=== PATIENT | male | born 1955 | race Caucasian/White ===

== ENCOUNTER 2022-11-29 08:34 | Outpatient (CLI) | payer MEDICARE, SELFPAY ==
--- NOTE | ~2022-11-29 | PE_ITS ---
EXAMINATION: PET skull to mid thigh DATE: 11/29/2022 10:53 INDICATION: Multiple nodules of lung TECHNIQUE: Blood glucose level was 107 mg/dL. 10.0 mCi of 18-fluorodeoxyglucose (18-FDG) was administ ered i.v. Low dose computed tomography (CT) images were acquired from the base of the brain to the pr oximal thighs for attenuation correction and anatomic localization. Positron emission tomography (PET ) images were acquired in the same distribution beginning 47 minutes after injection. Images includin g fused PET/CT images were reconstructed in axial, coronal, and sagittal planes. Automated exposure c ontrol technique was employed. The dose-length product was 1280.34mGy-cm. COMPARISON: None FINDINGS: Head/neck: There is symmetric increased activity in the oral cavity, laryngeal muscles, ocular muscles and rectu s capitis muscles without CT correlate, likely physiologic. No pathologically enlarged cervical lymph adenopathy or suspicious foci of increased FDG uptake in the visualized head or neck. Chest: The internal jugular central venous catheter with distal tip at the caudal superior vena cava. Left-s ided cardiac pacemaker with pair of left ventricular pacemaker leads which terminate at the apex of t he right ventricle. Respiratory motion and mild bibasilar atelectasis. 4 mm nodule in the right upper lobe with no discernible FDG activity. Calcified right lower lobe nodule and calcified right hilar l ymph nodes consistent with old granulomatous disease. No other suspicious pulmonary nodules or pleura l effusion. Cardiomegaly with atherosclerotic coronary artery calcific location and change of prior m edian sternotomy and coronary artery bypass grafting. Thoracic aorta is normal in caliber. No patholo gically enlarged or FDG avid thoracic lymphadenopathy. Surgical clips at the right axilla. Abdomen/pelvis/proximal thighs: Physiologic renal accumulation and excretion of FDG activity in the kidneys, bladder and along portio ns of ureters. Normal degree and heterogenous pattern of increased uptake throughout the liver withou t radiologic correlate or dominant FDG avid lesion. The gallbladder, pancreas and bilateral adrenal g lands are normal. Small splenic calcifications consistent with old granulomatous disease. Mild uptake scattered throughout the bowels without radiologic correlate, also likely physiologic. There are few scattered colonic diverticula without adjacent inflammatory stranding to suggest diverticulitis. Nor mal appendix. Increased fat within the bilateral inguinal canals which could be related to inguinal h ernias or body habitus. Stenting along the left external iliac and vein. No other abnormal foci of in creased FDG uptake or pathologically enlarged lymphadenopathy in the abdomen, pelvis or proximal thig hs. Musculoskeletal: Small focus of mild increased uptake associated with a recent-appearing rib fracture at the anterior right seventh rib. A few additional old healed rib fracture without FDG activity. No suspicious lytic , blastic or FDG avid bone lesions. Likely degenerative mild linear synovial uptake related to modera te osteoarthritis at the right acromioclavicular joint with associated subarticular cystic changes. S mall focus of likely extravasated activity in the left antecubital fossa. Likely physiologic activity along the musculature in the bilateral hands and forearms. IMPRESSION: 1. 4 mm right upper lobe nodule without discernible FDG uptake although sensitivity for [place] nod ules can be limited with patent. No other evident pulmonary nodules identified although no prior imag ing is provided for comparison. If the patient is low risk for lung cancer, no follow-up is needed. I f the patient is high risk (i.e., history of smoking or asbestos or significant radiation exposure), optional follow-up chest CT could be considered at 12 months.
[2022-11-29 09:33] LABS: Glucose Point of Care 107 mg/dl (65-105)
== END 2022-11-29 08:35 | disposition home or self-care (01) ==
PROVIDERS: PCP Internal Medicine; Visit Provider Internal Medicine
DX: R91.1 Solitary pulmonary nodule (principal); R93.89 Abnormal findings on diagnostic imaging of other specified body structures; E11.9 Type 2 diabetes mellitus without complications
CPT/HCPCS: 78815; A9552

== ENCOUNTER 2024-07-28 10:59 | Inpatient (IN) | payer MEDICARE, SELFPAY ==
--- NOTE | ~2024-07-28 | CT_ITS ---
EXAMINATION: CT lumbar spine wo con DATE: 07/28/2024 17:39 INDICATION: lbp x several days after heavy lifting . TECHNIQUE: Computed tomography (CT) of the lumbar spine was performed without intravenous contrast. A utomated exposure control and iterative reconstruction technique were employed. The dose-length produ ct was 1919.71 mGy-cm. COMPARISON: None. FINDINGS: 5 nonrib-bearing lumbar-type vertebral bodies. Pedicles intact. 9 mm anterolisthesis at L4- 5. Severe disc space narrowing at L4-5 with vacuum phenomenon. Mild degenerative disc changes at all remaining visualized levels. Bilateral pars defects at L4. Moderate mid and lower lumbar facet hypert rophy and sclerosis. Severe bilateral neural foraminal narrowing at L4-5. Congenitally narrow appeari ng spinal canal. Severe central canal narrowing at L2-3 secondary to degenerative disc and facet castellon ges including a likely left facet synovial cyst. Left external iliac vein stent. Atherosclerotic arterial calcifications. Pacing wires and coronary ar lu calcifications. Calcified right lower lobe granuloma. Cardiomegaly. Nonobstructing punctate righ t renal calcifications. Degenerative changes in the bilateral SI joints, pubic symphysis, and bilater al hips. IMPRESSION: No acute fracture or traumatic malalignment in the lumbar spine. Grade 1 anterolisthesis at L4-5 secondary to bilateral L4 pars defects. Severe central canal narrowing at L2-3 secondary to degenerative disc and facet changes including an anteriorly directed left facet synovial cyst. Severe degenerative disc disease at L4-5, with severe bilateral neural foraminal narrowing at this le thelma secondary to the listhesis and degenerative disc and facet change. Reviewed, dictated and finalized at location K. IMPRESSION: No acute fracture or traumatic malalignment in the lumbar spine. Grade 1 anterolisthesis at L4-5 secondary to bilateral L4 pars defects. Severe central canal narrowing at L2-3 secondary to degenerative disc and facet changes including an anteriorly directed left facet synovial cyst. Severe degenerative disc disease at L4-5, with severe bilateral neural foramina l narrowing at this level secondary to the listhesis and degenerative disc and facet change.
--- NOTE | ~2024-07-28 | XR_ITS ---
Portable chest x-ray Comparison: None Clinical History: End-stage renal disease Findings: Right-sided central venous catheter in satisfactory position. Lungs are clear, without foc al consolidation or pleural effusion. Cardiomediastinal silhouette is prominent, status post CABG wi th pacemaker device. Bones and soft tissues are unremarkable. Impression: Clear lungs. Support line, as above. Mild cardiomegaly, status post CABG with pacemaker device. Reviewed, dictated and finalized at location M. Impression: Clear lungs. Support line, as above. Mild cardiomegaly, status post CABG with pacemaker device.
[2024-07-28 11:01] VITALS: BP 146/95; PULSE 66; RESP 22; TEMP 37; O2SAT 99
[2024-07-28 16:55] VITALS: BP 148/78; PULSE 91; RESP 23; TEMP 36.8; O2SAT 99
--- NOTE | 2024-07-28 17:36 | ED.BACK ---
HPI - Back Pain/Injury General Chief Complaint: Back Pain/Injury <Alannah Klein PA-C - Last Filed: 07/29/24 03:44> Stated Complaint: back pain from pain management <Alannah Klein PA-C - Last Filed: 07/29/24 03:44> Time Seen by Provider: 07/28/24 17:01 <DENIS Velazco Last Filed: 07/29/24 03:44> Source: patient <DENIS Velazco Last Filed: 07/29/24 03:44> Mode of arrival: EMS <DENIS Velazco Last Filed: 07/29/24 03:44> Limitations: no limitations <DENIS Velazco Last Filed: 07/29/24 03:44> History of Present Illness HPI Narrative: Patient is a 68-year-old male, with PMH of chronic back pain, ESRD on HD MWF, HTN, CHF, AFIB, who presents to the ED via EMS with report of back pain. Patient reports his fell in the shower last . He attempted to help her off the ground when he felt he tweaked his back. States he began having more severe pain in his R lower back, radiating down RLE, on Saturday to the point he was unable to receive his dialysis treatment that day. He had been seen in the ED at [facility] twice over the weekend for this pain. 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 Patient does see pain management for his chronic back pain. Is prescribed [place] 10/325. Took several these this morning without improvement. Patient did ultimately receive his dialysis treatments over the weekend and yesterday. He sees Dr. Irwin with nephrology. Patient denies bowel or bladder incontinence, abdominal pain, numbness, saddle anesthesia, weakness. He does note that he has been having trouble moving/walking/managing at home with pain. <DENIS Velazco Last Filed: 07/29/24 03:44> Related Data Home Medications: Home Medications Medication Instructions Recorded Confirmed albuterol sulfate 90 mcg/actuation 2 puff inhalation Q4H PRN 07/28/24 07/28/24 aerosol inhaler shortness of breath/wheezing allopurinol 100 mg tablet 300 mg PO DAILY 07/28/24 07/28/24 apixaban 5 mg tablet (Eliquis) 5 mg PO BID 07/28/24 07/28/24 atorvastatin 40 mg tablet 40 mg PO DAILY 07/28/24 07/28/24 escitalopram oxalate 10 mg tablet 10 mg PO DAILY 07/28/24 07/28/24 hydrocodone 10 mg-acetaminophen 1 tablet PO Q6H PRN Pain 07/28/24 07/28/24 325 mg tablet insulin NPH-regular hum semi-syn 30 ml subcut BID 07/28/24 07/28/24 100 unit/mL (70-30) subcutaneous soln isosorbide mononitrate 60 mg 60 mg PO DAILY 07/28/24 07/28/24 tablet,extended release 24 hr levothyroxine 25 mcg tablet 25 mcg PO DAILY 07/28/24 07/28/24 methocarbamol 750 mg tablet 750 mg PO QID spasms 07/28/24 07/28/24 pantoprazole 40 mg tablet,delayed 40 mg PO DAILY 07/28/24 07/28/24 release sevelamer carbonate 800 mg tablet 800 mg PO TID 07/28/24 07/28/24 trazodone 50 mg tablet 50 mg PO HS 07/28/24 07/28/24 <Alannah Klein PA-C - Last Filed: 07/29/24 03:44> Allergies/Adverse Reactions: Allergies Allergy/AdvReac Type Severity Reaction Status Date / Time iohexol Allergy Unknown Verified 07/28/24 20:15 [From contrast - CT, X-RAY] <Alannah Klein PA-C - Last Filed: 07/29/24 03:44> Review of Systems Review of Systems: All systems reviewed & are unremarkable except as noted in HPI. <DENIS Velazco Last Filed: 07/29/24 03:44> All systems reviewed & are unremarkable except as noted in HPI and below <Alannah Klein PA-C - Last Filed: 07/29/24 03:44> [facility] Family History Family History: Family History (Updated 07/28/24 @ 21:07 by Colleen Allen RN) Mother Hypertension Cancer Diabetes mellitus Father Cancer Congestive heart failure Acute myocardial infarction <Alannah Klein PA-C - Last Filed: 07/29/24 03:44> Social History Social History: Social History (Reviewed 07/28/24 @
[2024-07-28] MEDS: methylPREDNISolone SOD SUCC 125 MG VIAL IV PUSH (17:45)
[2024-07-28] MEDS: methocarbamoL 500 MG TABLET 1000 MG PO (17:45)
[2024-07-28 18:06] LABS: Basophils Percent Auto 0.1 % (0.2-1.2); Eosinophils Absolute Auto 0.1 K/mm3 (0-0.3); Eosinophils Percent Auto 0.4 % (0-4.4); Hematocrit 32.4 % (42.0-52.0); Hemoglobin 10.4 g/dL (14.0-18.0); Immature Granulocyte Absolute 0.08 K/mm3 (0.00-0.031); Immature Granulocyte Percent A 0.5 % (0-0.5); Lymphocytes Absolute Auto 0.98 K/mm3 (0.9-3.2); Lymphocytes Percent Auto 6.5 % (18.3-44.2); Mean Corpuscular HGB Conc 32.1 g/dl (32-36); Mean Corpuscular Hemoglobin 34.8 pg (26-34); Mean Corpuscular Volume 108.4 fl (80-100); Mean Platelet Volume 11.9 fl (7.4-10.4); Monocytes Absolute Auto 1.2 K/mm3 (0.1-0.6); Monocytes Percent Auto 8.1 % (2.6-8.5); Neutrophils Absolute Auto 12.6 K/mm3 (1.3-6.7); Neutrophils Percent Auto 84.4 % (45.5-73.1); Platelet Count Result 181 k/mm3 (150-375); Red Blood Count 2.99 M/mm3 (4.6-6.20); Red Cell Distribution Width 15.9 % (11.5-14.5)
[2024-07-28 18:17] LABS: Alanine Aminotransferase 12 U/L (6-50); Albumin Level 3.6 g/dL (3.5-5.1); Alkaline Phosphatase 92 U/L (38-126); Anion Gap 13 mmol/L (4-12); Aspartate Amino Transferase 30 U/L (17-59); Bilirubin,Total 0.8 mg/dL (0.2-1.3); Blood Urea Nitrogen 62 mg/dL (9-20); Calcium 8.4 mg/dL (8.4-10.2); Carbon Dioxide 27 mmol/L (22-30); Chloride 93 mmol/L (98-107); Estimated CRCL calculation 10 ml/min; Estimated Glomerular Filt Rate 6; Glucose 113 mg/dL (65-110); Potassium 4.8 mmol/L (3.4-5.0); Sodium 133 mmol/L (137-145)
[2024-07-28 18:35] LABS: Anisocytosis 1+; Platelet Estimate Adequate (Adequate)
[2024-07-28 18:36] LABS: Ovalocytes 1+; Schistocytes None Seen
[2024-07-28] MEDS: HYDROmorphone HCL INJ (*CRX) 1 MG/ML SYR 0.5 MG IV PUSH (18:49)
[2024-07-28] MEDS: ACETAMINOPHEN 500 MG TABLET 1000 MG PO (19:50)
--- NOTE | 2024-07-28 19:59 | PM.IMHP ---
H&P: HPI History of Present Illness Date/Time: 07/28/24 19:59 Chief Complaint: SCIATICA Narrative: THIS IS A 68-YEAR-OLD MALE WITH PAST MEDICAL HISTORY SIGNIFICANT FOR MORBID OBESITY, END-STAGE RENAL DISEASE ON HEMODIALYSIS, GOUT, ANEMIA OF CHRONIC DISEASE, CHRONIC BACK PAIN. PATIENT PRESENTS TO THE EMERGENCY ROOM DUE TO INTRACTABLE BACK PAIN WITH RADIATION TO THE TOES THROUGH HIS HEALTH BACK OF THE THIGH AND CALF PAIN WITH AMBULATION, PAIN WITH MOVEMENT, ONLY PAIN MEDICATION AND LAYING IN BED RELIEVES THE PAIN PATIENT HAS HAD TAXING EFFORT DOING HIS ADLS DUE TO THE PAIN. EXAMINATION: CT lumbar spine wo con DATE: 07/28/2024 17:39 INDICATION: lbp x several days after heavy lifting . TECHNIQUE: Computed tomography (CT) of the lumbar spine was performed without intravenous contrast. Automated exposure control and iterative reconstruction technique were employed. The dose-length product was 1919.71 mGy-cm. COMPARISON: None. FINDINGS: 5 nonrib-bearing lumbar-type vertebral bodies. Pedicles intact. 9 mm anterolisthesis at L4-5. Severe disc space narrowing at L4-5 with vacuum phenomenon. Mild degenerative disc changes at all remaining visualized levels. Bilateral pars defects at L4. Moderate mid and lower lumbar facet hypertrophy and sclerosis. Severe bilateral neural foraminal narrowing at L4-5. Congenitally narrow appearing spinal canal. Severe central canal narrowing at L2-3 secondary to degenerative disc and facet changes including a likely left facet synovial cyst. Left external iliac vein stent. Atherosclerotic arterial calcifications. Pacing wires and coronary artery calcifications. Calcified right lower lobe granuloma. Cardiomegaly. Nonobstructing punctate right renal calcifications. Degenerative changes in the bilateral SI joints, pubic symphysis, and bilateral hips. IMPRESSION: No acute fracture or traumatic malalignment in the lumbar spine. Grade 1 anterolisthesis at L4-5 secondary to bilateral L4 pars defects. Severe central canal narrowing at L2-3 secondary to degenerative disc and facet changes including an anteriorly directed left facet synovial cyst. Severe degenerative disc disease at L4-5, with severe bilateral neural foraminal narrowing at this level secondary to the listhesis and degenerative disc and facet change. Review of Systems Review of Systems: lower back pain with radiation down the R leg, shooting down to his toes, worse with movement PMF Family History Family History (Updated 07/28/24 @ 21:07 by Colleen Allen RN) Mother Hypertension Cancer Diabetes mellitus Father Cancer Congestive heart failure Acute myocardial infarction Social History Social History Smoking packs per day: 2 Smoking cigarettes per day: 40.0 Years smoked: 40 Smoking pack-years: 80.00 Smoking status: Former smoker Alcohol intake: never Substance use: never Substance use type: does not use Do You Feel Safe in your Home?: Yes Lack of Transportation: No Lack of Food: Never True Current Housing: I Have Housing Concerned About Future Housing: No Difficulty Paying Gas/Electric Bills: No Difficulty Paying for Meds: No Currently Unemployed: No Education: High School Diploma/GED Difficulty w/ Childcare or Family Care: No Spiritual care concerns: No Meds Home Medications and Allergies Home Medications Medication Instructions Recorded Confirmed Type albuterol sulfate 90 mcg/actuation 2 puff inhalation Q4H PRN 07/28/24 07/28/24 History aerosol inhaler shortness of breath/wheezing allopurinol 100 mg tablet 300 mg PO DAILY 07/28/24 07/28/24 History apixaban 5 mg tablet (Eliquis) 5 mg PO BID 07/28/24 07/28/24 History atorvastatin 40 mg tablet 40 mg PO DAILY 07/28/24 07/28/24 History escitalopram oxalate 10 mg tablet 10 mg PO DAILY 07/28/24 07/28/24 History hydrocodone 10 mg-acetaminophen 1 tablet PO Q6H [place]
[2024-07-28] MEDS: dexAMETHasone SOD PHOS INJ 10 MG/ML 1 ML VIAL IV PUSH (20:40)
--- NOTE | 2024-07-28 20:41 | PC.NURSE ---
Pt does not want to be placed in a hospital gown at this time. Pt may want one later, but not now.
[2024-07-28 20:44] VITALS: BP 134/63; PULSE 67; RESP 16; TEMP 36.5; O2SAT 98
[2024-07-28 21:25] VITALS: BP 134/63; PULSE 67; RESP 16; TEMP 36.5; O2SAT 98
--- NOTE | 2024-07-28 21:40 | ADMGEN ---
This patient, Yobany Garner, was admitted to [facility] Surg Room 306-01. Patient/family oriented to hospital policies and general routines including ID bracelet, bed and alarms, visiting hours, pain management, procedures, bathroom and other care routines, personal items, smoking policy, room service/diet, and visiting hours. Information on how to activate the Rapid Response Team has been discussed. Patient/Family are encouraged to report perceived risks to care and to ask questions if they do not understand what they are told or what they should do.
[2024-07-28 22:00] VITALS: BP 149/51; PULSE 69; RESP 22; TEMP 36.9; O2SAT 96
[2024-07-28 22:04] VITALS: BMI 40.5
[2024-07-28 23:16] LABS: MRSA (PCR) NOT DETECTED (NOT DETECTE)
[2024-07-29] VITALS (23 sets, daily range): BP systolic 123–164; BP diastolic 44–92; PULSE 56–67; RESP 16–20; TEMP 36.5–37.1; O2SAT 94–100
[2024-07-29] MEDS: HYDROcodone/acetaminophen (*CRX) 10-325 MG TABLET 1 TAB PO (07:00)
[2024-07-29] MEDS: LEVOTHYROXINE SODIUM 25 MCG TABLET PO (07:00)
[2024-07-29 07:20] LABS: Hepatitis B Surface Antigen Negative (Negative)
[2024-07-29 07:32] LABS: Basophils Percent Auto 0.1 % (0.2-1.2); Hematocrit 36.3 % (42.0-52.0); Hemoglobin 11.4 g/dL (14.0-18.0); Immature Granulocyte Absolute 0.07 K/mm3 (0.00-0.031); Immature Granulocyte Percent A 0.6 % (0-0.5); Lymphocytes Absolute Auto 0.42 K/mm3 (0.9-3.2); Lymphocytes Percent Auto 3.4 % (18.3-44.2); Mean Corpuscular HGB Conc 31.4 g/dl (32-36); Mean Corpuscular Hemoglobin 33.8 pg (26-34); Mean Corpuscular Volume 107.7 fl (80-100); Mean Platelet Volume 11.5 fl (7.4-10.4); Monocytes Absolute Auto 0.1 K/mm3 (0.1-0.6); Monocytes Percent Auto 1.1 % (2.6-8.5); Neutrophils Absolute Auto 11.9 K/mm3 (1.3-6.7); Neutrophils Percent Auto 94.8 % (45.5-73.1); Platelet Count Result 188 k/mm3 (150-375); Red Blood Count 3.37 M/mm3 (4.6-6.20); Red Cell Distribution Width 15.4 % (11.5-14.5); White Blood Count 12.5 K/mm3 (4.5-10.0)
[2024-07-29 07:38] LABS: Hepatitis B Surface Anti Res Negative
[2024-07-29 07:50] LABS: Macrocytosis 1+ (NORMAL); Platelet Estimate Adequate (Adequate); Schistocytes None Seen
[2024-07-29 07:51] LABS: Anisocytosis 1+
[2024-07-29 07:53] LABS: Alanine Aminotransferase 14 U/L (6-50); Albumin Level 3.9 g/dL (3.5-5.1); Alkaline Phosphatase 95 U/L (38-126); Anion Gap 16 mmol/L (4-12); Aspartate Amino Transferase 30 U/L (17-59); Bilirubin,Total 0.8 mg/dL (0.2-1.3); Blood Urea Nitrogen 83 mg/dL (9-20); Carbon Dioxide 27 mmol/L (22-30); Chloride 89 mmol/L (98-107); Estimated CRCL calculation 9 ml/min; Estimated Glomerular Filt Rate 5; Glucose 176 mg/dL (65-110); Magnesium 2.2 mg/dL (1.6-2.3); Phosphorus 7.8 mg/dL (2.5-4.5); Potassium 5.9 mmol/L (3.4-5.0); Sodium 132 mmol/L (137-145)
[2024-07-29] MEDS: dexAMETHasone SOD PHOS INJ 10 MG/ML 1 ML VIAL IV PUSH ×3 (08:41→19:22)
[2024-07-29] MEDS: INSULIN HUMAN ISOPHAN/REGULAR 70/30 (*BKC) 100 UNITS/ML 30 UNITS SUB-Q ×2 (08:45→17:15)
[2024-07-29] MEDS: HEPARIN SODIUM 1,000 UNITS/ML VIAL 5000 UNITS IV PUSH (09:20)
[2024-07-29] MEDS: HEPARIN SODIUM 1,000 UNITS/ML VIAL 500 UNITS IV PUSH ×4 (09:24→12:24)
--- NOTE | 2024-07-29 10:00 | PM.IMHP ---
H&P: HPI History of Present Illness Date/Time: 07/29/24 10:00 [facility] Family History Family History (Updated 07/28/24 @ 21:07 by Colleen Allen RN) Mother Hypertension Cancer Diabetes mellitus Father Cancer Congestive heart failure Acute myocardial infarction Social History Social History Smoking packs per day: 2 Smoking cigarettes per day: 40.0 Years smoked: 40 Smoking pack-years: 80.00 Smoking status: Former smoker Alcohol intake: never Substance use: never Substance use type: does not use Do You Feel Safe in your Home?: Yes Lack of Transportation: No Lack of Food: Never True Current Housing: I Have Housing Concerned About Future Housing: No Difficulty Paying Gas/Electric Bills: No Difficulty Paying for Meds: No Currently Unemployed: No Education: High School Diploma/GED Difficulty w/ Childcare or Family Care: No Spiritual care concerns: No Meds Home Medications and Allergies Home Medications Medication Instructions Recorded Confirmed Type albuterol sulfate 90 mcg/actuation 2 puff inhalation Q4H PRN 07/28/24 07/28/24 History aerosol inhaler shortness of breath/wheezing allopurinol 100 mg tablet 300 mg PO DAILY 07/28/24 07/28/24 History apixaban 5 mg tablet (Eliquis) 5 mg PO BID 07/28/24 07/28/24 History atorvastatin 40 mg tablet 40 mg PO DAILY 07/28/24 07/28/24 History escitalopram oxalate 10 mg tablet 10 mg PO DAILY 07/28/24 07/28/24 History hydrocodone 10 mg-acetaminophen 1 tablet PO Q6H PRN Pain 07/28/24 07/28/24 History 325 mg tablet insulin NPH-regular hum semi-syn 30 ml subcut BID 07/28/24 07/28/24 History 100 unit/mL (70-30) subcutaneous soln isosorbide mononitrate 60 mg 60 mg PO DAILY 07/28/24 07/28/24 History tablet,extended release 24 hr levothyroxine 25 mcg tablet 25 mcg PO DAILY 07/28/24 07/28/24 History methocarbamol 750 mg tablet 750 mg PO QID spasms 07/28/24 07/28/24 History pantoprazole 40 mg tablet,delayed 40 mg PO DAILY 07/28/24 07/28/24 History release sevelamer carbonate 800 mg tablet 800 mg PO TID 07/28/24 07/28/24 History trazodone 50 mg tablet 50 mg PO HS 07/28/24 07/28/24 History Allergies Allergy/AdvReac Type Severity Reaction Status Date / Time iohexol Allergy Unknown Verified 07/28/24 20:15 [From contrast - CT, X-RAY] Vital Signs Vital Signs - 24 hr 07/28/24 11:01 07/28/24 16:55 07/28/24 20:44 Temperature 98.6 F 98.3 F 97.7 F Pulse Rate 66 91 67 Respiratory Rate 22 H 23 H 16 Blood Pressure 146/95 H 148/78 H 134/63 Pulse Oximetry 99 99 98 Oxygen Delivery Room Air 07/28/24 21:25 07/28/24 22:00 07/28/24 22:45 Temperature 97.7 F 98.5 F Pulse Rate 67 69 Respiratory Rate 16 22 H Blood Pressure 134/63 149/51 H Pulse Oximetry 98 96 Oxygen Delivery Room Air 07/29/24 06:00 Temperature 97.7 F Pulse Rate 64 Respiratory Rate 18 Blood Pressure 123/69 Pulse Oximetry 100 Oxygen Delivery Exam Narrative: H&P: Results Labs Labs: Short CBC 07/28/24 07/29/24 Range/Units 18:01 07:26 WBC 15.0 H 12.5 H (4.5-10.0) K/mm3 Hgb 10.4 L 11.4 L (14.0-18.0) g/dL Hct 32.4 L 36.3 L (42.0-52.0) % Plt Count 181 188 (150-375) k/mm3 [facility] 07/28/24 07/29/24 18:01 07:26 Sodium 133 L 132 L Potassium 4.8 5.9 H Chloride 93 L 89 L Carbon Dioxide 27 27 BUN 62 H 83 H D Creatinine 8.80 H 10.00 H Glucose 113 H 176 H Calcium 8.4 9.0 Liver Function 07/28/24 07/29/24 Range/Units 18:01 07:26 Total Bilirubin 0.8 0.8 (0.2-1.3) mg/dL AST 30 30 (17-59) U/L ALT 12 14 (6-50) U/L Alkaline Phosphatase 92 95 (38-126) U/L Albumin 3.6 3.9 (3.5-5.1) g/dL
[2024-07-29 10:50] LABS: Folic Acid 2.5 ng/mL (2.76->20)
--- NOTE | 2024-07-29 12:11 | PM.CNNEP ---
Assessment and Plan Assessment and plan (1) End stage renal disease: Code(s): N18.6 - End stage renal disease Status: Chronic Assessment and Plan: HD today continue outpatient schedule of Sat/Sat/Fridays follow electrolytes, volume status, and clearance known to require 4.5 hour treatments to achieve adequate Kt/V and clearance (2) Hyperkalemia: Code(s): E87.5 - Hyperkalemia Status: Acute Assessment and Plan: as noted by AM labs adjust dialysis bath to compensate lokelma PRN follow K+ levels (3) Low back pain: Code(s): M54.50 - Low back pain, unspecified Status: Acute Assessment and Plan: acute on chronic issues CT of lumbar spine findings noted -- no acute findings continue pain control PT/OT as tolerated Neurosurgery consulted for further recommendations possible benefit from acute rehab on discharge(?) (4) Hypertension: Code(s): I10 - Essential (primary) hypertension Status: Chronic Assessment and Plan: despite history, reasonable control with minimal medications suspect pain medication indirectly helping as well follow trend of hemodynamics (5) Anemia: Code(s): D64.9 - Anemia, unspecified Status: Chronic Assessment and Plan: due to ESRD H/H at goal AYALA with HD as needed follow H/H (6) Diabetes: Code(s): E11.9 - Type 2 diabetes mellitus without complications Status: Chronic Assessment and Plan: follow accu-cheks glycemic control per hospitalists I will continue to follow the patient with you while he remains hospitalized and make further recommendations as deemed necessary. Thank you for allowing me to participate in the care of this patient. History of Present Illness Reason for Consult Consult date: 07/29/24 Reason for consult: end stage renal disease Chief Complaint Chief complaint: Acute on Chronic Low Back Pain/DDD/ESRD on HD History of Present Illness Narrative: The patient is a 68-year-old male with a past medical history as outlined below who presented to [facility] Emergency room via EMS for severe back pain. The patient states that his fell in the shower several days ago. He attempted to help her off the ground when he felt like he weak his back. Ever since then, he has been having more severe back pain more so on the right side with radiation down to his right lower extremity. The pain was apparently so severe that he was unable to get his scheduled dialysis treatment last Saturday. Due the severity of his back pain, he has apparently been seen at [facility] Emergency room at least twice over the weekend for this pain. I am not clear was entirely done on those ER visits but he was subsequently discharged and instructed to follow up with his pain management doctor. He did go see his pain management doctor just recently but was in such severe pain he was instructed to go to the ER for further assessment. In the interim, he had been taking [place] 10/325 mg tablets but this did not seem to really improve his pain whatsoever. Given the severity of his pain, he has had difficulty ambulating in general as well. Given these multitude of issues and problems, he was brought to the emergency room for further assessment. Workup and evaluation in the emergency room demonstrated the patient to be in mild distress secondary to his pain and had difficulty achieving any type of comfort while being in the stretcher. Even sitting upright in the stretcher did not seem to really help his pain whatsoever. Routine blood test demonstrated labs consistent with his known history of end-stage renal disease with no other significant abnormalities. In attempt to try and curves itis pain he was given a combination of Tylenol, muscle relaxers, Dilaudid, and steroids which did improve his pain to some degree but he was still quite uncomfortable. C
--- NOTE | 2024-07-29 12:42 | P.PNIM_ITS ---
Progress Note: A&P Assessment and Plan (1) Strain of lumbar region: Qualifiers: Encounter type: initial encounter Qualified Code(s): S39.012A - Strain of muscle, fascia and tendon of lower back, initial encounter Code(s): S39.012A - Strain of muscle, fascia and tendon of lower back, initial encounter Status: Acute Assessment and Plan: * Ct Lumbar with severe DDD * Pain control * PT/OT * Steroids * Will be following up with pain management clinic for his chronic adrienne pain * Lidocaine patch (2) Acute exacerbation of chronic low back pain: Code(s): M54.50 - Low back pain, unspecified; G89.29 - Other chronic pain Status: Acute Assessment and Plan: * SEE ABOVE (3) ESRD on hemodialysis: Code(s): N18.6 - End stage renal disease; Z99.2 - Dependence on renal dialysis Status: Acute Assessment and Plan: * Nephrology consulted * Dialysis MW * monitor electrolytes replenish as needed (4) Anemia of chronic disease: Code(s): D63.8 - Anemia in other chronic diseases classified elsewhere Status: Acute Assessment and Plan: * Secondary to ESRD * Hgb stable * CBC daily (5) Morbid obesity with BMI of 40.0-44.9, adult: Code(s): E66.01 - Morbid (severe) obesity due to excess calories; Z68.41 - Body mass index [BMI] 40.0-44.9, adult Status: Acute Assessment and Plan: Obesity * encourage increased on physical activity and lifestyle modifications * BMI 40.5. * Diet exercise counseling done. * consult to dietitian Plan Code status: Full code per patient DVT prophylaxis: Heparin Stress ulcer prophylaxis: Protonix 40 daily PT/OT notes: PT/OT pending Disposition: Patient continues admission on the medical unit for further pain control due to acute on chronic back pain PT OT pending patient to follow-up with pain specialist following discharge. Time Spent With Patient Time with patient: 15 - 25 minutes Subjective Date/time seen: 07/29/24 12:42 Interval history: Admission: Medical Chart THIS IS A 68-YEAR-OLD MALE WITH PAST MEDICAL HISTORY SIGNIFICANT FOR MORBID OBESITY, END-STAGE RENAL DISEASE ON HEMODIALYSIS, GOUT, ANEMIA OF CHRONIC DISEASE, CHRONIC BACK PAIN. PATIENT PRESENTS TO THE EMERGENCY ROOM DUE TO INTRACTABLE BACK PAIN WITH RADIATION TO THE TOES THROUGH HIS HEALTH BACK OF THE THIGH AND CALF PAIN WITH AMBULATION, PAIN WITH MOVEMENT, ONLY PAIN MEDICATION A ND LAYING IN BED RELIEVES THE PAIN PATIENT HAS HAD TAXING EFFORT DOING HIS ADLS DUE TO THE PAIN. 07/29/2024: Assumed Care Patient seen in dialysis do mildly better but has severe pain with any movement. Patient stated the pain started after he helped his out the bath tub. Patient with chronic back pain was seen at the pain specialist who sent him to the ER for immediate pain control stated he was unable to ambulate in their office but can follow-up after discharge. PT/OT pending. Review of Systems Review of Systems: All systems reviewed & ar
--- NOTE | 2024-07-29 12:42 | PM.IMPN ---
Progress Note: A&P Assessment and Plan (1) Strain of lumbar region: Qualifiers: Encounter type: initial encounter Qualified Code(s): S39.012A - Strain of muscle, fascia and tendon of lower back, initial encounter Code(s): S39.012A - Strain of muscle, fascia and tendon of lower back, initial encounter Status: Acute Assessment and Plan: Ct Lumbar with severe DDD Pain control PT/OT Steroids Will be following up with pain management clinic for his chronic adrienne pain Lidocaine patch (2) Acute exacerbation of chronic low back pain: Code(s): M54.50 - Low back pain, unspecified; G89.29 - Other chronic pain Status: Acute Assessment and Plan: SEE ABOVE (3) ESRD on hemodialysis: Code(s): N18.6 - End stage renal disease; Z99.2 - Dependence on renal dialysis Status: Acute Assessment and Plan: Nephrology consulted Dialysis MWF monitor electrolytes replenish as needed (4) Anemia of chronic disease: Code(s): D63.8 - Anemia in other chronic diseases classified elsewhere Status: Acute Assessment and Plan: Secondary to ESRD Hgb stable CBC daily (5) Morbid obesity with BMI of 40.0-44.9, adult: Code(s): E66.01 - Morbid (severe) obesity due to excess calories; Z68.41 - Body mass index [BMI] 40.0-44.9, adult Status: Acute Assessment and Plan: Obesity encourage increased on physical activity and lifestyle modifications BMI 40.5. Diet exercise counseling done. consult to dietitian Plan Code status: Full code per patient DVT prophylaxis: Heparin Stress ulcer prophylaxis: Protonix 40 daily PT/OT notes: PT/OT pending Disposition: Patient continues admission on the medical unit for further pain control due to acute on chronic back pain PT OT pending patient to follow-up with pain specialist following discharge. Time Spent With Patient Time with patient: 15 - 25 minutes Subjective Date/time seen: 07/29/24 12:42 Interval history: Admission: Medical Chart THIS IS A 68-YEAR-OLD MALE WITH PAST MEDICAL HISTORY SIGNIFICANT FOR MORBID OBESITY, END-STAGE RENAL DISEASE ON HEMODIALYSIS, GOUT, ANEMIA OF CHRONIC DISEASE, CHRONIC BACK PAIN. PATIENT PRESENTS TO THE EMERGENCY ROOM DUE TO INTRACTABLE BACK PAIN WITH RADIATION TO THE TOES THROUGH HIS HEALTH BACK OF THE THIGH AND CALF PAIN WITH AMBULATION, PAIN WITH MOVEMENT, ONLY PAIN MEDICATION AND LAYING IN BED RELIEVES THE PAIN PATIENT HAS HAD TAXING EFFORT DOING HIS ADLS DUE TO THE PAIN. 07/29/2024: Assumed Care Patient seen in dialysis do mildly better but has severe pain with any movement. Patient stated the pain started after he helped his out the bath tub. Patient with chronic back pain was seen at the pain specialist who sent him to the ER for immediate pain control stated he was unable to ambulate in their office but can follow-up after discharge. PT/OT pending. Review of Systems Review of Systems: All systems reviewed & are unremarkable except as noted in HPI and below Exam Narrative: Physical Exam: GENERAL: Alert and oriented x 3. No acute distress. EYES: EOMI. No scleral icterus. PERRLA. nystagmus HEENT: Moist mucous membranes. LUNGS: Clear to auscultation bilaterally. No accessory muscle use. CARDIOVASCULAR: Regular rate and rhythm. No murmur. No JVD. S1-S2 ABDOMEN: Soft, non tenderness and non-distended. No palpable masses. EXTREMITIES: No edema. Pain with movement BLE SKIN: No rashes or lesions. Skin warm, dry. NEUROLOGIC: No focal neurological deficits. CN II-XII grossly intact PSYCHIATRIC: Appropriate mood and affect. Good judgement and insight. No visual or auditory hallucinations. No suicidal or homicidal ideation. Objective Data Vital Signs Vital Signs: Vital Signs - 24 hr 07/28/24 16:55 07/28/24 20:44 07/28/24 21:25 Temperature 98.3 F 97.7 F 97.7 F Pulse Rate
[2024-07-29] MEDS: EPOETIN ALFA-EPBX 4,000 UNITS/ML VIAL 4000 UNITS IV PUSH (13:02)
[2024-07-29] MEDS: HEPARIN SODIUM 1,000 UNITS/ML VIAL 6000 UNITS IV PUSH (13:48)
[2024-07-29] MEDS: allopurinoL 300 MG TABLET PO (14:11)
[2024-07-29] MEDS: methocarbamoL 750 MG TABLET PO ×3 (14:12→20:26)
[2024-07-29] MEDS: ESCITALOPRAM OXALATE 10 MG TABLET PO (14:12)
[2024-07-29] MEDS: APIXABAN 5 MG TABLET PO ×2 (14:12→20:26)
[2024-07-29] MEDS: PANTOPRAZOLE 40 MG TABLET PO (14:12)
[2024-07-29] MEDS: ATORVASTATIN 40 MG TABLET PO (14:12)
[2024-07-29] MEDS: SEVELAMER CARBONATE 800 MG TABLET PO ×2 (14:12→16:32)
[2024-07-29] MEDS: ISOSORBIDE MONONITRATE 60 MG TAB.ER.24H PO (14:12)
[2024-07-29] MEDS: HYDROmorphone HCL INJ (*CRX) 1 MG/ML SYR IV PUSH ×2 (14:16→19:26)
[2024-07-29 17:03] LABS: Glucose Point of Care 233 mg/dl (65-105)
--- NOTE | 2024-07-29 19:33 | WPDNEUROSGPN ---
Progress Note: A&P Assessment and Plan (1) Chronic back pain: Code(s): M54.9 - Dorsalgia, unspecified; G89.29 - Other chronic pain Status: Acute Plan Received call regarding Mr. Garner with acute on chronic back pain. I reviewed his CT lumbar spine which indicates multilevel degenerative spondylosis. He is not a surgical candidate at this time. Would recommend weight loss, physical therapy, pain management evaluation. He needs an MRI lumbar spine without contrast for further workup of his lumbar spine pathology. Subjective Date/time seen: 07/29/24 19:33 Objective Data Vital Signs Vital Signs: Vital Signs - 24 hr 07/28/24 20:44 07/28/24 21:25 07/28/24 22:00 Temperature 36.5 C 36.5 C 36.9 C Pulse Rate 67 67 69 Respiratory Rate 16 16 22 H Blood Pressure 134/63 134/63 149/51 H Pulse Oximetry 98 98 96 Oxygen Delivery 07/28/24 22:45 07/29/24 06:00 07/29/24 09:05 Temperature 36.5 C 36.6 C Pulse Rate 64 56 L Respiratory Rate 18 16 Blood Pressure 123/69 151/61 H Pulse Oximetry 100 Oxygen Delivery Room Air 07/29/24 09:24 07/29/24 11:00 07/29/24 11:30 Temperature Pulse Rate 60 60 66 Respiratory Rate Blood Pressure 164/63 H 139/60 150/60 H Pulse Oximetry Oxygen Delivery 07/29/24 09:30 07/29/24 09:45 07/29/24 10:00 Temperature Pulse Rate 58 L 56 L 60 Respiratory Rate Blood Pressure 143/60 H 148/65 H 130/59 L Pulse Oximetry Oxygen Delivery 07/29/24 10:15 07/29/24 10:30 07/29/24 10:45 Temperature Pulse Rate 60 63 61 Respiratory Rate Blood Pressure 142/62 H 133/64 126/60 Pulse Oximetry Oxygen Delivery 07/29/24 11:15 07/29/24 08:41 07/29/24 11:45 Temperature Pulse Rate 60 61 Respiratory Rate Blood Pressure 144/64 H 144/67 H Pulse Oximetry Oxygen Delivery Room Air 07/29/24 12:00 07/29/24 12:15 07/29/24 12:30 Temperature Pulse Rate 67 60 61 Respiratory Rate Blood Pressure 151/75 H 149/68 H 143/69 H Pulse Oximetry Oxygen Delivery 07/29/24 12:45 07/29/24 13:15 07/29/24 13:32 Temperature Pulse Rate 63 62 66 Respiratory Rate Blood Pressure 135/92 H 144/66 H 157/66 H Pulse Oximetry Oxygen Delivery 07/29/24 13:38 07/29/24 13:00 07/29/24 14:41 Temperature 36.5 C Pulse Rate 63 63 Respiratory Rate 16 Blood Pressure 146/67 H 132/64 Pulse Oximetry Oxygen Delivery Room Air 07/29/24 14:00 07/29/24 15:22 Temperature 37.1 C Pulse Rate 65 Respiratory Rate 16 Blood Pressure 123/44 L Pulse Oximetry 95 Oxygen Delivery Room Air Intake/Output Intake/Output: Intake & Output 07/26/24 07/27/24 07/28/24 07/29/24 23:59 23:59 23:59 23:59 Intake Total 1440 Output Total 2000 Balance -560 Meds/Results Medications: Active Medications Generic Name Dose Route Start Last Admin Trade Name Freq PRN Reason Stop Dose Admin Acetaminophen 1,000 mg 07/28/24 20:01 Acetaminophen 500 Mg Tablet PO Q6H PRN Mild Pain (1-3) or Fever Hydrocodone Bitart/Acetaminophen 1 tab 07/29/24 05:27 07/29/24 07:00 Hydrocodone/Acetaminophen (*Crx) 10-325 Mg Tablet PO 1 tab Q6H PRN Administration Pain Rated 4-6 Albuterol 2 puff 07/29/24 05:27 Albuterol Sulfate (*Sp) Aerosol 1 Puff INHALATION Q4HRT PRN shortness of breath/wheezing Allopurinol 300 mg 07/29/24 09:00 07/29/24 14:11 Allopurinol 300 Mg Tablet PO 300 mg DAILY KYAW Administration Apixaban 5 mg 07/29/24 09:00 07/29/24 14:12 Apixaban 5 Mg Tablet PO 5 mg Q12HR KYAW Administration Atorvastatin Calcium 40 mg 07/29/24 09:00 07/29/24 14:12 Atorvastatin 40 Mg Tablet PO 40 mg DAILY KYAW Administration Dexamethasone Sodium Phosphate 10 mg 07/29/24 06:51 07/29/24 19:22 Dexamethasone Sod Phos Inj 10 Mg/Ml 1 Ml Vial IV PUSH 10 mg Q6HR KYAW Administration Dextrose 12.5 gm 07/28/24 20:01 Dextrose 50% 25 Gm/50 Ml Syringe IV PUSH
[2024-07-29] MEDS: traZODone HCL 50 MG TABLET PO (20:26)
[2024-07-30] MEDS: HYDROcodone/acetaminophen (*CRX) 10-325 MG TABLET 1 TAB PO (02:25)
[2024-07-30] MEDS: dexAMETHasone SOD PHOS INJ 10 MG/ML 1 ML VIAL IV PUSH ×4 (02:26→17:07)
[2024-07-30] MEDS: HYDROmorphone HCL INJ (*CRX) 1 MG/ML SYR IV PUSH (05:54)
[2024-07-30] MEDS: LEVOTHYROXINE SODIUM 25 MCG TABLET PO (05:55)
[2024-07-30 05:57] VITALS: BP 130/65; PULSE 61; RESP 16; TEMP 36.5; O2SAT 99
[2024-07-30 06:34] LABS: Hematocrit 34.1 % (42.0-52.0); Hemoglobin 10.8 g/dL (14.0-18.0); Mean Corpuscular HGB Conc 31.7 g/dl (32-36); Mean Corpuscular Hemoglobin 34.4 pg (26-34); Mean Corpuscular Volume 108.6 fl (80-100); Mean Platelet Volume 12.3 fl (7.4-10.4); Platelet Count Result 201 k/mm3 (150-375); Red Blood Count 3.14 M/mm3 (4.6-6.20); Red Cell Distribution Width 15.4 % (11.5-14.5); White Blood Count 12.2 K/mm3 (4.5-10.0)
[2024-07-30 06:44] LABS: Alanine Aminotransferase 13 U/L (6-50); Albumin Level 3.6 g/dL (3.5-5.1); Alkaline Phosphatase 85 U/L (38-126); Anion Gap 14 mmol/L (4-12); Aspartate Amino Transferase 21 U/L (17-59); Bilirubin,Total 0.7 mg/dL (0.2-1.3); Blood Urea Nitrogen 69 mg/dL (9-20); Calcium 8.6 mg/dL (8.4-10.2); Carbon Dioxide 27 mmol/L (22-30); Chloride 92 mmol/L (98-107); Estimated CRCL calculation 12 ml/min; Estimated Glomerular Filt Rate 7; Glucose 188 mg/dL (65-110); Magnesium 2.2 mg/dL (1.6-2.3); Potassium 5.1 mmol/L (3.4-5.0); Sodium 133 mmol/L (137-145)
[2024-07-30 07:20] LABS: Glucose Point of Care 179 mg/dl (65-105)
[2024-07-30] MEDS: SEVELAMER CARBONATE 800 MG TABLET PO ×3 (09:20→17:07)
[2024-07-30] MEDS: methocarbamoL 750 MG TABLET PO ×4 (09:20→22:00)
[2024-07-30] MEDS: ESCITALOPRAM OXALATE 10 MG TABLET PO (09:20)
[2024-07-30] MEDS: allopurinoL 300 MG TABLET PO (09:20)
[2024-07-30] MEDS: PANTOPRAZOLE 40 MG TABLET PO (09:20)
[2024-07-30] MEDS: ISOSORBIDE MONONITRATE 60 MG TAB.ER.24H PO (09:20)
[2024-07-30] MEDS: APIXABAN 5 MG TABLET PO ×2 (09:21→22:00)
[2024-07-30] MEDS: LIDOCAINE 5% PATCH 1 PATCH TRANSDERM (09:21)
[2024-07-30] MEDS: ATORVASTATIN 40 MG TABLET PO (09:21)
[2024-07-30] MEDS: INSULIN HUMAN ISOPHAN/REGULAR 70/30 (*BKC) 100 UNITS/ML 30 UNITS SUB-Q ×2 (09:22→17:08)
--- NOTE | 2024-07-30 09:46 | P.PNIM_ITS ---
Progress Note: A&P Assessment and Plan (1) Strain of lumbar region: Qualifiers: Encounter type: initial encounter Qualified Code(s): S39.012A - Strain of muscle, fascia and tendon of lower back, initial encounter Code(s): S39.012A - Strain of muscle, fascia and tendon of lower back, initial encounter Status: Acute Assessment and Plan: * Ct Lumbar with severe DDD * Pain control * PT/OT * Steroids * Will be following up with pain management clinic for his chronic adrienne pain * Lidocaine patch * Neurosurgery rec conservative therapy not a candidate for surgery at this time (2) Acute exacerbation of chronic low back pain: Code(s): M54.50 - Low back pain, unspecified; G89.29 - Other chronic pain Status: Acute Assessment and Plan: * SEE ABOVE (3) ESRD on hemodialysis: Code(s): N18.6 - End stage renal disease; Z99.2 - Dependence on renal dialysis Status: Acute Assessment and Plan: * Nephrology consulted * Dialysis MWF * monitor electrolytes replenish as needed (4) Anemia of chronic disease: Code(s): D63.8 - Anemia in other chronic diseases classified elsewhere Status: Acute Assessment and Plan: * Secondary to ESRD * Hgb stable * CBC daily (5) Morbid obesity with BMI of 40.0-44.9, adult: Code(s): E66.01 - Morbid (severe) obesity due to excess calories; Z68.41 - Body mass index [BMI] 40.0-44.9, adult Status: Acute Assessment and Plan: Obesity * encourage increased on physical activity and lifestyle modifications * BMI 40.5. * Diet exercise counseling done. * consult to dietitian Plan Code status: Full code per patient DVT prophylaxis: Heparin Stress ulcer prophylaxis: Protonix 40 daily PT/OT notes: PT/OT pending Disposition: Patient continues admission on the medical unit for further pain control due to acute on chronic back pain PT OT pending patient to follow-up with pain specialist following discharge, currently waiting on SNF for discharge for continued rehab. Time Spent With Patient Time with patient: 15 - 25 minutes Subjective Date/time seen: 07/30/24 09:46 Interval history: Admission: Medical Chart THIS IS A 68-YEAR-OLD MALE WITH PAST MEDICAL HISTORY SIGNIFICANT FOR MORBID OBESITY, END-STAGE RENAL DISEASE ON HEMODIALYSIS, GOUT, ANEMIA OF CHRONIC DISEASE, CHRONIC BACK PAIN. PATIENT PRESENTS TO THE EMERGENCY ROOM DUE TO INTRACTABLE BACK PAIN WITH RADIATION TO THE TOES THROUGH HIS HEALTH BACK OF THE THIGH AND CALF PAIN WITH AMBULATION, PAIN WITH MOVEMENT, ONLY PAIN MEDICATION AND LAYING IN BED RELIEVES THE PAIN PATIENT HAS HAD TAXING EFFORT DOING HIS ADLS DUE TO THE PAIN. 07/29/2024: Assumed Care Patient seen in dialysis do mildly better but has severe pain with any movement. Patient stated the pain started after he helped his out the bath tub. Patient with chronic back pain was seen at the pain specialist who sent him to the ER for immediate pain control stated he was unable to ambulate in their office but
--- NOTE | 2024-07-30 09:46 | PM.IMPN ---
Progress Note: A&P Assessment and Plan (1) Strain of lumbar region: Qualifiers: Encounter type: initial encounter Qualified Code(s): S39.012A - Strain of muscle, fascia and tendon of lower back, initial encounter Code(s): S39.012A - Strain of muscle, fascia and tendon of lower back, initial encounter Status: Acute Assessment and Plan: Ct Lumbar with severe DDD Pain control PT/OT Steroids Will be following up with pain management clinic for his chronic adrienne pain Lidocaine patch Neurosurgery rec conservative therapy not a candidate for surgery at this time (2) Acute exacerbation of chronic low back pain: Code(s): M54.50 - Low back pain, unspecified; G89.29 - Other chronic pain Status: Acute Assessment and Plan: SEE ABOVE (3) ESRD on hemodialysis: Code(s): N18.6 - End stage renal disease; Z99.2 - Dependence on renal dialysis Status: Acute Assessment and Plan: Nephrology consulted Dialysis MWF monitor electrolytes replenish as needed (4) Anemia of chronic disease: Code(s): D63.8 - Anemia in other chronic diseases classified elsewhere Status: Acute Assessment and Plan: Secondary to ESRD Hgb stable CBC daily (5) Morbid obesity with BMI of 40.0-44.9, adult: Code(s): E66.01 - Morbid (severe) obesity due to excess calories; Z68.41 - Body mass index [BMI] 40.0-44.9, adult Status: Acute Assessment and Plan: Obesity encourage increased on physical activity and lifestyle modifications BMI 40.5. Diet exercise counseling done. consult to dietitian Plan Code status: Full code per patient DVT prophylaxis: Heparin Stress ulcer prophylaxis: Protonix 40 daily PT/OT notes: PT/OT pending Disposition: Patient continues admission on the medical unit for further pain control due to acute on chronic back pain PT OT pending patient to follow-up with pain specialist following discharge, currently waiting on SNF for discharge for continued rehab. Time Spent With Patient Time with patient: 15 - 25 minutes Subjective Date/time seen: 07/30/24 09:46 Interval history: Admission: Medical Chart THIS IS A 68-YEAR-OLD MALE WITH PAST MEDICAL HISTORY SIGNIFICANT FOR MORBID OBESITY, END-STAGE RENAL DISEASE ON HEMODIALYSIS, GOUT, ANEMIA OF CHRONIC DISEASE, CHRONIC BACK PAIN. PATIENT PRESENTS TO THE EMERGENCY ROOM DUE TO INTRACTABLE BACK PAIN WITH RADIATION TO THE TOES THROUGH HIS HEALTH BACK OF THE THIGH AND CALF PAIN WITH AMBULATION, PAIN WITH MOVEMENT, ONLY PAIN MEDICATION AND LAYING IN BED RELIEVES THE PAIN PATIENT HAS HAD TAXING EFFORT DOING HIS ADLS DUE TO THE PAIN. 07/29/2024: Assumed Care Patient seen in dialysis do mildly better but has severe pain with any movement. Patient stated the pain started after he helped his out the bath tub. Patient with chronic back pain was seen at the pain specialist who sent him to the ER for immediate pain control stated he was unable to ambulate in their office but can follow-up after discharge. PT/OT pending. 07/30/24: Patient reports overall improvement to back pain, currently waiting on SNF for rehab he will also follow with Neurosurgery and Pain Management [facility]. Review of Systems Review of Systems: All systems reviewed & are unremarkable except as noted in HPI and below Exam Narrative: Physical Exam: GENERAL: Alert and oriented x 3. No acute distress. EYES: EOMI. No scleral icterus. PERRLA. nystagmus HEENT: Moist mucous membranes. LUNGS: Clear to auscultation bilaterally. No accessory muscle use. CARDIOVASCULAR: Regular rate and rhythm. No murmur. No JVD. S1-S2 ABDOMEN: Soft, non tenderness and non-distended. No palpable masses. EXTREMITIES: No edema. Pain with movement BLE but improving SKIN: No rashes or lesions. Skin warm, dry. NEUROLOGIC: No focal neurological deficits. CN II-XII g
[2024-07-30 11:19] LABS: Glucose Point of Care 174 mg/dl (65-105)
--- NOTE | 2024-07-30 13:47 | PM.PNNEP ---
Progress Note: A&P Assessment and Plan (1) End stage renal disease: Code(s): N18.6 - End stage renal disease Status: Chronic Assessment and Plan: HD today continue outpatient schedule of Sat/Sat/Fridays follow electrolytes, volume status, and clearance known to require 4.5 hour treatments to achieve adequate Kt/V and clearance (2) Hyperkalemia: Code(s): E87.5 - Hyperkalemia Status: Acute Assessment and Plan: due to ESRD adjust dialysis bath to compensate lokelma PRN follow K+ levels (3) Bacteremia: Code(s): R78.81 - Bacteremia Status: Acute Assessment and Plan: as noted by blood cultures contamination? no systemic signs of infection HOWEVER, he is a high risk since he does have a HD catheter follow repeat blood cultures (4) Low back pain: Code(s): M54.50 - Low back pain, unspecified Status: Acute Assessment and Plan: acute on chronic issues CT of lumbar spine findings noted -- no acute findings continue pain control PT/OT as tolerated Neurosurgery consulted for further recommendations possible benefit from acute rehab on discharge(?) (5) Hypertension: Code(s): I10 - Essential (primary) hypertension Status: Chronic Assessment and Plan: despite history, reasonable control with minimal medications suspect pain medication indirectly helping as well follow trend of hemodynamics (6) Anemia: Code(s): D64.9 - Anemia, unspecified Status: Chronic Assessment and Plan: due to ESRD H/H at goal AYALA with HD as needed follow H/H (7) Diabetes: Code(s): E11.9 - Type 2 diabetes mellitus without complications Status: Chronic Assessment and Plan: follow accu-cheks glycemic control per hospitalists Will continue to follow. Subjective Date/time seen: 07/30/24 13:47 Interval history: Follow-up for end stage renal disease on hemodialysis. Tolerated dialysis treatment yesterday without any issues or problems; reports significant improvement in back pain in comparison to admission; Neurosurgery recommendations noted; no apparent distress noted at the time of my visit; no events overnight or earlier this AM. Exam Narrative: General: elderly but WD/WN Caucsian male in NAD Heart: normal S1 and S2; no rub Lungs: clear to auscultation Abdomen: soft, nontender, nondistended, positive bowel sounds Extremities: no cyanosis or clubbing; no edema Skin: warm and dry Objective Data Vital Signs Vital Signs: Vital Signs Temp Pulse Resp BP Pulse Ox O2 Del Method 07/30/24 10:20 97.0 F L 64 16 135/47 L 97 Room Air 07/30/24 05:57 97.7 F 61 16 130/65 99 07/29/24 21:16 98.2 F 64 20 137/58 L 94 Intake/Output Intake/Output: Intake & Output 07/27/24 07/28/24 07/29/24 07/30/24 23:59 23:59 23:59 23:59 Intake Total 1440 540 Output Total 1999 Balance -560 540 Meds/Results Medications: Active Medications Generic Name Dose Route Start Last Admin Trade Name Freq PRN Reason Stop Dose Admin Acetaminophen 1,000 mg 07/28/24 20:01 Acetaminophen 500 Mg Tablet PO Q6H PRN Mild Pain (1-3) or Fever Hydrocodone Bitart/Acetaminophen 1 tab 07/29/24 05:27 07/30/24 02:25 Hydrocodone/Acetaminophen (*Crx) 10-325 Mg Tablet PO 1 tab Q6H PRN Administration Pain Rated 4-6 Albuterol 2 puff 07/29/24 05:27 Albuterol Sulfate (*Sp) Aerosol 1 Puff INHALATION Q4HRT PRN shortness of breath/wheezing Allopurinol 300 mg 07/29/24 09:00 07/30/24 09:20 Allopurinol 300 Mg Tablet PO 300 mg DAILY KYAW Administration Apixaban 5 mg 07/29/24 09:00 07/30/24 09:21 Apixaban 5 Mg Tablet PO 5 mg Q12HR KYAW Administration Atorvastatin Calcium 40 mg 07/29/24 09:00 07/30/24 09:21 Atorvastatin 40 Mg Tablet PO 40 mg DAILY KYAW Administration Dexamethasone Sodium Phosphate
--- NOTE | 2024-07-30 13:47 | P.PNNP_ITS ---
Progress Note: A&P Assessment and Plan (1) End stage renal disease: Code(s): N18.6 - End stage renal disease Status: Chronic Assessment and Plan: * HD today * continue outpatient schedule of Sat/Sat/Fridays * follow electrolytes, volume status, and clearance * known to require 4.5 hour treatments to achieve adequate Kt/V and clearance (2) Hyperkalemia: Code(s): E87.5 - Hyperkalemia Status: Acute Assessment and Plan: * due to ESRD * adjust dialysis bath to compensate * lokelma PRN * follow K+ levels (3) Bacteremia: Code(s): R78.81 - Bacteremia Status: Acute Assessment and Plan: * as noted by blood cultures * contamination? * no systemic signs of infection * HOWEVER, he is a high risk since he does have a HD catheter * follow repeat blood cultures (4) Low back pain: Code(s): M54.50 - Low back pain, unspecified Status: Acute Assessment and Plan: * acute on chronic issues * CT of lumbar spine findings noted -- no acute findings * continue pain control * PT/OT as tolerated * Neurosurgery consulted for further recommendations * possible benefit from acute rehab on discharge(?) (5) Hypertension: Code(s): I10 - Essential (primary) hypertension Status: Chronic Assessment and Plan: * despite history, reasonable control with minimal medications * suspect pain medication indirectly helping as well * follow trend of hemodynamics (6) Anemia: Code(s): D64.9 - Anemia, unspecified Status: Chronic Assessment and Plan: * due to ESRD * H/H at goal * AYALA with HD as needed * follow H/H (7) Diabetes: Code(s): E11.9 - Type 2 diabetes mellitus without complications Status: Chronic Assessment and Plan: * follow accu-cheks * glycemic control per hospitalists Will continue to follow. Subjective Date/time seen: 07/30/24 13:47 Interval history: Follow-up for end stage renal disease on hemodialysis. Tolerated dialysis treatment yesterday without any issues or problems; reports significant improvement in back pain in comparison to admission; Neurosurgery recommendations noted; no apparent distress noted at the time of my visit; no events overnight or earlier this AM. Exam Narrative: General: elderly but WD/WN Caucsian male in NAD Heart: normal S1 and S2; no rub Lungs: clear to auscultation Abdomen: soft, nontender, nondistended, positive bowel sounds Extremities: no cyanosis or clubbing; no edema Skin: warm and dry Objective Data Vital Signs Vital Signs: Vital Signs Temp Pulse Resp BP Pulse Ox O2 Del Method 07/30/24 10:20 97.0 F L 64 16 135/47 L 97 Room Air 07/30/24 05:57 97.7 F 61 16 130/65 99 07/29/24 21:16 98.2 F 64 20 137/58 L 94 Intake/Output Intake/Output: Intake & Output 07/27/24 07/28/24 07/29/24 07/30/24 23:59 23:59 23:59 23:59 Intake Total 1440 540 Output Total 2000 Balance -560 540 Meds/Results Medications: Active Medications Generic Name Dose Route Start Last Admin Trade Name Freq PRN Reason Stop Dose Admin Acetaminophen 1,000 mg 07/28/24 20:01
[2024-07-30 14:00] VITALS: BP 135/47; PULSE 64; RESP 16; TEMP 36.1; O2SAT 97
[2024-07-30 16:23] LABS: Glucose Point of Care 251 mg/dl (65-105)
[2024-07-30 20:09] LABS: Glucose Point of Care 201 mg/dl (65-105)
[2024-07-30 20:17] VITALS: BP 155/72; PULSE 61; RESP 18; TEMP 36.6; O2SAT 98
[2024-07-30] MEDS: traZODone HCL 50 MG TABLET PO (22:00)
[2024-07-31] VITALS (24 sets, daily range): BP systolic 112–190; BP diastolic 39–70; PULSE 42–65; RESP 16–18; TEMP 36.3–37; O2SAT 94–100
[2024-07-31] MEDS: dexAMETHasone SOD PHOS INJ 10 MG/ML 1 ML VIAL IV PUSH ×3 (00:51→13:29)
[2024-07-31] MEDS: LEVOTHYROXINE SODIUM 25 MCG TABLET PO (06:25)
[2024-07-31] MEDS: HYDROcodone/acetaminophen (*CRX) 10-325 MG TABLET 1 TAB PO (06:26)
[2024-07-31 07:25] LABS: Hematocrit 35.6 % (42.0-52.0); Hemoglobin 11.3 g/dL (14.0-18.0); Mean Corpuscular HGB Conc 31.7 g/dl (32-36); Mean Corpuscular Hemoglobin 34.1 pg (26-34); Mean Corpuscular Volume 107.6 fl (80-100); Mean Platelet Volume 12.4 fl (7.4-10.4); Platelet Count Result 194 k/mm3 (150-375); Red Blood Count 3.31 M/mm3 (4.6-6.20); Red Cell Distribution Width 14.9 % (11.5-14.5); White Blood Count 11.3 K/mm3 (4.5-10.0)
[2024-07-31 07:56] LABS: Glucose Point of Care 174 mg/dl (65-105)
--- NOTE | 2024-07-31 08:23 | PCPTNOTE ---
The patient treatment was not able to be completed due to patient out of room for dialysis. Will plan to continue treatment per plan of care.
--- NOTE | 2024-07-31 08:35 | PCOTNOTE ---
Patient out of the room at this time. Patient is in dialysis.
[2024-07-31 08:38] LABS: Alanine Aminotransferase 12 U/L (6-50); Albumin Level 3.5 g/dL (3.5-5.1); Alkaline Phosphatase 84 U/L (38-126); Anion Gap 19 mmol/L (4-12); Aspartate Amino Transferase 16 U/L (17-59); Bilirubin,Total 1.2 mg/dL (0.2-1.3); Blood Urea Nitrogen 115 mg/dL (9-20); Calcium 8.4 mg/dL (8.4-10.2); Carbon Dioxide 24 mmol/L (22-30); Chloride 88 mmol/L (98-107); Estimated CRCL calculation 9 ml/min; Estimated Glomerular Filt Rate 5; Glucose 184 mg/dL (65-110); Magnesium 2.1 mg/dL (1.6-2.3); Potassium 6.1 mmol/L (3.4-5.0); Sodium 131 mmol/L (137-145)
--- NOTE | 2024-07-31 11:05 | P.PNNP_ITS ---
Progress Note: A&P Assessment and Plan (1) End stage renal disease: Code(s): N18.6 - End stage renal disease Status: Chronic Assessment and Plan: * HD today * continue outpatient schedule of Sat/Sat/Fridays * follow electrolytes, volume status, and clearance * known to require 4.5 hour treatments to achieve adequate Kt/V and clearance (2) Hyperkalemia: Code(s): E87.5 - Hyperkalemia Status: Acute Assessment and Plan: * due to ESRD * adjust dialysis bath to compensate * lokelma PRN * follow K+ levels (3) Bacteremia: Code(s): R78.81 - Bacteremia Status: Acute Assessment and Plan: * as noted by blood cultures - Staph epidermis * contamination? * no systemic signs of infection * HOWEVER, he is a high risk since he does have a HD catheter * repeat blood cultures so far negative to date (4) Low back pain: Code(s): M54.50 - Low back pain, unspecified Status: Acute Assessment and Plan: * acute on chronic issues * CT of lumbar spine findings noted -- no acute findings * continue pain control * PT/OT as tolerated * Neurosurgery consulted for further recommendations * possible benefit from acute rehab on discharge(?) (5) Hypertension: Code(s): I10 - Essential (primary) hypertension Status: Chronic Assessment and Plan: * despite history, reasonable control with minimal medications * suspect pain medication indirectly helping as well * follow trend of hemodynamics (6) Anemia: Code(s): D64.9 - Anemia, unspecified Status: Chronic Assessment and Plan: * due to ESRD * H/H at goal * AYALA with HD as needed * follow H/H (7) Diabetes: Code(s): E11.9 - Type 2 diabetes mellitus without complications Status: Chronic Assessment and Plan: * follow accu-cheks * glycemic control per hospitalists Will continue to follow. Subjective Date/time seen: 07/31/24 11:05 Interval history: Follow-up for end stage renal disease on hemodialysis. Tolerating dialysis treatment at the time of my visit (seen on HD at 10:55AM); no apparent distress noted; pain control seem adequate at this time and working with PT/OT as tolerated; no issues/events overnight or earlier this morning. Exam Narrative: General: elderly but WD/WN Caucsian male in NAD Heart: normal S1 and S2; no rub Lungs: clear to auscultation Abdomen: soft, nontender, nondistended, positive bowel sounds Extremities: no cyanosis or clubbing; no edema Skin: warm and intact Objective Data Vital Signs Vital Signs: Vital Signs Temp Pulse Resp BP Pulse Ox O2 Del Method 07/31/24 10:45 55 L 130/66 07/31/24 10:15 65 122/58 L 07/31/24 10:00 57 L 150/64 H 07/31/24 10:30 55 L 137/59 L 07/31/24 09:45 60 152/65 H 07/31/24 09:15 56 L 120/63 07/31/24 08:45 56 L 140/62 07/31/24 08:30 57 L 147/65 H 07/31/24 09:30 57 L 116/39 L 07/31/24 09:00 57 L 134/39 L 07/31/24 08:19 55 L 139/49 L 07/31/24 08:05 97.7 F 58 L 18 127/41 L 94 07/31/24 05:59 97.8 F 65 16 129/60 98 07/30/24 20:17 98 F 61 18 155/72 H 98 Intake/Output Intake/Output:
--- NOTE | 2024-07-31 11:05 | PM.PNNEP ---
Progress Note: A&P Assessment and Plan (1) End stage renal disease: Code(s): N18.6 - End stage renal disease Status: Chronic Assessment and Plan: HD today continue outpatient schedule of Sat/Sat/Fridays follow electrolytes, volume status, and clearance known to require 4.5 hour treatments to achieve adequate Kt/V and clearance (2) Hyperkalemia: Code(s): E87.5 - Hyperkalemia Status: Acute Assessment and Plan: due to ESRD adjust dialysis bath to compensate lokelma PRN follow K+ levels (3) Bacteremia: Code(s): R78.81 - Bacteremia Status: Acute Assessment and Plan: as noted by blood cultures - Staph epidermis contamination? no systemic signs of infection HOWEVER, he is a high risk since he does have a HD catheter repeat blood cultures so far negative to date (4) Low back pain: Code(s): M54.50 - Low back pain, unspecified Status: Acute Assessment and Plan: acute on chronic issues CT of lumbar spine findings noted -- no acute findings continue pain control PT/OT as tolerated Neurosurgery consulted for further recommendations possible benefit from acute rehab on discharge(?) (5) Hypertension: Code(s): I10 - Essential (primary) hypertension Status: Chronic Assessment and Plan: despite history, reasonable control with minimal medications suspect pain medication indirectly helping as well follow trend of hemodynamics (6) Anemia: Code(s): D64.9 - Anemia, unspecified Status: Chronic Assessment and Plan: due to ESRD H/H at goal AYALA with HD as needed follow H/H (7) Diabetes: Code(s): E11.9 - Type 2 diabetes mellitus without complications Status: Chronic Assessment and Plan: follow accu-cheks glycemic control per hospitalists Will continue to follow. Subjective Date/time seen: 07/31/24 11:05 Interval history: Follow-up for end stage renal disease on hemodialysis. Tolerating dialysis treatment at the time of my visit (seen on HD at 10:55AM); no apparent distress noted; pain control seem adequate at this time and working with PT/OT as tolerated; no issues/events overnight or earlier this morning. Exam Narrative: General: elderly but WD/WN Caucsian male in NAD Heart: normal S1 and S2; no rub Lungs: clear to auscultation Abdomen: soft, nontender, nondistended, positive bowel sounds Extremities: no cyanosis or clubbing; no edema Skin: warm and intact Objective Data Vital Signs Vital Signs: Vital Signs Temp Pulse Resp BP Pulse Ox O2 Del Method 07/31/24 10:45 55 L 130/66 07/31/24 10:15 65 122/58 L 07/31/24 10:00 57 L 150/64 H 07/31/24 10:30 55 L 137/59 L 07/31/24 09:45 60 152/65 H 07/31/24 09:15 56 L 120/63 07/31/24 08:45 56 L 140/62 07/31/24 08:30 57 L 147/65 H 07/31/24 09:30 57 L 116/39 L 07/31/24 09:00 57 L 134/39 L 07/31/24 08:19 55 L 139/49 L 07/31/24 08:05 97.7 F 58 L 18 127/41 L 94 07/31/24 05:59 97.8 F 65 16 129/60 98 07/30/24 20:17 98 F 61 18 155/72 H 98 Intake/Output Intake/Output: Intake & Output 07/28/24 07/29/24 07/30/24 07/31/24 23:59 23:59 23:59 23:59 Intake Total 1440 1284 1284 Output Total 1999 3016 Balance -560 1284 -1732 Meds/Results Medications: Medications: Active Medications Generic Name Dose Route Start Last Admin Trade Name Freq PRN Reason Stop Dose Admin Acetaminophen 1,000 mg 07/28/24 20:01 Acetaminophen 500 Mg Tablet PO Q6H PRN Mild Pain (1-3) or Fever Hydrocodone Bitart/Acetaminophen 1 tab 07/29/24 05:27 07/31/24 06:26 Hydrocodone/Acetaminophen (*Crx) 10-325 Mg Tablet PO Q6H PRN Pain Rated 4-6 1 tab Albuterol 2 puff 07/29/24 05:27 Albuterol Sulfate (*Sp) Aerosol 1 Puff INHALATION Q4HRT PRN shortness of breath/wheezing Allopurinol
[2024-07-31 11:22] LABS: Glucose Point of Care 147 mg/dl (65-105)
--- NOTE | 2024-07-31 11:28 | PM.IMPN ---
Progress Note: A&P Assessment and Plan (1) Strain of lumbar region: Qualifiers: Encounter type: initial encounter Qualified Code(s): S39.012A - Strain of muscle, fascia and tendon of lower back, initial encounter Code(s): S39.012A - Strain of muscle, fascia and tendon of lower back, initial encounter Status: Acute Assessment and Plan: Ct Lumbar with severe DDD Pain control PT/OT Steroids Will be following up with pain management clinic for his chronic adrienne pain Lidocaine patch Neurosurgery rec conservative therapy not a candidate for surgery at this time (2) Acute exacerbation of chronic low back pain: Code(s): M54.50 - Low back pain, unspecified; G89.29 - Other chronic pain Status: Acute Assessment and Plan: SEE ABOVE (3) ESRD on hemodialysis: Code(s): N18.6 - End stage renal disease; Z99.2 - Dependence on renal dialysis Status: Acute Assessment and Plan: Nephrology consulted Dialysis MWF monitor electrolytes replenish as needed (4) Anemia of chronic disease: Code(s): D63.8 - Anemia in other chronic diseases classified elsewhere Status: Acute Assessment and Plan: Secondary to ESRD Hgb stable CBC daily (5) Morbid obesity with BMI of 40.0-44.9, adult: Code(s): E66.01 - Morbid (severe) obesity due to excess calories; Z68.41 - Body mass index [BMI] 40.0-44.9, adult Status: Acute Assessment and Plan: Obesity encourage increased on physical activity and lifestyle modifications BMI 40.5. Diet exercise counseling done. consult to dietitian Plan Code status: Full code per patient DVT prophylaxis: Heparin Stress ulcer prophylaxis: Protonix 40 daily PT/OT notes: PT/OT pending Disposition: Patient continues admission on the medical unit for further pain control due to acute on chronic back pain PT OT pending patient to follow-up with pain specialist following discharge, currently waiting on SNF for discharge for continued rehab. Time Spent With Patient Time with patient: 15 - 25 minutes Subjective Date/time seen: 07/31/24 11:28 Interval history: Admission: Medical Chart THIS IS A 68-YEAR-OLD MALE WITH PAST MEDICAL HISTORY SIGNIFICANT FOR MORBID OBESITY, END-STAGE RENAL DISEASE ON HEMODIALYSIS, GOUT, ANEMIA OF CHRONIC DISEASE, CHRONIC BACK PAIN. PATIENT PRESENTS TO THE EMERGENCY ROOM DUE TO INTRACTABLE BACK PAIN WITH RADIATION TO THE TOES THROUGH HIS HEALTH BACK OF THE THIGH AND CALF PAIN WITH AMBULATION, PAIN WITH MOVEMENT, ONLY PAIN MEDICATION AND LAYING IN BED RELIEVES THE PAIN PATIENT HAS HAD TAXING EFFORT DOING HIS ADLS DUE TO THE PAIN. 07/29/2024: Assumed Care Patient seen in dialysis do mildly better but has severe pain with any movement. Patient stated the pain started after he helped his out the bath tub. Patient with chronic back pain was seen at the pain specialist who sent him to the ER for immediate pain control stated he was unable to ambulate in their office but can follow-up after discharge. PT/OT pending. 07/30/24: Patient reports overall improvement to back pain, currently waiting on SNF for rehab he will also follow with Neurosurgery [facility]. 07/31/24: Patient seen in dialysis back pain improving, K+ 6.1 but should correct with dialysis. Currently just waiting on insurance auth for SNF/Rehab Review of Systems Review of Systems: lower back pain with radiation down the R leg, shooting down to his toes, worse with movement All systems reviewed & are unremarkable except as noted in HPI and below Exam Narrative: Physical Exam: GENERAL: Alert and oriented x 3. No acute distress. EYES: EOMI. No scleral icterus. PERRLA. nystagmus HEENT: Moist mucous membranes. LUNGS: Clear to auscultation bilaterally. No accessory muscle use. CARDIOVASCULAR: Regular rate and rhythm. N
[2024-07-31] MEDS: EPOETIN ALFA-EPBX 4,000 UNITS/ML VIAL 4000 UNITS IV PUSH (12:32)
[2024-07-31] MEDS: HEPARIN SODIUM 1,000 UNITS/ML VIAL 10000 UNITS (12:32)
[2024-07-31] MEDS: HEPARIN SODIUM 1,000 UNITS/ML VIAL 3000 UNITS (12:34)
[2024-07-31] MEDS: SEVELAMER CARBONATE 800 MG TABLET PO (13:29)
[2024-07-31] MEDS: methocarbamoL 750 MG TABLET PO (13:30)
--- NOTE | 2024-07-31 14:56 | P.DS_ITS ---
DS: Admitting Diagnosis Discharge Date 07/31/2024 Admitting Diagnosis Low back strain/ESRD DS: Discharge Diagnosis Discharge Diagnosis (1) Strain of lumbar region: Qualifiers: Encounter type: initial encounter Qualified Code(s): S39.012A - Strain of muscle, fascia and tendon of lower back, initial encounter Code(s): S39.012A - Strain of muscle, fascia and tendon of lower back, initial encounter Status: Acute Assessment and Plan: * Ct Lumbar with severe DDD * Pain control * PT/OT * Steroids * Will be following up with pain management clinic for his chronic adrienne pain * Lidocaine patch * Neurosurgery rec conservative therapy not a candidate for surgery at this time (2) Acute exacerbation of chronic low back pain: Code(s): M54.50 - Low back pain, unspecified; G89.29 - Other chronic pain Status: Acute Assessment and Plan: * SEE ABOVE (3) ESRD on hemodialysis: Code(s): N18.6 - End stage renal disease; Z99.2 - Dependence on renal dialysis Status: Acute Assessment and Plan: * Nephrology consulted * Dialysis [facility] * monitor electrolytes replenish as needed (4) Anemia of chronic disease: Code(s): D63.8 - Anemia in other chronic diseases classified elsewhere Status: Acute Assessment and Plan: * Secondary to ESRD * Hgb stable * CBC daily (5) Morbid obesity with BMI of 40.0-44.9, adult: Code(s): E66.01 - Morbid (severe) obesity due to excess calories; Z68.41 - Body mass index [BMI] 40.0-44.9, adult Status: Acute Assessment and Plan: Obesity * encourage increased on physical activity and lifestyle modifications * BMI 40.5. * Diet exercise counseling done. * consult to dietitian Plan Disposition: Patient discharged to home with outpatient physical therapy will follow-up with pain management clinic and neurosurgery. DS: Summary Hospital Course Reason for hospitalization: Lower back strain Hospital Course: Admission: Medical Chart THIS IS A 68-YEAR-OLD MALE WITH PAST MEDICAL HISTORY SIGNIFICANT FOR MORBID OBESITY, END-STAGE RENAL DISEASE ON HEMODIALYSIS, GOUT, ANEMIA OF CHRONIC DISEASE, CHRONIC BACK PAIN. PATIENT PRESENTS TO THE EMERGENCY ROOM DUE TO INTRACTABLE BACK PAIN WITH RADIATION TO THE TOES THROUGH HIS HEALTH BACK OF THE THIGH AND CALF PAIN WITH AMBULATION, PAIN WITH MOVEMENT, ONLY PAIN MEDICATION AND LAYING IN BED RELIEVES THE PAIN PATIENT HAS HAD TAXING EFFORT DOING HIS ADLS DUE TO THE PAIN. 07/29/2024: Assumed Care Patient seen in dialysis do mildly better but has severe pain with any movement. Patient stated the pain started after he helped his out the bath tub. Patient with chronic back pain was seen at the pain specialist who sent him to the ER for immediate pain control stated he was unable to ambulate in their office but can follow-up after discharge. PT/OT pending. 07/30/24: Patient reports overall improvement to back pain, currently waiting on SNF for rehab he will also follow wi
--- NOTE | 2024-07-31 14:56 | PM.DS ---
DS: Admitting Diagnosis Discharge Date 07/31/2024 Admitting Diagnosis Low back strain/ESRD DS: Discharge Diagnosis Discharge Diagnosis (1) Strain of lumbar region: Qualifiers: Encounter type: initial encounter Qualified Code(s): S39.012A - Strain of muscle, fascia and tendon of lower back, initial encounter Code(s): S39.012A - Strain of muscle, fascia and tendon of lower back, initial encounter Status: Acute Assessment and Plan: Ct Lumbar with severe DDD Pain control PT/OT Steroids Will be following up with pain management clinic for his chronic adrienne pain Lidocaine patch Neurosurgery rec conservative therapy not a candidate for surgery at this time (2) Acute exacerbation of chronic low back pain: Code(s): M54.50 - Low back pain, unspecified; G89.29 - Other chronic pain Status: Acute Assessment and Plan: SEE ABOVE (3) ESRD on hemodialysis: Code(s): N18.6 - End stage renal disease; Z99.2 - Dependence on renal dialysis Status: Acute Assessment and Plan: Nephrology consulted Dialysis MWF monitor electrolytes replenish as needed (4) Anemia of chronic disease: Code(s): D63.8 - Anemia in other chronic diseases classified elsewhere Status: Acute Assessment and Plan: Secondary to ESRD Hgb stable CBC daily (5) Morbid obesity with BMI of 40.0-44.9, adult: Code(s): E66.01 - Morbid (severe) obesity due to excess calories; Z68.41 - Body mass index [BMI] 40.0-44.9, adult Status: Acute Assessment and Plan: Obesity encourage increased on physical activity and lifestyle modifications BMI 40.5. Diet exercise counseling done. consult to dietitian Plan Disposition: Patient discharged to home with outpatient physical therapy will follow-up with pain management clinic and neurosurgery. DS: Summary Hospital Course Reason for hospitalization: Lower back strain Hospital Course: Admission: Medical Chart THIS IS A 68-YEAR-OLD MALE WITH PAST MEDICAL HISTORY SIGNIFICANT FOR MORBID OBESITY, END-STAGE RENAL DISEASE ON HEMODIALYSIS, GOUT, ANEMIA OF CHRONIC DISEASE, CHRONIC BACK PAIN. PATIENT PRESENTS TO THE EMERGENCY ROOM DUE TO INTRACTABLE BACK PAIN WITH RADIATION TO THE TOES THROUGH HIS HEALTH BACK OF THE THIGH AND CALF PAIN WITH AMBULATION, PAIN WITH MOVEMENT, ONLY PAIN MEDICATION AND LAYING IN BED RELIEVES THE PAIN PATIENT HAS HAD TAXING EFFORT DOING HIS ADLS DUE TO THE PAIN. 07/29/2024: Assumed Care Patient seen in dialysis do mildly better but has severe pain with any movement. Patient stated the pain started after he helped his out the bath tub. Patient with chronic back pain was seen at the pain specialist who sent him to the ER for immediate pain control stated he was unable to ambulate in their office but can follow-up after discharge. PT/OT pending. 07/30/24: Patient reports overall improvement to back pain, currently waiting on SNF for rehab he will also follow with [facility]surgery [facility]. 07/31/24: Patient seen in dialysis back pain improving, K+ 6.1 but should correct with dialysis. Currently just waiting on insurance auth for SNF/Rehab DISCHARGED Patient was denied inpatient rehab do to overall improvement with pain and mobility he agreed he would rather do outpatient physical therapy and be discharged to home. He was provided an order for PT as well as one for follow-up BMP to be drawn at next dialysis appointment to re-check K+. Patient in no acute distress prior to discharge and felt overall close to his baseline. Status at Discharge Functional status at discharge: independent ambulation Overall status at discharge: patient is progressing back to baseline Time Spent with Patient Time attestation: Total time spent providing and/or coordinating discharge services: Time spent: Greater than 30 minutes Exam Narrati
--- NOTE | 2024-07-31 15:58 | PC.NURSE ---
blood culture results called to provider. continue with discharge.
== END 2024-07-31 16:05 | disposition home or self-care (01) | DRG 562 ==
LOC: ANHED 20:12 → ANH3MEDSUR 20:47
PROVIDERS: Internal Medicine; Internal Medicine Nephrology; Admitting Provider Internal Medicine; Emergency Provider Physician Assistant; PCP Internal Medicine; Visit Provider Nurse Practitioner Family
DX: S39.012A Strain of muscle, fascia and tendon of lower back, initial encounter (principal); N18.6 End stage renal disease; I13.2 Hypertensive heart and chronic kidney disease with heart failure and with stage 5 chronic kidney disease, or end stage renal disease; I48.20 Chronic atrial fibrillation, unspecified; Z68.41 Body mass index [BMI] 40.0-44.9, adult; R78.81 Bacteremia; I50.9 Heart failure, unspecified; D63.8 Anemia in other chronic diseases classified elsewhere; E87.5 Hyperkalemia; E66.01 Morbid (severe) obesity due to excess calories; G89.29 Other chronic pain; Z99.2 Dependence on renal dialysis; Z79.01 Long term (current) use of anticoagulants; Z87.891 Personal history of nicotine dependence; Z95.1 Presence of aortocoronary bypass graft
CPT/HCPCS: 36415; 71045; 72131; 80053; 82607; 82746; 82948; 83735; 84100; 85025; 85027; 86706; 87040; 87077; 87181; 87340; 87641; 96374; 96375; 96376; 97110; 97116; 97161; 97165; 97530; 97535; 99285; A9270; G0257; G0378; J1100; J1170; J1644; J1815; J2919; J7030; Q5105

== ENCOUNTER 2024-08-01 09:19 | Inpatient (IN) | payer MEDICARE, SELFPAY ==
[2024-08-01] VITALS (13 sets, daily range): BP systolic 90–142; BP diastolic 51–77; PULSE 49–65; RESP 12–24; TEMP 35.7–37.2; O2SAT 93–99; BMI 41.3
--- NOTE | 2024-08-01 | ECHO_ITS ---
Patient Info Name: Yobany Garner Age: 68 years : 1955 Gender: Male Ht: 71 in Wt: 290 lbs BSA: 2.62 m2 HR: 66 bpm Heart Rhythm: Sinus Rhythm Technical Quality: Poor Exam Date: 08/01/2024 1:54 PM Exam Location: Echo Lab Patient Status: Outpatient Admit Date: 08/01/2024 Staff Ordering Physician: Katie Landaverde APRN Bulb Inspector: Sincere Vargas RDCS Attending Provider: Katie Landaverde APRN Referring Physician: Akhil BOWMAN; Exam Type: CA echo dop color flow w con Study Info Indications - r/o endocarditis/bacteremia Complete two-dimensional, color flow and Doppler transthoracic echocardiogram is performed with contrast to opacify the left ventricle and to improve the deliniation of the left ventricle endocardial borders. Reason for Poor Study: poor echocardiographic windows Summary 1. Very technically difficult study with limited views. 2. Left ventricular chamber dimension is mildly enlarged. 3. Left ventricular systolic function is normal, estimated at 55-60%. 4. Left atrial chamber dimension is mildly enlarged. 5. Study was done to evaluate for endocarditis / bacteremia. Cannot rule out endocarditis based on this study. Consider CONCEPCIÓN if clinically indicated. Left Ventricle Left ventricular chamber dimension is mildly enlarged. Left ventricular systolic function is normal, estimated at 55-60%. Right Ventricle Linear artifact in right ventricle suggestive of catheter(s), pacemaker lead(s), or ICD lead(s). Right ventricular chamber dimension is not well visualized. Left Atria Left atrial chamber dimension is mildly enlarged. Right Atria Linear artifact in the right atrium suggestive of catheter(s), pacemaker lead(s), or ICD lead(s). Right atrial chamber dimension is not well visualized. Atrial Septum Intact interatrial septum visualized by color flow imaging. Aortic Valve The aortic valve is not well visualized. There is no aortic valve regurgitation. Pulmonic Valve The pulmonic valve is not well visualized. Mitral Valve There is trace mitral valve regurgitation. Tricuspid Valve There is trace tricuspid valve regurgitation. Pericardium/Pleural There is no pericardial effusion. Inferior Vena Cava Inferior vena cava is not well visualized. Aorta The aortic root size at the sinus of Valsalva is normal. Left Ventricular Outflow Tract Name Value Normal LVOT 2D LVOT Diameter 2.27 cm LVOT Doppler LVOT Peak Gradient 4 mmHg LVOT Mean Gradient 2 mmHg LVOT VTI 22.20 cm LVOT VTI/AV VTI Ratio 0.60 LVOT Stroke Volume 89.87 ml LVOT CO 4.89 l/min LVOT CI 1.87 L/min/m2 Pulmonic Valve Name Value Normal PV Doppler PV Peak Gradient 3 mmHg Mitral Valve
--- NOTE | ~2024-08-01 | CT_ITS ---
EXAMINATION: CT brain wo con DATE: 08/01/2024 09:48 INDICATION: Head injury TECHNIQUE: Computed tomography (CT) of the head was performed without intravenous contrast. Sagittal and coronal reconstructions were performed. The mA was adjusted according to patient size. Iterative reconstruction technique was employed. The dose-length product was 605.33 mGy-cm. COMPARISON: None FINDINGS: Small subcutaneous contusion along the lateral rim of the right orbit. No fractures. No acute intracr anial hemorrhage, acute infarction or abnormal extra axial fluid collection. Small region of encephal omalacia at the posterior left frontal lobe consistent with chronic infarct. Additional small old lac unar infarct at the left lentiform nucleus. There is mild scattered white matter hypoattenuation cons istent with chronic small vessel ischemic disease. Symmetric prominence of the sulci consistent with mild age-appropriate diffuse cerebral volume loss. Ventricles are normal and symmetric. No mass/mass effect. Changes of bilateral intraocular lens replacement. Paranasal sinuses are clear. Small right m astoid effusion. Intracranial calcified cerebral atherosclerosis is noted. IMPRESSION: 1. No fracture or acute intracranial process. 2. Small old infarcts in the left frontal lobe and left lentiform nucleus. Reviewed, dictated and finalized at location A.
--- NOTE | ~2024-08-01 | XR_ITS ---
EXAM: XR hip LT 2V w AP pelvis DATE: 08/03/2024 22:02 HISTORY: left hip pain after fall . COMPARISON: None available. FINDINGS: Lower lumbar degenerative disc disease. Mild bilateral hip osteoarthritis. Scattered pelvi c enthesopathy. Degenerative change of the pubic symphysis. Vascular stent over the left pelvis. Scat tered vascular calcifications. No fracture or dislocation. IMPRESSION: No acute osseous finding in the pelvis or left hip. Reviewed, dictated and finalized at location K.
--- NOTE | ~2024-08-01 | XR_ITS ---
EXAMINATION: XR ribs LT 2V Exam Date/Time: 08/03/2024 21:50 CDT HISTORY: left rib pain after fall Comparison: 08/01/2024. RESULT: Lines, tubes, and devices: 1 fractured sternotomy wire, in stable position. The remaining sternotomy wires are intact. Surgical clips over the mediastinum. Left chest pacer with intact leads. Right IJ dialysis catheter terminating in the right atrium. Lungs and pleura: Senescent changes, otherwise clear. Cardiothymic silhouette: Stable. Other: No acute osseous or upper abdominal finding. IMPRESSION: No acute osseous finding in the left ribs. Reviewed, dictated and finalized at location K.
--- NOTE | ~2024-08-01 | XR_ITS ---
EXAMINATION: XR chest 1V portable DATE: 08/01/2024 11:11 INDICATION: Shortness of breath TECHNIQUE: frontal view of the chest was obtained. COMPARISON: Chest radiograph dated 07/29/2024 FINDINGS: Large-bore likely tunneled dual-lumen right internal jugular central venous catheter with distal tip at the high right atrium. No airspace opacities, pulmonary edema, pleural effusion or pneumothorax. C ardiomegaly. Median sternotomy wires and mediastinal surgical clips are seen, likely from prior coron chrissie artery bypass grafting. Dual lead pacemaker with lead tips terminating near the apex of the right ventricle. There are additional surgical clips at the left axilla versus upper arm. IMPRESSION: 1. Cardiomegaly. No acute cardiopulmonary disease. Reviewed, dictated and finalized at location A.
--- NOTE | 2024-08-01 09:23 | ECG_ITS ---
Test Date: 2024-08-01 09:27:01 Measurements Intervals [place] Rate: 62 P: 37 CT: 162 QRS: 66 QRSD: 126 T: 168 QT: 476 QTc: 486 Interpretive Statements SINUS RHYTHM WITH SINUS ARRHYTHMIA RIGHT BUNDLE BRANCH BLOCK MINIMAL Q WAVES- INFERIOR LEADS MODERATE T-WAVE ABNORMALITY, CONSIDER LATERAL ISCHEMIA BASELINE ARTIFACT- I, II, III, AVR, AVL, AVF ABNORMAL ECG No previous ECG available for comparison Electronically Signed On 08-01-2024 15:50:26 CDT by Ascencion Monroy D.O.
[2024-08-01] MEDS: fentaNYL CITRATE INJ (*CRX) 100 MCG/2 ML VIAL 50 MCG IV PUSH (10:12)
[2024-08-01 10:32] LABS: Hematocrit 35.4 % (42.0-52.0); Hemoglobin 11.4 g/dL (14.0-18.0); Mean Corpuscular HGB Conc 32.2 g/dl (32-36); Mean Corpuscular Hemoglobin 33.9 pg (26-34); Mean Corpuscular Volume 105.4 fl (80-100); Mean Platelet Volume 12.3 fl (7.4-10.4); Platelet Count Result 209 k/mm3 (150-375); Red Blood Count 3.36 M/mm3 (4.6-6.20); Red Cell Distribution Width 15.2 % (11.5-14.5); White Blood Count 20.6 K/mm3 (4.5-10.0)
[2024-08-01 10:42] LABS: Alanine Aminotransferase 14 U/L (6-50); Albumin Level 3.3 g/dL (3.5-5.1); Alkaline Phosphatase 89 U/L (38-126); Anion Gap 16 mmol/L (4-12); Aspartate Amino Transferase 16 U/L (17-59); Bilirubin,Total 0.9 mg/dL (0.2-1.3); Blood Urea Nitrogen 80 mg/dL (9-20); Calcium 8.2 mg/dL (8.4-10.2); Carbon Dioxide 23 mmol/L (22-30); Chloride 94 mmol/L (98-107); Estimated Glomerular Filt Rate 8; Glucose 144 mg/dL (65-110); Potassium 5.2 mmol/L (3.4-5.0); Sodium 133 mmol/L (137-145)
[2024-08-01 10:45] LABS: INR 1.4; Partial Thromboplastin Time 23.5 Seconds (22.3-36.8); Prothrombin Time 18.2 Seconds (11.1-14.7)
--- NOTE | 2024-08-01 10:59 | ED.GENADULT ---
HPI - General Adult General Chief complaint: Dizziness Stated complaint: pos blood cultures Time Seen by Provider: 08/01/24 09:31 History of Present Illness HPI narrative: Patient is a 68-year-old male who presents ER for evaluation after a fall coming to the hospital. He was arriving at the hospital because he was told he had positive outpatient blood cultures and need to return for IV antibiotics. He was sitting in wheelchair at the entrance to the hospital when he got lightheaded from having walked inside and sat himself down and then slid out. He struck his head on the ground. No LOC. He has a small laceration to the forehead that is linear and vertical in 2 cm in length. He is on Eliquis they takes twice a day. Last dialysis was yesterday. Blood cultures grew out Staph epidermis that is oxacillin resistant. Related Data Home Medications Medication Instructions Recorded Confirmed albuterol sulfate 90 mcg/actuation 2 puff inhalation Q4H PRN 07/28/24 08/01/24 aerosol inhaler shortness of breath/wheezing allopurinol 100 mg tablet 300 mg PO DAILY 07/28/24 08/01/24 apixaban 5 mg tablet (Eliquis) 5 mg PO BID 07/28/24 08/01/24 atorvastatin 40 mg tablet 40 mg PO DAILY 07/28/24 08/01/24 escitalopram oxalate 10 mg tablet 10 mg PO DAILY 07/28/24 08/01/24 insulin NPH-regular hum semi-syn 30 ml subcut BID 07/28/24 08/01/24 100 unit/mL (70-30) subcutaneous soln isosorbide mononitrate 60 mg 60 mg PO DAILY 07/28/24 08/01/24 tablet,extended release 24 hr levothyroxine 25 mcg tablet 25 mcg PO DAILY 07/28/24 08/01/24 methocarbamol 750 mg tablet 750 mg PO QID spasms 07/28/24 08/01/24 pantoprazole 40 mg tablet,delayed 40 mg PO DAILY 07/28/24 08/01/24 release sevelamer carbonate 800 mg tablet 800 mg PO TID 07/28/24 08/01/24 trazodone 50 mg tablet 50 mg PO HS 07/28/24 08/01/24 Allergies Allergy/AdvReac Type Severity Reaction Status Date / Time iohexol Allergy Unknown Verified 07/28/24 20:15 [From contrast - CT, X-RAY] Review of Systems Review of Systems: All systems reviewed & are unremarkable except as noted in HPI and below Constitutional: Constitutional: Denies chills, Reports fatigue and Denies fever(s) ENT: Reports system reviewed and no additional complaints, except as documented Cardiovascular: Cardiovascular: Reports no additional cardiovascular complaints Respiratory: Respiratory: Reports no additional respiratory complaints Gastrointestinal: Gastrointestinal: Reports no additional gastrointestinal complaints [facility] Past Medical History Medical History (Updated 08/01/24 @ 19:09 by Willy Scruggs MD) CAD (coronary artery disease) CHF (congestive heart failure) Chronic back pain COPD (chronic obstructive pulmonary disease) Depression Diabetes ESRD on hemodialysis Gout Hyperlipidemia Hypertension Hypothyroidism JASE (obstructive sleep apnea) Sciatica Surgical History Surgical History (Updated 08/01/24 @ 16:07 by Power Mancia MD) S/P CABG (coronary artery bypass graft) S/P lumbar discectomy Status post insertion of dialysis catheter Family History Family History Mother Hypertension Cancer Diabetes mellitus Father Cancer Congestive heart failure Acute myocardial infarction Social History Social History Smoking packs per day: 2 Smoking cigarettes per day: 40.0 Years smoked: 40 Smoking pack-years: 80.00 Smoking status: Never smoker Alcohol intake: never Substance use: never Substance use type: does not use Do You Feel Safe in your Home?: Yes Lack of Transportation: No Lack of Food: Never True Current Housing: I Have Housing Concerned About Future Housing: No Difficulty Paying Gas/Electric Bills: No Difficulty Paying for Meds: No Currently Unemployed: No Education: Decline to Answer Difficulty w/ Childcare or Family Care: No
[2024-08-01 11:00] LABS: Band Neutrophils Percent 1 % (0-6); Monocytes Absolute Manual 1.44 K/mm3 (0.1-0.90); Monocytes Percent Manual 7 % (3-9); Neutrophils Absolute Manual 18.95 K/mm3 (1.3-6.7); Neutrophils Percent Manual 91 % (46-73); Total Cells Counted 100
[2024-08-01 11:01] LABS: Macrocytosis 1+ (NORMAL); Platelet Estimate Adequate (Adequate); Schistocytes None Seen
[2024-08-01] MEDS: VANCOMYCIN 2,000 MG/NS 500 ML 2,000 MG/500 ML BAG 250 MG IVPB (11:32)
--- NOTE | 2024-08-01 11:40 | PC.NURSE ---
discussed urine sample order with patient. patient states that he makes no urine and in order to make urine he has to drink way more water than allotted
--- NOTE | 2024-08-01 11:52 | PM.IMHP ---
H&P: HPI History of Present Illness Date/Time: 08/01/24 11:52 Chief Complaint: Positive blood cultures/Fall Narrative: Patient is a 68-year-old male who presented to the emergency department with complaints of fall. Patient was called earlier today from [facility] provider regarding his positive blood cultures after he had been discharged to home following a recent admission due to lower back strain. Patient was requested to return to the hospital for further evaluation and treatment for bacteremia. Patient had been directly admitted to the medical floor however when he was walking in he attempted to sit down in wheelchair he became lightheaded and fell hitting his head, small laceration noted to forehead. Patient was then taken to the ER for immediate evaluation. Patient previous blood cultures grew staphylococcus epidermidis and he was started on vancomycin in the emergency department. 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 Patient with leukocytosis of 20.7, afebrile, sinus [place], and BP stable. Patient does have a history end-stage renal disease on dialysis as well as chronic back pain. Patient did report he had a implanted cardiac impulse device for his HF. Review of Systems Review of Systems: All systems reviewed & are unremarkable except as noted in HPI and below PMFSH Past Medical History Medical History Chronic back pain ESRD on hemodialysis Sciatica Family History Family History (Updated 07/28/24 @ 21:07 by Colleen Allen RN) Mother Hypertension Cancer Diabetes mellitus Father Cancer Congestive heart failure Acute myocardial infarction Social History Social History Smoking packs per day: 2 Smoking cigarettes per day: 40.0 Years smoked: 40 Smoking pack-years: 80.00 Smoking status: Former smoker Alcohol intake: never Substance use: never Substance use type: does not use Do You Feel Safe in your Home?: Yes Lack of Transportation: No Lack of Food: Never True Current Housing: I Have Housing Concerned About Future Housing: No Difficulty Paying Gas/Electric Bills: No Difficulty Paying for Meds: No Currently Unemployed: No Education: High School Diploma/GED Difficulty w/ Childcare or Family Care: No Spiritual care concerns: No Meds Home Medications and Allergies Home Medications Medication Instructions Recorded Confirmed Type albuterol sulfate 90 mcg/actuation 2 puff inhalation Q4H PRN 07/28/24 08/01/24 History aerosol inhaler shortness of breath/wheezing allopurinol 100 mg tablet 300 mg PO DAILY 07/28/24 08/01/24 History apixaban 5 mg tablet (Eliquis) 5 mg PO BID 07/28/24 08/01/24 History atorvastatin 40 mg tablet 40 mg PO DAILY 07/28/24 08/01/24 History escitalopram oxalate 10 mg tablet 10 mg PO DAILY 07/28/24 08/01/24 History insulin NPH-regular hum semi-syn 30 ml subcut BID 07/28/24 08/01/24 History 100 unit/mL (70-30) subcutaneous soln isosorbide mononitrate 60 mg 60 mg PO DAILY 07/28/24 08/01/24 History tablet,extended release 24 hr levothyroxine 25 mcg tablet 25 mcg PO DAILY 07/28/24 08/01/24 History methocarbamol 750 mg tablet 750 mg PO QID spasms 07/28/24 08/01/24 History pantoprazole 40 mg tablet,delayed 40 mg PO DAILY 07/28/24 08/01/24 History release sevelamer carbonate 800 mg tablet 800 mg PO TID 07/28/24 08/01/24 History trazodone 50 mg tablet 50 mg PO HS 07/28/24 08/01/24 History dexamethasone 6 mg tablet 6 mg PO DAILY #18 tabs 07/31/24 08/01/24 Rx hydrocodone 10 mg-acetaminophen 1 tablet PO Q6H PRN Pain #20 tabs 07/31/24 08/01/24 Rx 325 mg tablet lidocaine 5 % topical patch 1 patch transdermal DAILY #30 ea 07/31/24 08/01/24 Rx (Lidoderm) Allergies Allergy/AdvReac Type Severity Reaction Status Date / Time
[2024-08-01] MEDS: SODIUM ZIRCONIUM CYCLOSILICATE 10 GM POWD.PACK PO (12:20)
--- NOTE | 2024-08-01 13:36 | PM.CNNEP ---
Assessment and Plan Assessment and plan (1) ESRD on hemodialysis: Code(s): N18.6 - End stage renal disease; Z99.2 - Dependence on renal dialysis Status: Acute Assessment and Plan: Patient has end-stage renal disease on dialysis 3 times a week. This is likely due to diabetes and hypertension. Volume status looks okay. His potassium is slightly high and he has received some Lokelma. The patient will get another treatment on Saturday (2) Bacteremia: Code(s): R78.81 - Bacteremia Status: Acute Assessment and Plan: Patient has bacteremia. He had Staph epi in his blood at 9:10 a.m. and then on repeat he had more positivity on 07/30. Has a catheter in place for dialysis and also has a pacemaker. Does have some back pain however he has had this for a long time. He is getting antibiotics. (3) Hyperkalemia: Code(s): E87.5 - Hyperkalemia Status: Acute Assessment and Plan: Potassium was slightly high. He received Lokelma (4) Chronic back pain: Code(s): M54.9 - Dorsalgia, unspecified; G89.29 - Other chronic pain Status: Acute Assessment and Plan: Chronic back pain (5) Anemia of chronic disease: Code(s): D63.8 - Anemia in other chronic diseases classified elsewhere Status: Acute Assessment and Plan: Hemoglobin 11.4. No need for AYALA at this point History of Present Illness Reason for Consult Consult date: 08/01/24 Chief Complaint Chief complaint: Bacteremia History of Present Illness Narrative: Yobany is a very pleasant 5-year-old gentleman has multiple medical problems including end-stage renal disease on dialysis 3 times a week on Wednesdays and Fridays, high body mass index, gout, anemia, renal osteodystrophy, chronic back pain who was admitted on the for back pain. Patient had a CT scan which showed degenerative disc disease. They treated him symptomatically. Blood cultures were done and were pending at discharge. He went home feeling better. This morning the blood cultures came back positive so he was asked to come back in. He did not have any fevers or chills while he was at home. He did have dialysis yesterday morning at the hospital before he left. Review of Systems Constitutional: Constitutional: Reports no additional constitutional complaints Eyes: Eyes: Reports no additional eye complaints ENT: Reports system reviewed and no additional complaints, except as documented Cardiovascular: Cardiovascular: Reports no additional cardiovascular complaints Respiratory: Respiratory: Reports no additional respiratory complaints Gastrointestinal: Gastrointestinal: Reports no additional gastrointestinal complaints Genitourinary: Genitourinary: Reports no additional male genitourinary complaints Musculoskeletal: Musculoskeletal: Reports no additional musculoskeletal complaints Integumentary/Breasts: Skin/Breast: Reports system reviewed and no additional complaints, except as docu Neurologic: Reports system reviewed and no additional complaints, except as documented Psychiatric: Psychiatric: Reports no additional psychiatric complaints Endocrine: Endocrine: Reports no additional endocrine complaints PMFSH Past Medical History Medical History Chronic back pain ESRD on hemodialysis Sciatica Family History Family History Mother Hypertension Cancer Diabetes mellitus Father Cancer Congestive heart failure Acute myocardial infarction Social History Social History Smoking packs per day: 2 Smoking cigarettes per day: 40.0 Years smoked: 40 Smoking pack-years: 80.00 Smoking status: Former smoker Alcohol intake: never Substance use: never Substance use type: does not use Do You Feel Safe in your Home?: Yes Lack of Tra
[2024-08-01] MEDS: PERFLUTREN LIPID MICROSPHERES 1.5 ML VIAL DILUTED TO 10 ML TOTAL VOLUME IV PUSH (14:00)
--- NOTE | 2024-08-01 14:12 | PC.NURSE ---
This patient, Yobany Garner, was admitted to 3 [facility] Surg Room 319-01. Patient/family oriented to hospital policies and general routines including ID bracelet, bed and alarms, visiting hours, pain management, procedures, bathroom and other care routines, personal items, smoking policy, room service/diet, and visiting hours. Information on how to activate the Rapid Response Team has been discussed. Patient/Family are encouraged to report perceived risks to care and to ask questions if they do not understand what they are told or what they should do.
[2024-08-01] MEDS: ESCITALOPRAM OXALATE 10 MG TABLET PO (14:20)
[2024-08-01] MEDS: ISOSORBIDE MONONITRATE 60 MG TAB.ER.24H PO (14:20)
[2024-08-01] MEDS: PANTOPRAZOLE 40 MG TABLET PO (14:20)
[2024-08-01] MEDS: ATORVASTATIN 40 MG TABLET PO (14:20)
[2024-08-01] MEDS: allopurinoL 300 MG TABLET PO (14:20)
--- NOTE | 2024-08-01 14:24 | IVDEFINITY ---
Prior to administration of IV Definity the patient was educated on the risks and benefits of the imaging enhancing agent including potential adverse side effects. The patient verbalized understanding. Allergies were verified. No exclusion criteria were identified and at least one of the following inclusion criteria were met: 1) physician request, 2) patient technically difficult to image (per the [place] [employer] guidelines of two or more segments not discernable within the apical view), or 3) questionable left ventricular function. ?
[2024-08-01] MEDS: methocarbamoL 750 MG TABLET PO ×2 (16:54→20:40)
[2024-08-01] MEDS: SEVELAMER CARBONATE 800 MG TABLET PO (16:54)
[2024-08-01] MEDS: APIXABAN 5 MG TABLET PO (16:54)
[2024-08-01] MEDS: HYDROcodone/acetaminophen (*CRX) 10-325 MG TABLET 1 TAB PO ×2 (16:54→23:55)
[2024-08-01] MEDS: INSULIN HUMAN ISOPHAN/REGULAR 70/30 (*BKC) 100 UNITS/ML 30 UNITS SUB-Q (17:01)
[2024-08-01] MEDS: traZODone HCL 50 MG TABLET PO (20:40)
--- NOTE | 2024-08-02 03:21 | PC.NURSE ---
ordered urine sample accidentally marked as collected, but it hasn't been collected. patient has not urinated this shift. will reorder and collect when pt voids
[2024-08-02 04:00] VITALS: PULSE 44
[2024-08-02 06:00] VITALS: BP 152/58; PULSE 49; RESP 22; TEMP 36.4; O2SAT 100
[2024-08-02] MEDS: HYDROcodone/acetaminophen (*CRX) 10-325 MG TABLET 1 TAB PO (06:09)
[2024-08-02] MEDS: LEVOTHYROXINE SODIUM 25 MCG TABLET PO (06:09)
[2024-08-02 06:52] LABS: Basophils Percent Auto 0.2 % (0.2-1.2); Eosinophils Percent Auto 0.1 % (0-4.4); Hematocrit 35.7 % (42.0-52.0); Hemoglobin 11.6 g/dL (14.0-18.0); Immature Granulocyte Absolute 0.29 K/mm3 (0.00-0.031); Immature Granulocyte Percent A 2.2 % (0-0.5); Lymphocytes Absolute Auto 1.29 K/mm3 (0.9-3.2); Lymphocytes Percent Auto 9.8 % (18.3-44.2); Mean Corpuscular HGB Conc 32.5 g/dl (32-36); Mean Corpuscular Hemoglobin 34.9 pg (26-34); Mean Corpuscular Volume 107.5 fl (80-100); Mean Platelet Volume 12.3 fl (7.4-10.4); Monocytes Absolute Auto 1.2 K/mm3 (0.1-0.6); Neutrophils Absolute Auto 10.3 K/mm3 (1.3-6.7); Neutrophils Percent Auto 78.7 % (45.5-73.1); Platelet Count Result 183 k/mm3 (150-375); Red Blood Count 3.32 M/mm3 (4.6-6.20); Red Cell Distribution Width 15.3 % (11.5-14.5); White Blood Count 13.1 K/mm3 (4.5-10.0)
[2024-08-02 07:00] LABS: Anion Gap 15 mmol/L (4-12); Blood Urea Nitrogen 102 mg/dL (9-20); Carbon Dioxide 28 mmol/L (22-30); Chloride 90 mmol/L (98-107); Estimated CRCL calculation 11 ml/min; Estimated Glomerular Filt Rate 7; Glucose 101 mg/dL (65-110); Magnesium 2.1 mg/dL (1.6-2.3); Phosphorus 7.4 mg/dL (2.5-4.5); Potassium 4.7 mmol/L (3.4-5.0); Sodium 133 mmol/L (137-145)
[2024-08-02] MEDS: HYDROcodone/acetaminophen (*CRX) 5-325 MG TABLET 1 TAB PO ×2 (07:00→21:14)
[2024-08-02 07:01] LABS: Alanine Aminotransferase 11 U/L (6-50); Albumin Level 3.2 g/dL (3.5-5.1); Alkaline Phosphatase 70 U/L (38-126); Aspartate Amino Transferase 15 U/L (17-59)
[2024-08-02 07:18] LABS: Anisocytosis 1+; Macrocytosis 1+ (NORMAL); Platelet Estimate Adequate (Adequate); Schistocytes None Seen
[2024-08-02] MEDS: ESCITALOPRAM OXALATE 10 MG TABLET PO (08:03)
[2024-08-02] MEDS: methocarbamoL 750 MG TABLET PO ×4 (08:03→21:14)
[2024-08-02] MEDS: PANTOPRAZOLE 40 MG TABLET PO (08:03)
[2024-08-02] MEDS: APIXABAN 5 MG TABLET PO ×2 (08:03→17:14)
[2024-08-02] MEDS: ISOSORBIDE MONONITRATE 60 MG TAB.ER.24H PO (08:03)
[2024-08-02] MEDS: SEVELAMER CARBONATE 800 MG TABLET PO ×3 (08:03→17:15)
[2024-08-02] MEDS: LIDOCAINE 5% PATCH 1 PATCH TRANSDERM (08:04)
[2024-08-02] MEDS: ATORVASTATIN 40 MG TABLET PO (08:04)
[2024-08-02] MEDS: allopurinoL 300 MG TABLET PO (08:04)
[2024-08-02] MEDS: INSULIN HUMAN ISOPHAN/REGULAR 70/30 (*BKC) 100 UNITS/ML 30 UNITS SUB-Q ×2 (08:05→17:15)
[2024-08-02 08:10] VITALS: O2SAT 92
--- NOTE | 2024-08-02 08:18 | P.PNIM_ITS ---
Progress Note: A&P Assessment and Plan (1) Bacteremia: Code(s): R78.81 - Bacteremia Status: Acute Assessment and Plan: * Blood cultures times for Staphylococcus epidermidis * Vancomycin IV pharmacy to dose * Leukocytosis of 20.7 POA * Will need to monitor patient's renal function closely * Follow-up blood cultures pending * Some concern for infection at dialysis catheter also has implanted impulse cardiac device * CXR clear * Echocardiogram to rule out endocarditis * Continuous cardiac monitored * Nephrology consulted * may need consult to cardiology 08/02/24 * oxacillin resistant staph prelim * WBC 13 * Follow-up blood cultures in 48 hours (2) ESRD on hemodialysis: Code(s): N18.6 - End stage renal disease; Z99.2 - Dependence on renal dialysis Status: Acute Assessment and Plan: * Nephrology consulted * Dialysis MWF * monitor electrolytes daily * Renal diet * Avoid nephrotoxic drugs * Need to monitor due to current vancomycin pharmacy to dose (3) Fall: Code(s): W19.XXXA - Unspecified fall, initial encounter Status: Acute Assessment and Plan: * Ground level fall * 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 * PT/OT (4) Acute exacerbation of chronic low back pain: Code(s): M54.50 - Low back pain, unspecified; G89.29 - Other chronic pain Status: Acute Assessment and Plan: * Resume home pain medication * Discontinued oral steroids * Lidocaine patch to lumbar area * Scheduled to follow-up with Neurosurgery outpatient * May need MRI due to current infection 08/02/24: * steroids x1 * pain medication * MRI pending (5) Anemia of chronic disease: Code(s): D63.8 - Anemia in other chronic diseases classified elsewhere Status: Acute Assessment and Plan: * Secondary to ESRD * Hgb stable * CBC daily (6) Hyperkalemia: Code(s): E87.5 - Hyperkalemia Status: Acute Assessment and Plan: * K+ 5.2 POA * Patient not schedule for dialysis for 2 more days * Gave 1 dose of Lokelma * Follow-up CMP in the a.m. * On continuous cardiac monitoring 08/02/24 * K 4.8 today after Lokelma * will monitor plan for dialysis tomorrow Plan Code status: Full code per patient DVT prophylaxis: Eliquis Stress ulcer prophylaxis: MARII PT/OT notes: PT/OT Pending Disposition: Patient was admitted to the medical unit for bacteremia will continue with IV vancomycin pending cultures and sensitivities. Plan will be for discharge back to home when medically stable. Time Spent With Patient Time with patient: 15 - 25 minutes Subjective Date/time seen: 08/02/24 08:18 Interval history: Admission: Patient is a 68-year-old male who presented to the emergency department with complaints of fall. Patient was called earlier today from [facility] provider regarding his po
--- NOTE | 2024-08-02 08:18 | PM.IMPN ---
Progress Note: A&P Assessment and Plan (1) Bacteremia: Code(s): R78.81 - Bacteremia Status: Acute Assessment and Plan: Blood cultures times for Staphylococcus epidermidis Vancomycin IV pharmacy to dose Leukocytosis of 20.7 POA Will need to monitor patient's renal function closely Follow-up blood cultures pending Some concern for infection at dialysis catheter also has implanted impulse cardiac device CXR clear Echocardiogram to rule out endocarditis Continuous cardiac monitored Nephrology consulted may need consult to cardiology 08/02/24 oxacillin resistant staph prelim WBC 13 Follow-up blood cultures in 48 hours (2) ESRD on hemodialysis: Code(s): N18.6 - End stage renal disease; Z99.2 - Dependence on renal dialysis Status: Acute Assessment and Plan: Nephrology consulted Dialysis MWF monitor electrolytes daily Renal diet Avoid nephrotoxic drugs Need to monitor due to current vancomycin pharmacy to dose (3) Fall: Code(s): W19.XXXA - Unspecified fall, initial encounter Status: Acute Assessment and Plan: Ground level fall 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s Lidocaine patch to lumbar area Scheduled to follow-up with Neurosurgery outpatient May need MRI due to current infection 08/02/24: steroids x1 pain medication MRI pending (5) Anemia of chronic disease: Code(s): D63.8 - Anemia in other chronic diseases classified elsewhere Status: Acute Assessment and Plan: Secondary to ESRD Hgb stable CBC daily (6) Hyperkalemia: Code(s): E87.5 - Hyperkalemia Status: Acute Assessment and Plan: K+ 5.2 POA Patient not schedule for dialysis for 2 more days Gave 1 dose of Lokelma Follow-up CMP in the a.m. On continuous cardiac monitoring 08/02/24 K 4.8 today after Lokelma will monitor plan for dialysis tomorrow Plan Code status: Full code per patient DVT prophylaxis: Eliquis Stress ulcer prophylaxis: NA PT/OT notes: PT/OT Pending Disposition: Patient was admitted to the medical unit for bacteremia will continue with IV vancomycin pending cultures and sensitivities. Plan will be for discharge back to home when medically stable. Time Spent With Patient Time with patient: 15 - 25 minutes Subjective Date/time seen: 08/02/24 08:18 Interval history: Admission: Patient is a 68-year-old male who presented to the emergency department with complaints of fall. Patient was called earlier today from [facility] provider regarding his positive blood cultures after he had been discharged to home following a recent admission due to lower back strain. Patient was requested to return to the hospital for further evaluation and treatment for bacteremia. Patient had been directly admitted to the medical floor however when he was walking in he attempted to sit down in wheelchair he became lightheaded and fell hitting his head, small laceration noted to forehead. Patient was then taken to the ER for immediate evaluation. Patient previous blood cultures grew staphylococcus epidermidis and he was started on vancomycin in the emergency department. 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 Patient with leukocytosis of 20.7, afebrile, sinus [place], and BP stable. Patient does have a history end-stage renal disease on dialysis as well as chronic back pain. Patient did report he had a implanted cardiac impulse device for his HF. 08/02/24: Cultures x 4 with Staph Epidermidis oxacillin resistant prelim, follow-up cultures don
--- NOTE | 2024-08-02 09:52 | PM.PNNEP ---
Progress Note: A&P Assessment and Plan (1) ESRD on hemodialysis: Code(s): N18.6 - End stage renal disease; Z99.2 - Dependence on renal dialysis Status: Acute Assessment and Plan: Patient has end-stage renal disease on dialysis 3 times a week. This is likely due to diabetes and hypertension. Volume status looks okay. His potassium is better today. The patient will get a dialysis treatment on Saturday (2) Bacteremia: Code(s): R78.81 - Bacteremia Status: Acute Assessment and Plan: Patient has bacteremia. He had Staph epi in his blood at 9:10 a.m. and then on repeat he had more positivity on 07/30. Repeat cultures from yesterday are pending. He is on vancomycin. Has a catheter in place for dialysis and also has a pacemaker. Does have some back pain however he has had this for a long time; could he have a nidus of infection there?. (3) Hyperkalemia: Code(s): E87.5 - Hyperkalemia Status: Acute Assessment and Plan: Potassium is back to normal (4) Chronic back pain: Code(s): M54.9 - Dorsalgia, unspecified; G89.29 - Other chronic pain Status: Acute Assessment and Plan: Chronic back pain Pain is much worse today. He has reached out to the nurses. (5) Anemia of chronic disease: Code(s): D63.8 - Anemia in other chronic diseases classified elsewhere Status: Acute Assessment and Plan: Hemoglobin 11.6. No need for AYALA at this point Subjective Date/time seen: 08/02/24 09:52 Interval history: Yobany is in pain this morning. He has asked for pain meds. The VSE EVAKUATORY ROSSII is not working. Review of Systems Cardiovascular: Cardiovascular: Reports no additional cardiovascular complaints Respiratory: Respiratory: Reports no additional respiratory complaints Gastrointestinal: Gastrointestinal: Reports no additional gastrointestinal complaints Genitourinary: Genitourinary: Reports no additional male genitourinary complaints Exam Narrative: WDWN in NAD skin no rash head ncat lungs clear cor reg no rub abd BS+ nontender and soft ext no edema. Objective Data Vital Signs Vital Signs: Vital Signs - 24 hr 08/01/24 10:15 08/01/24 10:30 08/01/24 10:48 Temperature Pulse Rate 55 L 49 L 54 L Respiratory Rate 17 14 20 Blood Pressure Pulse Oximetry 96 96 97 Oxygen Delivery Fraction of Inspired Oxygen 08/01/24 10:59 08/01/24 11:00 08/01/24 11:01 Temperature Pulse Rate 52 L 52 L 52 L Respiratory Rate 17 12 12 Blood Pressure 132/62 120/51 L Pulse Oximetry 98 99 94 Oxygen Delivery Fraction of Inspired Oxygen 08/01/24 11:16 08/01/24 11:17 08/01/24 11:50 Temperature 98.9 F Pulse Rate 54 L 54 L 53 L Respiratory Rate 20 20 14 Blood Pressure 136/52 L 111/62 Pulse Oximetry 99 98 93 Oxygen Delivery Fraction of Inspired Oxygen 08/01/24 12:00 08/01/24 14:00 08/01/24 21:26 Temperature 96.2 F L 98.3 F 98.9 F Pulse Rate 56 L 55 L 61 Respiratory Rate 24 H 20 22 H Blood Pressure 120/57 L 103/65 142/60 H Pulse Oximetry 96 98 96 Oxygen Delivery Fraction of Inspired Oxygen 08/01/24 20:00 08/02/24 06:00 08/02/24 04:00 Temperature 97.5 F L Pulse Rate 49 L 44 L Respiratory Rate 22 H Blood Pressure 152/58 H Pulse Oximetry 100 Oxygen Delivery Room Air Fraction of Inspired Oxygen 08/02/24 08:10 Temperature Pulse Rate Respiratory Rate Blood Pressure Pulse Oximetry 92 Oxygen Delivery Room Air Fraction of Inspired Oxygen 21 Intake/Output Intake/Output: Intake & Output 07/30/24 07/31/24 08/01/24 08/02/24 23:59 23:59 23:59 23:59 Intake Total 1220 940 Output Total 4 Balance 1216 940 Meds/Results Medications: Active Medications Generic Name Dose Route Start Last Admin Trade Name Freq PRN Reason Stop Dose Admin Acetaminophen 650 mg 08/01/24 11:47 Acetaminophen 325 Mg Tablet PO Q4H PRN Mild Pain (1-3) or Fev
--- NOTE | 2024-08-02 10:38 | PCPTNOTE ---
attempted PT eval, pt rolling in pain in the bed, pt refused to participate at this time until he gets pain relief, spoke with RN who is going to give him a steroid, will follow when pt is able to tolerate eval
[2024-08-02] MEDS: dexAMETHasone SOD PHOS INJ 10 MG/ML 1 ML VIAL 6 MG IV PUSH (10:43)
[2024-08-02 11:47] LABS: Glucose Point of Care 64 mg/dl (65-105)
[2024-08-02 12:13] LABS: Glucose Point of Care 92 mg/dl (65-105)
[2024-08-02 14:00] VITALS: BP 120/51; PULSE 57; RESP 20; TEMP 36.2; O2SAT 97
[2024-08-02 16:37] LABS: Glucose Point of Care 159 mg/dl (65-105)
[2024-08-02 20:00] VITALS: PULSE 56
[2024-08-02 20:29] LABS: Glucose Point of Care 215 mg/dl (65-105)
[2024-08-02 20:51] VITALS: BP 136/51; PULSE 56; RESP 24; TEMP 37.1; O2SAT 98
[2024-08-02] MEDS: traZODone HCL 50 MG TABLET PO (21:14)
[2024-08-03] VITALS (30 sets, daily range): BP systolic 106–154; BP diastolic 34–89; PULSE 49–91; RESP 16–24; TEMP 36.2–37.2; O2SAT 94–97
[2024-08-03] MEDS: LEVOTHYROXINE SODIUM 25 MCG TABLET PO (05:24)
[2024-08-03 05:46] LABS: Basophils Percent Auto 0.2 % (0.2-1.2); Eosinophils Percent Auto 0.1 % (0-4.4); Hemoglobin 11.1 g/dL (14.0-18.0); Immature Granulocyte Absolute 0.32 K/mm3 (0.00-0.031); Immature Granulocyte Percent A 1.8 % (0-0.5); Lymphocytes Absolute Auto 0.86 K/mm3 (0.9-3.2); Lymphocytes Percent Auto 4.7 % (18.3-44.2); Mean Corpuscular HGB Conc 32.6 g/dl (32-36); Mean Corpuscular Hemoglobin 34.7 pg (26-34); Mean Corpuscular Volume 106.3 fl (80-100); Mean Platelet Volume 11.9 fl (7.4-10.4); Monocytes Percent Auto 5.7 % (2.6-8.5); Neutrophils Absolute Auto 15.9 K/mm3 (1.3-6.7); Neutrophils Percent Auto 87.5 % (45.5-73.1); Platelet Count Result 181 k/mm3 (150-375); Red Cell Distribution Width 15.1 % (11.5-14.5); White Blood Count 18.1 K/mm3 (4.5-10.0)
[2024-08-03 06:00] LABS: Alanine Aminotransferase 10 U/L (6-50); Albumin Level 3.1 g/dL (3.5-5.1); Alkaline Phosphatase 75 U/L (38-126); Anion Gap 17 mmol/L (4-12); Aspartate Amino Transferase 11 U/L (17-59); Bilirubin,Total 1.1 mg/dL (0.2-1.3); Blood Urea Nitrogen 117 mg/dL (9-20); Calcium 7.6 mg/dL (8.4-10.2); Carbon Dioxide 24 mmol/L (22-30); Chloride 90 mmol/L (98-107); Estimated CRCL calculation 9 ml/min; Estimated Glomerular Filt Rate 5; Glucose 151 mg/dL (65-110); Phosphorus 8.8 mg/dL (2.5-4.5); Potassium 4.5 mmol/L (3.4-5.0); Sodium 131 mmol/L (137-145)
[2024-08-03 06:06] LABS: Platelet Clumps Present; Platelet Estimate Adequate (Adequate)
[2024-08-03 06:07] LABS: Anisocytosis 1+; Schistocytes None Seen
[2024-08-03 06:08] LABS: Vancomycin Random 15.1 ug/mL (10-20)
[2024-08-03 07:34] LABS: Glucose Point of Care 148 mg/dl (65-105)
[2024-08-03] MEDS: HEPARIN SODIUM 1,000 UNITS/ML VIAL 500 UNITS IV PUSH ×4 (09:16→12:16)
[2024-08-03] MEDS: HEPARIN SODIUM 1,000 UNITS/ML VIAL 5000 UNITS IV PUSH (09:16)
--- NOTE | 2024-08-03 10:00 | PM.CNCAR ---
Assessment and Plan Assessment and plan (1) Bacteremia: Code(s): R78.81 - Bacteremia Status: Acute Assessment and Plan: Discuss CONCEPCIÓN to r/o endocarditis and he is agreeable. Obtain CONCEPCIÓN in AM. Keep NPO after midnight. (2) CAD (coronary artery disease), autologous vein bypass graft: Code(s): I25.810 - Atherosclerosis of coronary artery bypass graft(s) without angina pectoris Status: Acute Assessment and Plan: Stable. (3) Hypertension: Code(s): I10 - Essential (primary) hypertension Status: Chronic Assessment and Plan: Stable. (4) ESRD on hemodialysis: Code(s): N18.6 - End stage renal disease; Z99.2 - Dependence on renal dialysis Status: Acute Assessment and Plan: On Hemodialysis. History of Present Illness History of Present Illness Consult date/time: 08/03/24 10:00 Reason For Visit: Bacteremia Narrative: 68 yr old man presents to hospital as direct admit for positive blood cultures. His regular surgical orderly is Dr. Hadley with [facility]. He has a history of CAD, CABG x3 vessels in [facility] in 2002 and stents since then, ESRD on HD, Optimize impulse device with leads to his heart, DM, hypetension, dyslipidemia. Reports he has chronic lower back pain, blood cultures taken and were positive, and he was directly admitted for that. Denies fever and chills. States he is able to walk only 20 feet with his cane due to chronic back pain and MARTÍNEZ. Denies chest pain, sob, orthopnea, PND, edema, dizziness, palpitations. Review of Systems Review of Systems: All systems reviewed & are unremarkable except as noted in HPI and below Constitutional: Constitutional: Reports as per HPI, Denies chills and Denies fever(s) Cardiovascular: Cardiovascular: Reports as per HPI and Denies chest pain Respiratory: Respiratory: Reports as per HPI and Reports dyspnea on exertion Gastrointestinal: Gastrointestinal: Reports as per HPI and Denies abdominal pain Genitourinary: Genitourinary: Reports as per HPI and Denies dysuria Musculoskeletal: Musculoskeletal: Reports as per HPI and Reports back pain Neurologic: Reports as per HPI, Denies dizziness and Denies syncope [facility] Past Medical History Medical History (Updated 08/03/24 @ 10:04 by Ascencion M. Porfirio, DO) CAD (coronary artery disease) CHF (congestive heart failure) Chronic back pain COPD (chronic obstructive pulmonary disease) Depression Diabetes ESRD on hemodialysis Gout Hyperlipidemia Hypertension Hypothyroidism JASE (obstructive sleep apnea) Sciatica Surgical History Surgical History (Updated 08/01/24 @ 16:07 by Power Mancia MD) S/P CABG (coronary artery bypass graft) S/P lumbar discectomy Status post insertion of dialysis catheter Family History Family History Mother Hypertension Cancer Diabetes mellitus Father Cancer Congestive heart failure Acute myocardial infarction Social History Social History Smoking packs per day: 2 Smoking cigarettes per day: 40.0 Years smoked: 40 Smoking pack-years: 80.00 Smoking status: Never smoker Alcohol intake: never Substance use: never Substance use type: does not use Do You Feel Safe in your Home?: Yes Lack of Transportation: No Lack of Food: Never True Current Housing: I Have Housing Concerned About Future Housing: No Difficulty Paying Gas/Electric Bills: No Difficulty Paying for Meds: No Currently Unemployed: No Education: Decline to Answer Difficulty w/ Childcare or Family Care: No Spiritual care concerns: No Meds Home Medications and Allergies Home Medications Medication Instructions Recorded Confirmed Type albuterol sulfate 90 mcg/actuation 2 puff inhalation Q4H PRN 07/28/24 08/01/24 History aerosol inhaler shortness of breath/wheezing allopurinol 100
--- NOTE | 2024-08-03 10:10 | P.PNNP_ITS ---
Progress Note: A&P Assessment and Plan (1) End stage renal disease: Code(s): N18.6 - End stage renal disease Status: Chronic Assessment and Plan: * HD today * continue outpatient schedule of Sat/Sat/Fridays * follow electrolytes, volume status, and clearance * known to require 4.5 hour treatments to achieve adequate Kt/V and clearance (2) Bacteremia: Code(s): R78.81 - Bacteremia Status: Acute Assessment and Plan: * persistently positive blood culture noted with Staph epidermis * on antibiotic therapy * potential sources of infection included tunneled HD catheter and/or pacemaker * his back pain brings up the possibility of an epidural abscess of discitis a well * agree with plans for CONCEPCIÓN to r/o endocarditis * if CONCEPCIÓN negative, likely next step with be removal of HD catheter (3) Hyperkalemia: Code(s): E87.5 - Hyperkalemia Status: Acute Assessment and Plan: * due to ESRD * adjust dialysis bath to compensate * lokelma PRN * follow K+ levels (4) Low back pain: Code(s): M54.50 - Low back pain, unspecified Status: Acute Assessment and Plan: * acute on chronic issues * CT of lumbar spine findings noted on last admission -- no acute findings * unable to do MRI due to pacemaker (and hence cannot r/o spinal abscess or discitis) * continue pain control * PT/OT as tolerated (5) Hypertension: Code(s): I10 - Essential (primary) hypertension Status: Chronic Assessment and Plan: * despite history, reasonable control with minimal medications * suspect pain medication indirectly helping as well * follow trend of hemodynamics (6) Anemia: Code(s): D64.9 - Anemia, unspecified Status: Chronic Assessment and Plan: * due to ESRD * H/H at goal * AYALA with HD as needed * follow H/H (7) Diabetes: Code(s): E11.9 - Type 2 diabetes mellitus without complications Status: Chronic Assessment and Plan: * follow accu-cheks * glycemic control per hospitalists Will continue to follow. Subjective Date/time seen: 08/03/24 10:10 Interval history: Follow-up for end stage renal disease on hemodialysis. Chart reviewed -- assuming care from Dr. Cam; tolerating hemodialysis treatment at the time of my visit (seen on HD at 10:00AM); major complaint is that of back pain in general with mild improvement from pain medications; no other issues/events overnight or earlier this AM. Exam Narrative: General: elderly but WD/WN Caucsian male in NAD Heart: normal S1 and S2; no rub Lungs: clear to auscultation Abdomen: soft, nontender, nondistended, positive bowel sounds Extremities: no cyanosis or clubbing; no edema Skin: warm and dry Objective Data Vital Signs Vital Signs: Vital Signs Temp Pulse Resp BP Pulse Ox O2 Del Method FiO2 08/03/24 10:00 54 L 151/99 H 08/03/24 09:45 55 L 134/39 L 08/03/24 09:30 54 L 140/48 L 08/03/24 09:15 54 L 121/58 L 08/03/24 09:00 55 L 135/49 L 08/03/24 08:45 49 L 106/59 L 08/03/24 08:38 55 L 130/55 L 08/03/24 08:20 97.9 F 53 L 16 153/50 H 95 08/03/24 05:41 98.5 F 57 L 24 H 141/60 H 97 08/03/24 04:00 55 L 08/03/24 00:00 51 L
--- NOTE | 2024-08-03 10:10 | PM.PNNEP ---
Progress Note: A&P Assessment and Plan (1) End stage renal disease: Code(s): N18.6 - End stage renal disease Status: Chronic Assessment and Plan: HD today continue outpatient schedule of Sat/Sat/Fridays follow electrolytes, volume status, and clearance known to require 4.5 hour treatments to achieve adequate Kt/V and clearance (2) Bacteremia: Code(s): R78.81 - Bacteremia Status: Acute Assessment and Plan: persistently positive blood culture noted with Staph epidermis on antibiotic therapy potential sources of infection included tunneled HD catheter and/or pacemaker his back pain brings up the possibility of an epidural abscess of discitis a well agree with plans for CONCEPCIÓN to r/o endocarditis if CONCEPCIÓN negative, likely next step with be removal of HD catheter (3) Hyperkalemia: Code(s): E87.5 - Hyperkalemia Status: Acute Assessment and Plan: due to ESRD adjust dialysis bath to compensate lokelma PRN follow K+ levels (4) Low back pain: Code(s): M54.50 - Low back pain, unspecified Status: Acute Assessment and Plan: acute on chronic issues CT of lumbar spine findings noted on last admission -- no acute findings unable to do MRI due to pacemaker (and hence cannot r/o spinal abscess or discitis) continue pain control PT/OT as tolerated (5) Hypertension: Code(s): I10 - Essential (primary) hypertension Status: Chronic Assessment and Plan: despite history, reasonable control with minimal medications suspect pain medication indirectly helping as well follow trend of hemodynamics (6) Anemia: Code(s): D64.9 - Anemia, unspecified Status: Chronic Assessment and Plan: due to ESRD H/H at goal AYALA with HD as needed follow H/H (7) Diabetes: Code(s): E11.9 - Type 2 diabetes mellitus without complications Status: Chronic Assessment and Plan: follow accu-cheks glycemic control per hospitalists Will continue to follow. Subjective Date/time seen: 08/03/24 10:10 Interval history: Follow-up for end stage renal disease on hemodialysis. Chart reviewed -- assuming care from Dr. Cam; tolerating hemodialysis treatment at the time of my visit (seen on HD at 10:00AM); major complaint is that of back pain in general with mild improvement from pain medications; no other issues/events overnight or earlier this AM. Exam Narrative: General: elderly but WD/WN Caucsian male in NAD Heart: normal S1 and S2; no rub Lungs: clear to auscultation Abdomen: soft, nontender, nondistended, positive bowel sounds Extremities: no cyanosis or clubbing; no edema Skin: warm and dry Objective Data Vital Signs Vital Signs: Vital Signs Temp Pulse Resp BP Pulse Ox O2 Del Method FiO2 08/03/24 10:00 54 L 151/99 H 08/03/24 09:45 55 L 134/39 L 08/03/24 09:30 54 L 140/48 L 08/03/24 09:15 54 L 121/58 L 08/03/24 09:00 55 L 135/49 L 08/03/24 08:45 49 L 106/59 L 08/03/24 08:38 55 L 130/55 L 08/03/24 08:20 97.9 F 53 L 16 153/50 H 95 08/03/24 05:41 98.5 F 57 L 24 H 141/60 H 97 08/03/24 04:00 55 L 08/03/24 00:00 51 L 08/02/24 20:00 56 L 08/02/24 20:00 Room Air 08/02/24 20:51 98.8 F 56 L 24 H 136/51 L 98 08/02/24 15:20 Room Air 08/02/24 14:00 97.1 F L 57 L 20 120/51 L 97 Intake/Output Intake/Output: Intake & Output 07/31/24 08/01/24 08/02/24 08/03/24 23:59 23:59 23:59 23:59 Intake Total 1220 2070 490 Output Total 4 4 Balance 1216 2070 486 Meds/Results Medications: Active Medications Generic Name Dose Route Start Last Admin Trade Name Freq PRN Reason Stop Dose Admin Acetaminophen 650 mg 08/01/24 11:47 Acetaminophen 325 Mg Tablet PO Q4H PRN Mild Pain (1-3) or Fever Hydrocodone Bitart/Acetaminophen 1 tab
--- OUTSIDE RECORDS SUMMARY | 2024-08-03 10:51 | XMS_ITS ---
Author Name Adarsh Irwin Address [address] [place] [address] Phone [phone] Organization [facility] e, NA DOCUMENT DISCLAIMER Multiple document versions may exist, please be sure you review the latest version. The information in the [facility] Progress Note Document represents a providers documented clinical note containing certain health and medical information. It may not contain the complete medical history for the patient and should be independently verified. The represented time in the document is Eastern Time PROVIDER ROUNDING NOTE BASIC Provider?Rounding?Note?Basic?-?Yobany?Pascual?-?Chart?#: [id number] Patient?was?seen?on:?01/11/2023 Was?Patient?seen?today?:?01/11/2023 Method?of?Interaction:?Face?to?face Date?of?Interaction:?01/11/2023 Patient?is?stable Patient?issues?include: doing?better.??DC?midodrine. Prior?Treatment:?01/09/2023? Dialyzer:?180NRe?Optiflux? Dialysate:?3.0?K,?2.5 Ca,?1.0?Mg,?100?Dextrose?(G3251)? Actual?Time:?04:29?Prescribed?Time:?4:30? Avg?BFR:?480?Avg?DFR:?760? Wt?Gain?(kg):?3.60?EDW?(kg):?138.50? post?Wt?(kg):? VITALS ?Date:?Temperature:?Pulse:?Respirations:?BP?(Sitting):?BP?(Standing):?Weight:? HOME?MEDICATIONS ?allopurinol?(allopurinol)??100?mg,?oral,?3?tablet?once?a?day ?amiodarone?(amiodarone)??200?mg,?oral,?1?tablet?once a?day ?cyanocobalamin?(vitamin?B-12)?(cyanocobalamin?(vitamin?b-12))?&# 160;1,000?mcg,?oral,?1?tablet?once?a?day ?escitalopram?oxalate?(escitalopram?oxalate)??10?mg,?oral,&# 160;1?tablet?once?a?day??[for?depression] ?iron?(ferrous?sulfate)??325?mg?(65?mg?iron),?oral,?1?mg?once?a?day ?isosorbide?mononitrate?(isosorbide?mononitrate)??60?mg,?ora l,?1?tablet?once?a?day ?levothyroxine?(levothyroxine)??25?mcg,?oral,?1?tablet?once?a?day ?losartan?(losartan)??25?mg,?oral,?25?mg?once?a day ?Novolin?70/30?U-100?Insulin?(insulin?nph?and?regular?h uman)??100?unit/mL?(70-30),?subQ,?25?unit?twice?a?day ?Protonix?(pantoprazole)??40?mg,?oral,?1?tablet?once a?day ?Renvela?(sevelamer?carbonate)??800?mg,?oral,?2?tablet three?times?a?day ?Xarelto?(rivaroxaban)??15?mg,?oral,?1?tablet?once a?day Adarsh?Dc,? END OF DOCUMENT
--- OUTSIDE RECORDS SUMMARY | 2024-08-03 10:51 | XMS_ITS ---
Author Name Ivana Wilder Address [address] [place] [address] Phone [phone] Organization [facility] e, NA DOCUMENT DISCLAIMER Multiple document versions may exist, please be sure you review the latest version. The information in the [facility] Progress Note Document represents a providers documented clinical note containing certain health and medical information. It may not contain the complete medical history for the patient and should be independently verified. The represented time in the document is Eastern Time PROVIDER ROUNDING NOTE BASIC HD PROVIDER?ROUNDING?NOTE?BASIC?HD Clinic:?[address] [place] [address]?[facility] Visit?date:?05/04/2022?00:00?Modality/setting:?IHD Yobany?Pascual?-?Chart?#:?[id number] Method?of?Interaction:?Face?to?face Date?of?Interaction:?05/11/2024 ?-?Patient?is?stable ?-?Medications?and?labs?reviewed. Patient?issues?include: Late?entry,?Pt?denies?c/o?SOB?and?cramping?while?on dialysis.?Tolerating dialysis?without?difficulty.?Patient?education?on?fluid?management?between?tx's. WCTM. Prior?Treatment:?05/11/2024? Dialyzer:?Optiflux?250NRe? Dialysate:?2.0?K,?2.5 Ca,?1.0?Mg,?100?Dextrose?(G2251)? Prescribed?Time:?4:30? Actual?Time:?04:30? Avg?BFR:?460? Avg?DFR:?700? Wt?Gain?(kg):?3.40? EDW?(kg):?135.00? Home?Medications ?allopurinol?(allopurinol) 100?mg,?oral,?4?tablet?once?a?day ??apixaban?(apixaban) 5?mg,?oral,?1?tablet?every?twelve?hours ??atorvastatin?(atorvastatin) 40?mg,?oral,?1?tablet?once?a?day ??Coreg?(carvedilol) 6.25?mg,?oral,?1?tablet?twice?a?day ??cyanocobalamin?(vitamin?B-12)?(cyanocobalamin?(vitamin?b-12)) 500?mcg,?oral,?1?tablet?once?a?day ??escitalopram?oxalate?(escitalopram?oxalate) 10?mg,?oral,?1?tablet?once?a?day [for?depression] ??iron?(ferrous?sulfate) 325?mg?(65?mg?iron),?oral,?1?mg?once?a?day ??levothyroxine?(levothyroxine) 25?mcg,?oral,?1?tablet?once?a?day ??Protonix?(pantoprazole) 40?mg,?oral,?1?tablet?once?a?day ??Renvela?(sevelamer?carbonate) 800?mg,?oral,?3?tablet?three?times?a?day ??trazodone?(trazodone) 50?mg,?oral,?1?tablet Ivana?A?Meño,?ARCHITECTURAL INSPECTOR END OF DOCUMENT
--- OUTSIDE RECORDS SUMMARY | 2024-08-03 10:51 | XMS_ITS ---
Author Name Ivana Wilder Address [address] [place] [address] Phone [phone] Organization [facility] e, NA DOCUMENT DISCLAIMER Multiple document versions may exist, please be sure you review the latest version. The information in the [facility] Progress Note Document represents a providers documented clinical note containing certain health and medical information. It may not contain the complete medical history for the patient and should be independently verified. The represented time in the document is Eastern Time PROVIDER ROUNDING NOTE BASIC HD PROVIDER?ROUNDING?NOTE?BASIC?HD Clinic:?[address] [place] [address]?[facility] Visit?date:?05/04/2022?00:00?Modality/setting:?IHD Yobany?Pascual?-?Chart?#:?[id number] Method?of?Interaction:?Face?to?face Date?of?Interaction:?02/10/2024 ?-?Patient?is?stable ?-?Low?blood?pressure?noted. ?-?Medications?and?labs?reviewed. Patient?issues?include: Late?entry,?Pt?denies?c/o?SOB?and?cramping?while?on dialysis.?Tolerating dialysis?without?difficulty.?Patient?education?on?fluid?management?between?tx's. Not?meeting?EDW,?EDW?increased?to?134kg.?WCTM. Prior?Treatment:?02/12/2024? Dialyzer:?Optiflux?200NRe? Dialysate:?2.0?K,?2.5 Ca,?1.0?Mg,?100?Dextrose?(G2251)? Prescribed?Time:?4:30? Actual?Time:?04:19? Avg?BFR:?450? Avg?DFR:?700? Wt?Gain?(kg):?2.80? EDW?(kg):?132.00? Home?Medications ?allopurinol?(allopurinol) 100?mg,?oral,?4?tablet?once?a?day ??apixaban?(apixaban) 5?mg,?oral,?1?tablet?every?twelve?hours ??atorvastatin?(atorvastatin) 40?mg,?oral,?1?tablet?once?a?day ??Coreg?(carvedilol) 6.25?mg,?oral,?1?tablet?twice?a?day ??cyanocobalamin?(vitamin?B-12)?(cyanocobalamin?(vitamin?b-12)) 500?mcg,?oral,?1?tablet?once?a?day ??digoxin?(digoxin) 125?mcg?(0.125?mg),?oral,?1?tablet?three?times?a?week [take?on?M-W-] ??escitalopram?oxalate?(escitalopram?oxalate) 10?mg,?oral,?1?tablet?once?a?day [for?depression] ??iron?(ferrous?sulfate) 325?mg?(65?mg?iron),?oral,?1?mg?once?a?day ??levothyroxine?(levothyroxine) 25?mcg,?oral,?1?tablet?once?a?day ??Miralax?(polyethylene?glycol?3350) 17?gram,?oral,?1?packet?once?a?day ??Protonix?(pantoprazole) 40?mg,?oral,?1?tablet?once?a?day ??Renvela?(sevelamer?carbonate) 800?mg,?oral,?2?tablet?three?times?a?day ??trazodone?(trazodone) 50?mg,?oral,?1?tablet Ivana?A?Meño,?ORTHOPAEDIC DOCTOR END OF DOCUMENT
--- OUTSIDE RECORDS SUMMARY | 2024-08-03 10:51 | XMS_ITS ---
Author Name Adarsh Irwin Address [address] [place] [id number] Phone [phone] Organization [facility] e, NA DOCUMENT DISCLAIMER Multiple document versions may exist, please be sure you review the latest version. The information in the [facility] Progress Note Document represents a providers documented clinical note containing certain health and medical information. It may not contain the complete medical history for the patient and should be independently verified. The represented time in the document is Eastern Time PROVIDER ROUNDING NOTE COMP HD PROVIDER?ROUNDING?NOTE?COMP?HD Clinic:?[address] [place] [address]?[facility] Visit?date:?05/04/2022?00:00?Modality/setting:?IHD Yobany?Pascual?-?Chart?#:?[id number] Method?of?Interaction:?Face?to?face Date?of?Interaction:?11/01/2023 ?-?Patient?is?stable ?-?Medications?and?labs?reviewed. Patient?issues?include: slowly?improving.??-HD?mainly?for?UF,?likely?has?some&# 160;RRF.??-large?fluid?gains.? -phos?hi,?start?binders,?steal?sx,?access?ligated.??-k& #160;and?phos?high,?counseled. -doing?okay,?seen?may?5?and?12.??-05/01?and?16,&#16 0;a?fib,?to?see?ep,?stop?losartan.? -05/24,?stable?tx?and?labs.??-08/09,?stable?for?most?part.??-09/06,?stable,?k borderline?high,?hold?[place]?for?now.??-11/01,?avf?clotting,?no?success, multiple?failed?attempts. Prior?Treatment:?10/30/2023? Dialyzer:?Optiflux?200NRe? Dialysate:?2.0?K,?2.5 Ca,?1.0?Mg,?100?Dextrose?(G2251)? Prescribed?Time:?4:30?Avg?BFR:?400?Wt?Gain (kg):?3.50? Actual?Time:?04:30?Avg?DFR:?700?&#16 0;EDW?(kg):?136.00? Adequacy ?spKt/V?eKdrt/V?&#160 ; ???OLC?(Del)?spKtv?URR?%?1.11?10/23/23?? ?1.03?10/23/23?? ?1.39?1 12/31/22?? ?60?10/23/23? ?1.37?10/14/23?? ?1.24?10/14/23?? ?1.39?1 12/29/22?? ?69?10/14/23? ?1.29?10/09/23?? ?1.21?10/09/23?? ?1.25?1 12/26/22?? ?66?10/09/23?
--- OUTSIDE RECORDS SUMMARY | 2024-08-03 10:51 | XMS_ITS ---
Author Name Adarsh Irwin Address [address] [place] [address] Phone [phone] Organization [facility] e, NA DOCUMENT DISCLAIMER Multiple document versions may exist, please be sure you review the latest version. The information in the [facility] Progress Note Document represents a providers documented clinical note containing certain health and medical information. It may not contain the complete medical history for the patient and should be independently verified. The represented time in the document is Eastern Time PROVIDER ROUNDING NOTE BASIC Provider?Rounding?Note?Basic?-?Yobany?Pascual?-?Chart?#: [id number] Patient?was?seen?on:?02/01/2023 Was?Patient?seen?today?:?02/01/2023 Method?of?Interaction:?Face?to?face Date?of?Interaction:?02/01/2023 Patient?is?stable Patient?issues?include: doing?better.??DC?midodrine.??-large?fluid?gains. Prior?Treatment:?01/30/2023? Dialyzer:?Optiflux?200NRe? Dialysate:?2.0?K,?2.5 Ca,?1.0?Mg,?100?Dextrose?(G2251)? Actual?Time:?04:30?Prescribed?Time:?4:30? Avg?BFR:?450?Avg?DFR:?770? Wt?Gain?(kg):?3.80?EDW?(kg):?138.50? post?Wt?(kg):? VITALS ?Date:?Temperature:?Pulse:?Respirations:?BP?(Sitting):?BP?(Standing):?Weight:? HOME?MEDICATIONS ?allopurinol?(allopurinol)??100?mg,?oral,?3?tablet?once?a?day ?amiodarone?(amiodarone)??200?mg,?oral,?1?tablet?once a?day ?cyanocobalamin?(vitamin?B-12)?(cyanocobalamin?(vitamin?b-12))?&# 160;1,000?mcg,?oral,?1?tablet?once?a?day ?escitalopram?oxalate?(escitalopram?oxalate)??10?mg,?oral,&# 160;1?tablet?once?a?day??[for?depression] ?iron?(ferrous?sulfate)??325?mg?(65?mg?iron),?oral,?1?mg?once?a?day ?isosorbide?mononitrate?(isosorbide?mononitrate)??60?mg,?ora l,?1?tablet?once?a?day ?levothyroxine?(levothyroxine)??25?mcg,?oral,?1?tablet?once?a?day ?losartan?(losartan)??25?mg,?oral,?25?mg?once?a day ?Novolin?70/30?U-100?Insulin?(insulin?nph?and?regular?h uman)??100?unit/mL?(70-30),?subQ,?25?unit?twice?a?day ?Protonix?(pantoprazole)??40?mg,?oral,?1?tablet?once a?day ?Renvela?(sevelamer?carbonate)??800?mg,?oral,?2?tablet three?times?a?day ?Xarelto?(rivaroxaban)??15?mg,?oral,?1?tablet?once a?day Adarsh?Dc,? END OF DOCUMENT
--- OUTSIDE RECORDS SUMMARY | 2024-08-03 10:51 | XMS_ITS ---
Author Name Justice Nolen MD Address Unknown Phone tel: Organization Unknown Address Unknown Phone tel: Care Team Providers Care Filler Mixer Name Role Phone Justice Nolen MD Primary Care Provider tel: Brigitte Galeano Primary Care Provider tel: ALLERGIES, ADVERSE REACTIONS Substance Reaction Severity Status metformin, [Code: ] Unassigned Active amlodipine, [Code: ] edema, muscle pain Unassigned A ctive semaglutide, [Code: ] [place] Unassigned Active IMMUNIZATIONS Vaccine Date Status Lot number Covid-19(Code: 213) February 06, 2021 Completed Covid-19(Code: 208) November 18, 1752 Completed Covid-19(Code: 208) November 18, 1752 Completed influenza(Code: 88) November 18, 1752 Completed ASSESSMENTS Data in this section may be excluded or not available. SOCIAL HISTORY Description Effective Dates Sex M (Male) VITAL SIGNS Type Value Date Height (Code: 8302-2 ) 71 ( [in_i] ) January 07, 2024 BP (Systolic) (Code: 8480-6 ) 130 ( mm[Hg] ) Fe bruary 2023 BP (Diastolic) (Code: 8462-4 ) 80 ( mm[Hg] ) F ebruary 2023 Pulse (Code: 8867-4 ) 77 ( /min ) December 202023 Oxygen Saturation (Code: 17082-6 ) 94 ( % ) January 07, 2024 Inhaled Oxygen Concentration (Code: 3150-0 ) 21 ( % ) January 07, 2024 Faces Pain Scale (Code: 17588-5 ) 0 - No Hurt ( ) January 07, 2024 PROBLEMS Data in this section may be excluded or not available. FUNCTIONAL STATUS Functional Condition Date Status Feeding: Independent January 07, 2024 Active Bathing: Independent (or in shower) January 07, 2024 Active
--- OUTSIDE RECORDS SUMMARY | 2024-08-03 10:51 | XMS_ITS ---
Author Name dAarsh Irwin Address [address] [place] [address] Phone [phone] Organization [facility] e, NA DOCUMENT DISCLAIMER Multiple document versions may exist, please be sure you review the latest version. The information in the [facility] Progress Note Document represents a providers documented clinical note containing certain health and medical information. It may not contain the complete medical history for the patient and should be independently verified. The represented time in the document is Eastern Time PROVIDER ROUNDING NOTE COMP Provider?Rounding?Note?Comp?-?Yobany?Pascual?-?Chart?#: [id number] Method?of?Interaction:?Face?to?face Date?of?Interaction:?09/06/2023 Patient?is?stable ?-?Optimal?weight?addressed?with?patient?and?staff.? ?-?Medications?and?labs?reviewed.? Patient?issues?include: slowly?improving.??-HD?mainly?for?UF,?likely?has?some&# 160;RRF.??-large?fluid?gains.??-phos?hi,?start?binders, ?steal?sx,?access?ligated.??-k?and?phos?high,?coun seled.??-doing?okay,?seen?may?5?and?12.??-05/01&#16 0;and?16,?a?fib,?to?see?ep,?stop?losartan.??-05/24,& #160;stable?tx?and?labs.??-08/09,?stable?for?most?part.& #160;?-09/06,?stable,?k?borderline?high,?hold?veltassa?for now. Prior?Treatment:?09/04/2023? Dialyzer:?Optiflux?200NRe? Dialysate:?2.0?K,?2.5 Ca,?1.0?Mg,?100?Dextrose?(G2251)? Actual?Time:?04:30?Prescribed?Time:?4:30? Avg?BFR:?410?Avg?DFR:?760? Wt?Gain?(kg):?4.70?EDW?(kg):?136.00? post?Wt?(kg):? ADEQUACY ?spKt/V?eKdrt/V?OLC?(Del)?spKtv?1.41?08/23/23 ???1.32 ?08/23/23 ???1.33?09/04/23 ???1.47?07/29/23 ???1.31 ?06/19/23 ???1.53?09/02/23 ???1.44?06/19/23 ???1.37 ?05/22/23 ???1.43?08/30/23 ?URR?Potassium,?Serum?&#160 ;?Bicarbonate?Creatinine?%?mEq/L?mEq/L?&#16 0;?mg/dL ? ----
--- OUTSIDE RECORDS SUMMARY | 2024-08-03 10:51 | XMS_ITS ---
Author Name Adarsh Irwin Address [address] [place] [address] Phone [phone] Organization [facility] e, NA DOCUMENT DISCLAIMER Multiple document versions may exist, please be sure you review the latest version. The information in the [facility] Progress Note Document represents a providers documented clinical note containing certain health and medical information. It may not contain the complete medical history for the patient and should be independently verified. The represented time in the document is Eastern Time PROVIDER ROUNDING NOTE BASIC Provider?Rounding?Note?Basic?-?Yobany?Pascual?-?Chart?#: [id number] Method?of?Interaction:?Face?to?face Date?of?Interaction:?09/13/2023 Patient?is?stable ?-?Patient?issues?include:? Patient?issues?include: doing?better.??DC?midodrine.??-large?fluid?gains.? -stable. Prior?Treatment:?09/11/2023? Dialyzer:?Optiflux?200NRe? Dialysate:?2.0?K,?2.5 Ca,?1.0?Mg,?100?Dextrose?(G2251)? Actual?Time:?04:30?Prescribed?Time:?4:30? Avg?BFR:?500?Avg?DFR:?790? Wt?Gain?(kg):?3.70?EDW?(kg):?136.00? post?Wt?(kg):? HOME?MEDICATIONS ?allopurinol?(allopurinol)??100?mg,?oral,?4?tablet?once?a?day ?apixaban?(apixaban)??5?mg,?oral,?1?tablet?every?twelve?hours ?atorvastatin?(atorvastatin)??40?mg,?oral,?1?tablet?once?a?day ?cyanocobalamin?(vitamin?B-12)?(cyanocobalamin?(vitamin?b-12))?&# 160;500?mcg,?oral,?1?tablet?once?a?day ?escitalopram?oxalate?(escitalopram?oxalate)??10?mg,?oral,&# 160;1?tablet?once?a?day??[for?depression] ?iron?(ferrous?sulfate)??325?mg?(65?mg?iron),?oral,?1?mg?once?a?day ?levothyroxine?(levothyroxine)??25?mcg,?oral,?1?tablet?once?a?day ?Miralax?(polyethylene?glycol?3350)??17?gram,?oral,?1 packet?once?a?day ?Protonix?(pantoprazole)??40?mg,?oral,?1?tablet?once a?day ?Renvela?(sevelamer?carbonate)??800?mg,?oral,?2?tablet three?times?a?day Adarsh?Dc,? END OF DOCUMENT
--- OUTSIDE RECORDS SUMMARY | 2024-08-03 10:51 | XMS_ITS ---
Author Name Adarsh Irwin Address [address] [place] [address] Phone [phone] Organization [facility], NA DOCUMENT DISCLAIMER Multiple document versions may exist, please be sure you review the latest version. The information in the [facility] Progress Note Document represents a providers documented clinical note containing certain health and medical information. It may not contain the complete medical history for the patient and should be independently verified. The represented time in the document is Eastern Time PROVIDER ROUNDING NOTE COMP HD PROVIDER?ROUNDING?NOTE?COMP?HD Clinic:?[address] [place] [address]?[facility] Visit?date:?05/04/2022?00:00?Modality/setting:?IHD Yobany?Pascual?-?Chart?#:?[id number] Method?of?Interaction:?Via?Telehealth Reason:?Other Date?of?Interaction:?07/03/2024 ?-?Patient?is?stable ?-?Medications?and?labs?reviewed. Patient?issues?include: slowly?improving.??-HD?mainly?for?UF,?likely?has?some&# 160;RRF.??-large?fluid?gains.? -phos?hi,?start?binders,?steal?sx,?access?ligated.??-k& #160;and?phos?high,?counseled. -doing?okay,?seen?may?5?and?12.??-05/01?and?16,&#16 0;a?fib,?to?see?ep,?stop?losartan.? -05/24,?stable?tx?and?labs.??-08/09,?stable?for?most?part.??-09/06,?stable,?k borderline?high,?hold?veltassa?for?now.??-11/01,?avf?clotting,?no?success, multiple?failed?attempts.??-12/06,?still?with?access?problems,?using?AVF, otherwise?stable.??-01/16,?recent?admit,?influenza,?resp?failure,?phos?is?high, counseled.??-04/10,?about?the?same.??-07/03,?doing?okay. Prior?Treatment:?07/01/2024? Dialyzer:?Optiflux?250NRe? Dialysate:?2.0?K,?2.5 Ca,?1.0?Mg,?100?Dextrose?(G2251)? Prescribed?Time:?4:30?Avg?BFR:?400?Wt?Gain (kg):?3.30? Actual?Time:?04:30?Avg?DFR:?700?&#16 0;EDW?(kg):?132.20? Adequacy ?spKt/V?eKdrt/V?&#160 ; ???OLC?(Del)?spKtv?URR?%?1.36?06/03/24?? ?1.27?06/03/24?? ?1.64?0 07/01/24?? ?68?06/03/24? ?1.48?05/06/24?? ?1.40?05/06/24?? ?1.48?0 06/29/24?? ?71?05/06/24? ?1.20?04/13/24?? ?1.12?04/13/24?? ?0.90?0 06/26/24?? ?63?05
--- OUTSIDE RECORDS SUMMARY | 2024-08-03 10:51 | XMS_ITS ---
Author Name Ivana Wilder Address [address] [place] [address] Phone [phone] Organization [facility] e, NA DOCUMENT DISCLAIMER Multiple document versions may exist, please be sure you review the latest version. The information in the [facility] Progress Note Document represents a providers documented clinical note containing certain health and medical information. It may not contain the complete medical history for the patient and should be independently verified. The represented time in the document is Eastern Time PROVIDER ROUNDING NOTE BASIC HD PROVIDER?ROUNDING?NOTE?BASIC?HD Clinic:?[address] [place] [address]?[facility] Visit?date:?05/04/2022?00:00?Modality/setting:?IHD Yobany?Pascual?-?Chart?#:?[id number] Method?of?Interaction:?Face?to?face Date?of?Interaction:?07/01/2024 ?-?Patient?is?stable ?-?Medications?and?labs?reviewed. Patient?issues?include: Late?entry,?Pt?denies?c/o?SOB?and?cramping?while?on dialysis.?Tolerating dialysis?without?difficulty.?Patient?education?on?fluid?management?between?tx's. WCTM. Prior?Treatment:?07/06/2024? Dialyzer:?Optiflux?250NRe? Dialysate:?2.0?K,?2.5 Ca,?1.0?Mg,?100?Dextrose?(G2251)? Prescribed?Time:?4:30? Actual?Time:?04:30? Avg?BFR:?400? Avg?DFR:?600? Wt?Gain?(kg):?3.90? EDW?(kg):?132.20? Home?Medications ?allopurinol?(allopurinol) 100?mg,?oral,?4?tablet?once?a?day ??apixaban?(apixaban) 5?mg,?oral,?1?tablet?every?twelve?hours ??atorvastatin?(atorvastatin) 40?mg,?oral,?1?tablet?once?a?day ??cyanocobalamin?(vitamin?B-12)?(cyanocobalamin?(vitamin?b-12)) 500?mcg,?oral,?1?tablet?once?a?day ??escitalopram?oxalate?(escitalopram?oxalate) 10?mg,?oral,?1?tablet?once?a?day [for?depression] ??iron?(ferrous?sulfate) 325?mg?(65?mg?iron),?oral,?1?mg?once?a?day ??levothyroxine?(levothyroxine) 25?mcg,?oral,?1?tablet?once?a?day ??Protonix?(pantoprazole) 40?mg,?oral,?1?tablet?once?a?day ??Renvela?(sevelamer?carbonate) 800?mg,?oral,?3?tablet?three?times?a?day ??trazodone?(trazodone) 50?mg,?oral,?1?tablet Ivana?A?Meño,?ITALIAN TE[employer] END OF DOCUMENT
--- OUTSIDE RECORDS SUMMARY | 2024-08-03 10:51 | XMS_ITS ---
Author Name Ivana Wilder Address [address] [place] [address] Phone [phone] Organization [facility] e, NA DOCUMENT DISCLAIMER Multiple document versions may exist, please be sure you review the latest version. The information in the [facility] Progress Note Document represents a providers documented clinical note containing certain health and medical information. It may not contain the complete medical history for the patient and should be independently verified. The represented time in the document is Eastern Time PROVIDER ROUNDING NOTE BASIC HD PROVIDER?ROUNDING?NOTE?BASIC?HD Clinic:?[address] [place] [address]?[facility] Visit?date:?05/04/2022?00:00?Modality/setting:?IHD Yobany?Pascual?-?Chart?#:?[id number] Method?of?Interaction:?Face?to?face Date?of?Interaction:?01/22/2024 ?-?Patient?is?stable ?-?Medications?and?labs?reviewed. Patient?issues?include: Late?entry,?Pt?denies?c/o?SOB?and?cramping?while?on dialysis.?Tolerating dialysis?without?difficulty.?Patient?education?on?fluid?management?between?tx's. Not?meeting?EDW.?WCTM. Prior?Treatment:?02/05/2024? Dialyzer:?Optiflux?200NRe? Dialysate:?2.0?K,?2.5 Ca,?1.0?Mg,?100?Dextrose?(G2251)? Prescribed?Time:?4:30? Actual?Time:?04:30? Avg?BFR:?450? Avg?DFR:?770? Wt?Gain?(kg):?3.30? EDW?(kg):?132.00? Home?Medications ?allopurinol?(allopurinol) 100?mg,?oral,?4?tablet?once?a?day ??apixaban?(apixaban) 5?mg,?oral,?1?tablet?every?twelve?hours ??atorvastatin?(atorvastatin) 40?mg,?oral,?1?tablet?once?a?day ??Coreg?(carvedilol) 6.25?mg,?oral,?1?tablet?twice?a?day ??cyanocobalamin?(vitamin?B-12)?(cyanocobalamin?(vitamin?b-12)) 500?mcg,?oral,?1?tablet?once?a?day ??digoxin?(digoxin) 125?mcg?(0.125?mg),?oral,?1?tablet?three?times?a?week [take?on?-W-] ??escitalopram?oxalate?(escitalopram?oxalate) 10?mg,?oral,?1?tablet?once?a?day [for?depression] ??iron?(ferrous?sulfate) 325?mg?(65?mg?iron),?oral,?1?mg?once?a?day ??levothyroxine?(levothyroxine) 25?mcg,?oral,?1?tablet?once?a?day ??Miralax?(polyethylene?glycol?3350) 17?gram,?oral,?1?packet?once?a?day ??Protonix?(pantoprazole) 40?mg,?oral,?1?tablet?once?a?day ??Renvela?(sevelamer?carbonate) 800?mg,?oral,?2?tablet?three?times?a?day ??trazodone?(trazodone) 50?mg,?oral,?1?tablet Ivana?A?Meño,?[employer]LEX[employer] MACHINING SYSTEM MACHINIST END OF DOCUMENT
--- OUTSIDE RECORDS SUMMARY | 2024-08-03 10:51 | XMS_ITS ---
Author Name Esmer Grant NP Address Unknown Phone tel: Organization Unknown Address Unknown Phone tel: Care Team Providers Care Product Management Manager Name Role Phone Jasmina Grant NP Primary Care Provider tel: Brigitte Galeano Primary [...] HISTORY Description Effective Dates Sex M (Male) PROBLEMS Data in this section may be excluded or not available. Patient Care Teams * Care Product Management Manager Role on Team Date Mitchell. Jasmina Briggs
--- OUTSIDE RECORDS SUMMARY | 2024-08-03 10:51 | XMS_ITS ---
Author Name Esmer Grant NP Address Unknown Phone tel: Organization Unknown Address Unknown Phone tel: Care Team Providers Care Veterinary Milk Specialist Name Role Phone Jasmina Grant NP Primary Care Provider tel: Brigitte Galeano Primary Care Provider tel: ALLERGIES, ADVERSE REACTIONS Data in this section may be excluded or not available. IMMUNIZATIONS Vaccine Date Status Lot number Covid-19(Code: 213) February 06, 2021 Completed Covid-19(Code: 208) November 18, 1752 Completed Covid-19(Code: 208) November 18, 1752 Completed influenza(Code: 88) November 18, 1752 Completed ASSESSMENTS Data in this section may be excluded or not available. SOCIAL HISTORY Description Effective Dates Sex M (Male) VITAL SIGNS Type Value Date BP (Systolic) (Code: 8480-6 ) 130 ( mm[Hg] ) Ja nuary 2022 BP (Diastolic) (Code: 8462-4 ) 58 ( mm[Hg] ) J anuary 2022 Pulse (Code: 8867-4 ) 53 ( /min ) November Oxygen Saturation (Code: 74871-4 ) 97 ( % ) December 11, 2022 Temperature (Code: 8310-5 ) 97.9 ( [degF] ) 2022 Respiration (Code: 9279-1 ) 22 ( /min ) 2022 PROBLEMS Data in this section may be excluded or not available. Patient Care Teams * Care Veterinary Milk Specialist Role on Team Date Mitchell. Jasmina Briggs
--- OUTSIDE RECORDS SUMMARY | 2024-08-03 10:51 | XMS_ITS ---
Author Name Adarsh Irwin Address [address] [place] [address] Phone [phone] Organization [facility] e, NA DOCUMENT DISCLAIMER Multiple document versions may exist, please be sure you review the latest version. The information in the [facility] Progress Note Document represents a providers documented clinical note containing certain health and medical information. It may not contain the complete medical history for the patient and should be independently verified. The represented time in the document is Eastern Time PROVIDER ROUNDING NOTE COMP Provider?Rounding?Note?Comp?-?Yobany?Pascual?-?Chart?#: [id number] Patient?was?seen?on:?01/25/2023 Was?Patient?seen?today?:?01/25/2023 Method?of?Interaction:?Face?to?face Date?of?Interaction:?01/25/2023 Patient?is?stable ?-?Medications?and?labs?reviewed.? Patient?issues?include: slowly?improving.??-HD?mainly?for?UF,?likely?has?some&# 160;RRF.??-large?fluid?gains.??-phos?hi,?start?binders, ?steal?sx,?access?ligated.??-k?and?phos?high,?counseled. Prior?Treatment:?01/23/2023? Dialyzer:?Optiflux?200NRe? Dialysate:?2.0?K,?2.5 Ca,?1.0?Mg,?100?Dextrose?(G2251)? Actual?Time:?04:30?Prescribed?Time:?4:30? Avg?BFR:?490?Avg?DFR:?800? Wt?Gain?(kg):?4.80?EDW?(kg):?138.50? post?Wt?(kg):? VITALS ?Date:?Temperature:?Pulse:?Respirations:?BP?(Sitting):?BP?(Standing):?Weight:? Volume?Management?Comments ADEQUACY ?spKt/V?eKdrt/V?OLC?(Del)?spKtv?1.43?01/16/23 ???1.37 ?01/16/23 ???1.37?01/23/23 ???1.35?01/14/23 ???1.24 ?01/14/23 ???1.31?01/21/23 ???1.23?01/02/23 ???1.15 ?01/02/23 ???1.34?01/18/23 ?URR?Potassium,?Serum?&#160 ;?Bicarbonate?Creatinine?%?mEq/L?mEq/L?&#16 0;?mg/dL ?
--- OUTSIDE RECORDS SUMMARY | 2024-08-03 10:51 | XMS_ITS ---
Author Name Ivana Wilder Address [address] [place] [address] Phone [phone] Organization [facility] e, NA DOCUMENT DISCLAIMER Multiple document versions may exist, please be sure you review the latest version. The information in the [facility] Progress Note Document represents a providers documented clinical note containing certain health and medical information. It may not contain the complete medical history for the patient and should be independently verified. The represented time in the document is Eastern Time PROVIDER ROUNDING NOTE BASIC HD PROVIDER?ROUNDING?NOTE?BASIC?HD Clinic:?[address] [place] [address]?[facility] Visit?date:?05/04/2022?00:00?Modality/setting:?IHD Yobany?Pascual?-?Chart?#:?[id number] Method?of?Interaction:?Face?to?face Date?of?Interaction:?03/30/2024 ?-?Patient?is?stable ?-?High?blood?pressure?noted. ?-?Medications?and?labs?reviewed. Patient?issues?include: Late?entry,?Pt?denies?c/o?SOB?and?cramping?while?on dialysis.?Tolerating dialysis?without?difficulty.?Patient?education?on?fluid?management?between?tx's. WCTM. Prior?Treatment:?04/06/2024? Dialyzer:?Optiflux?200NRe? Dialysate:?2.0?K,?2.5 Ca,?1.0?Mg,?100?Dextrose?(G2251)? Prescribed?Time:?4:30? Actual?Time:?04:30? Avg?BFR:?440? Avg?DFR:?800? Wt?Gain?(kg):?4.60? EDW?(kg):?135.00? Home?Medications ?allopurinol?(allopurinol) 100?mg,?oral,?4?tablet?once?a?day ??apixaban?(apixaban) 5?mg,?oral,?1?tablet?every?twelve?hours ??atorvastatin?(atorvastatin) 40?mg,?oral,?1?tablet?once?a?day ??Coreg?(carvedilol) 6.25?mg,?oral,?1?tablet?twice?a?day ??cyanocobalamin?(vitamin?B-12)?(cyanocobalamin?(vitamin?b-12)) 500?mcg,?oral,?1?tablet?once?a?day ??digoxin?(digoxin) 125?mcg?(0.125?mg),?oral,?1?tablet?three?times?a?week [take?on?-W-] ??escitalopram?oxalate?(escitalopram?oxalate) 10?mg,?oral,?1?tablet?once?a?day [for?depression] ??iron?(ferrous?sulfate) 325?mg?(65?mg?iron),?oral,?1?mg?once?a?day ??levothyroxine?(levothyroxine) 25?mcg,?oral,?1?tablet?once?a?day ??Miralax?(polyethylene?glycol?3350) 17?gram,?oral,?1?packet?once?a?day ??Protonix?(pantoprazole) 40?mg,?oral,?1?tablet?once?a?day ??Renvela?(sevelamer?carbonate) 800?mg,?oral,?2?tablet?three?times?a?day ??trazodone?(trazodone) 50?mg,?oral,?1?tablet Ivana?A?Meño,?[employer] END OF DOCUMENT
--- OUTSIDE RECORDS SUMMARY | 2024-08-03 10:51 | XMS_ITS ---
Author Name Kayla Liu NP Address Unknown Phone tel: Organization Unknown Address Unknown Phone tel: Care Team Providers Care Electronic Tester Name Role Phone Kayla Liu NP Primary Care Provider tel: Brigitte Galeano [...] (Code: 8302-2 ) 71 ( [in_i] ) November 08, 2022 Weight (Code: 77750-8 ) 312 ( [lb_av] ) November 08, 2022 BP (Systolic) (Code: 8480-6 ) 122 ( mm[Hg] ) De cember 2021 BP (Diastolic) (Code: 8462-4 ) 64 ( mm[Hg] ) D ecember 2021 Pulse (Code: 8867-4 ) 78 ( /min ) October 192021 Oxygen Saturation (Code: 39691-7 ) 98 ( % ) November 08, 2022 BMI (Code: 56631-3 ) 43.5 ( kg/m2 ) October Temperature (Code: 8310-5 ) 97.3 ( [degF] ) Dece mber 2021 Respiration (Code: 9279-1 ) 18 ( /min ) Dece mber 2021 Blood Sugar (Code: 2339-0 ) 114 ( mg/dL ) Dece mber 2021 PROBLEMS Data in this section may be excluded or not available. Patient Care Teams * Care Electronic Tester Role on Team Date Varady. Kayla Briggs
--- OUTSIDE RECORDS SUMMARY | 2024-08-03 10:51 | XMS_ITS ---
Author Name Ivana Wilder Address [address] [place] [address] Phone [phone] Organization [facility] e, NA DOCUMENT DISCLAIMER Multiple document versions may exist, please be sure you review the latest version. The information in the [facility] Progress Note Document represents a providers documented clinical note containing certain health and medical information. It may not contain the complete medical history for the patient and should be independently verified. The represented time in the document is Eastern Time PROVIDER ROUNDING NOTE BASIC HD PROVIDER?ROUNDING?NOTE?BASIC?HD Clinic:?[address] [place] [address]?[facility] Visit?date:?05/04/2022?00:00?Modality/setting:?IHD Yobany?Pascual?-?Chart?#:?[id number] Method?of?Interaction:?Face?to?face Date?of?Interaction:?12/04/2023 ?-?Patient?is?stable ?-?Medications?and?labs?reviewed. Patient?issues?include: Late?entry,?Pt?denies?c/o?SOB?and?cramping?while?on dialysis.?Tolerating dialysis?without?difficulty.?Patient?education?on?fluid?management?between?tx's. Not?meeting?EDW.?WCTM. Prior?Treatment:?12/13/2023? Dialyzer:?Optiflux?200NRe? Dialysate:?2.0?K,?2.5 Ca,?1.0?Mg,?100?Dextrose?(G2251)? Prescribed?Time:?4:30? Actual?Time:?04:30? Avg?BFR:?450? Avg?DFR:?700? Wt?Gain?(kg):?5.20? EDW?(kg):?136.00? Home?Medications ?allopurinol?(allopurinol) 100?mg,?oral,?4?tablet?once?a?day ??apixaban?(apixaban) 5?mg,?oral,?1?tablet?every?twelve?hours ??atorvastatin?(atorvastatin) 40?mg,?oral,?1?tablet?once?a?day ??cyanocobalamin?(vitamin?B-12)?(cyanocobalamin?(vitamin?b-12)) 500?mcg,?oral,?1?tablet?once?a?day ??digoxin?(digoxin) 125?mcg?(0.125?mg),?oral,?1?tablet?three?times?a?week [take?on?-W-] ??escitalopram?oxalate?(escitalopram?oxalate) 10?mg,?oral,?1?tablet?once?a?day [for?depression] ??iron?(ferrous?sulfate) 325?mg?(65?mg?iron),?oral,?1?mg?once?a?day ??levothyroxine?(levothyroxine) 25?mcg,?oral,?1?tablet?once?a?day ??Miralax?(polyethylene?glycol?3350) 17?gram,?oral,?1?packet?once?a?day ??Protonix?(pantoprazole) 40?mg,?oral,?1?tablet?once?a?day ??Renvela?(sevelamer?carbonate) 800?mg,?oral,?2?tablet?three?times?a?day Ivana?A?Meño,?SONJA END OF DOCUMENT
--- OUTSIDE RECORDS SUMMARY | 2024-08-03 10:51 | XMS_ITS ---
Author Name Ivana Wilder Address [address] [place] [address] Phone [phone] Organization [facility] e, NA DOCUMENT DISCLAIMER Multiple document versions may exist, please be sure you review the latest version. The information in the [facility] Progress Note Document represents a providers documented clinical note containing certain health and medical information. It may not contain the complete medical history for the patient and should be independently verified. The represented time in the document is Eastern Time PROVIDER ROUNDING NOTE BASIC HD PROVIDER?ROUNDING?NOTE?BASIC?HD Clinic:?[address] [place] [address]?[facility] Visit?date:?05/04/2022?00:00?Modality/setting:?IHD Yobany?Pascual?-?Chart?#:?[id number] Method?of?Interaction:?Face?to?face Date?of?Interaction:?11/06/2023 ?-?Patient?is?stable ?-?Medications?and?labs?reviewed. Patient?issues?include: Late?entry,?Pt?denies?c/o?SOB?and?cramping?while?on dialysis.?Tolerating dialysis?without?difficulty.?Patient?education?on?fluid?management?between?tx's. Not?meeting?EDW.?WCTM. Prior?Treatment:?11/15/2023? Dialyzer:?Optiflux?200NRe? Dialysate:?2.0?K,?2.5 Ca,?1.0?Mg,?100?Dextrose?(G2251)? Prescribed?Time:?4:30? Actual?Time:?04:30? Avg?BFR:?450? Avg?DFR:?700? Wt?Gain?(kg):?4.60? EDW?(kg):?136.00? Home?Medications ?allopurinol?(allopurinol) ?100?mg,?oral,?4?tablet?once?a?day ?apixaban?(apixaban) ?5?mg,?oral,?1?tablet?every?twelve?hours ?atorvastatin?(atorvastatin) ?40?mg,?oral,?1?tablet?once?a?day ?cyanocobalamin?(vitamin?B-12)?(cyanocobalamin?(vitamin?b-12)) ?500?mcg,?oral,?1?tablet?once?a?day ?digoxin?(digoxin) ?125?mcg?(0.125?mg),?oral,?1?tablet?three?times?a week ?[take?on?-W-] ?escitalopram?oxalate?(escitalopram?oxalate) ?10?mg,?oral,?1?tablet?once?a?day ?[for?depression] ?iron?(ferrous?sulfate) ?325?mg?(65?mg?iron),?oral,?1?mg?once?a?day ?levothyroxine?(levothyroxine) ?25?mcg,?oral,?1?tablet?once?a?day ?Miralax?(polyethylene?glycol?3350) ?17?gram,?oral,?1?packet?once?a?day ?Protonix?(pantoprazole) ?40?mg,?oral,?1?tablet?once?a?day ?Renvela?(sevelamer?carbonate) ?800?mg,?oral,?2?tablet?three?times?a?day Ivana?A?Meño,?[employer] END OF DOCUMENT
--- OUTSIDE RECORDS SUMMARY | 2024-08-03 10:51 | XMS_ITS ---
Author Name Rudy CASILLAS [place] Address Unknown Phone tel: Organization Unknown Address Unknown Phone tel: Care Team Providers [employer] Name Role Phone Jasmina Grant NP Primary [...] [id number] ) 71 ( [in_i] ) January 29, 2023 Weight (Code: 02401-2 ) 305.8 ( [lb_av] ) January 29, 2023 BP (Systolic) (Code: 8480-6 ) 110 ( mm[Hg] ) [facility] 2022 BP (Diastolic) (Code: 8462-4 ) 58 ( mm[Hg] ) [facility] 2022 Pulse (Code: 8867-4 ) 56 ( /min ) January 29, 2023 Oxygen Saturation (Code: 90624-2 ) 92 ( % ) January 29, 2023 Inhaled Oxygen Concentration (Code: 3150-0 ) 21 ( % ) January 29, 2023 BMI (Code: 04488-7 ) 42.6 ( kg/m2 ) January 29 Temperature (Code: 8310-5 ) 97.3 ( [degF] ) [facility] 2022 Respiration (Code: 9279-1 ) 34 ( /min ) [facility] 2022 PROBLEMS Data in this section may be excluded or not available. FUNCTIONAL STATUS Functional Condition Date Status Feeding: Independent January 29, 2023 Active Bathing: Independent (or in shower) January 29 Active Grooming: In
--- OUTSIDE RECORDS SUMMARY | 2024-08-03 10:51 | XMS_ITS ---
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 Jasmina Briggs
--- OUTSIDE RECORDS SUMMARY | 2024-08-03 10:51 | XMS_ITS ---
Author Name Ivana Wilder Address [address] [place] [address] Phone [phone] Organization [facility] e, NA DOCUMENT DISCLAIMER Multiple document versions may exist, please be sure you review the latest version. The information in the [facility] Progress Note Document represents a providers documented clinical note containing certain health and medical information. It may not contain the complete medical history for the patient and should be independently verified. The represented time in the document is Eastern Time PROVIDER ROUNDING NOTE BASIC HD PROVIDER?ROUNDING?NOTE?BASIC?HD Clinic:?[address] [place] [address]?[facility] Visit?date:?05/04/2022?00:00?Modality/setting:?IHD Yobany?Pascual?-?Chart?#:?[id number] Method?of?Interaction:?Face?to?face Date?of?Interaction:?10/21/2023 ?-?Patient?is?stable ?-?Medications?and?labs?reviewed. Patient?issues?include: Late?entry,?Pt?denies?c/o?SOB?and?cramping?while?on dialysis.?Tolerating dialysis?without?difficulty.?Patient?education?on?fluid?management?between?tx's. Not?meeting?EDW.?WCTM. Prior?Treatment:?11/01/2023? Dialyzer:?Optiflux?200NRe? Dialysate:?2.0?K,?2.5 Ca,?1.0?Mg,?100?Dextrose?(G2251)? Prescribed?Time:?4:30? Actual?Time:?04:30? Avg?BFR:?450? Avg?DFR:?700? Wt?Gain?(kg):?4.80? EDW?(kg):?136.00? Home?Medications ?allopurinol?(allopurinol) ?100?mg,?oral,?4?tablet?once?a?day ?apixaban?(apixaban) ?5?mg,?oral,?1?tablet?every?twelve?hours ?atorvastatin?(atorvastatin) ?40?mg,?oral,?1?tablet?once?a?day ?cyanocobalamin?(vitamin?B-12)?(cyanocobalamin?(vitamin?b-12)) ?500?mcg,?oral,?1?tablet?once?a?day ?digoxin?(digoxin) ?125?mcg?(0.125?mg),?oral,?1?tablet?three?times?a week ?[take?on?-W-] ?escitalopram?oxalate?(escitalopram?oxalate) ?10?mg,?oral,?1?tablet?once?a?day ?[for?depression] ?iron?(ferrous?sulfate) ?325?mg?(65?mg?iron),?oral,?1?mg?once?a?day ?levothyroxine?(levothyroxine) ?25?mcg,?oral,?1?tablet?once?a?day ?Miralax?(polyethylene?glycol?3350) ?17?gram,?oral,?1?packet?once?a?day ?Protonix?(pantoprazole) ?40?mg,?oral,?1?tablet?once?a?day ?Renvela?(sevelamer?carbonate) ?800?mg,?oral,?2?tablet?three?times?a?day Ivana?A?Meño,?SAIL REPAIR PERSON END OF DOCUMENT
--- OUTSIDE RECORDS SUMMARY | 2024-08-03 10:51 | XMS_ITS ---
Author Name Ivana Wilder Address [address] [place] [address] Phone [phone] Organization [facility] e, NA DOCUMENT DISCLAIMER Multiple document versions may exist, please be sure you review the latest version. The information in the [facility] Progress Note Document represents a providers documented clinical note containing certain health and medical information. It may not contain the complete medical history for the patient and should be independently verified. The represented time in the document is Eastern Time PROVIDER ROUNDING NOTE BASIC HD PROVIDER?ROUNDING?NOTE?BASIC?HD Clinic:?[address] [place] [address]?[facility] Visit?date:?05/04/2022?00:00?Modality/setting:?IHD Yobany?Pascual?-?Chart?#:?[id number] Method?of?Interaction:?Face?to?face Date?of?Interaction:?09/27/2023 Patient?is?stable ?-?High?blood?pressure?noted. ?-?Medications?and?labs?reviewed. Patient?issues?include: Late?entry,?Pt?denies?c/o?SOB?and?cramping?while?on&#16 0;dialysis.?Tolerating?dialysis?without?difficulty.?Patient?education& #160;on?fluid?management?between?tx's.?Not?meeting?EDW.?WCTM. Prior?Treatment:?10/02/2023? Dialyzer:?Optiflux?200NRe? Dialysate:?2.0?K,?2.5 Ca,?1.0?Mg,?100?Dextrose?(G2251)? Actual?Time:?04:23?Prescribed?Time:?4:30? Avg?BFR:?450?Avg?DFR:?700? Wt?Gain?(kg):?3.80?EDW?(kg):?136.00? Home?Medications ?allopurinol?(allopurinol) ?100?mg,?oral,?4?tablet?once?a?day ?apixaban?(apixaban) ?5?mg,?oral,?1?tablet?every?twelve?hours ?atorvastatin?(atorvastatin) ?40?mg,?oral,?1?tablet?once?a?day ?cyanocobalamin?(vitamin?B-12)?(cyanocobalamin?(vitamin?b-12)) ?500?mcg,?oral,?1?tablet?once?a?day ?digoxin?(digoxin) ?125?mcg?(0.125?mg),?oral,?1?tablet?three?times?a week ?[take?on?M-W-F] ?escitalopram?oxalate?(escitalopram?oxalate) ?10?mg,?oral,?1?tablet?once?a?day ?[for?depression] ?iron?(ferrous?sulfate) ?325?mg?(65?mg?iron),?oral,?1?mg?once?a?day ?levothyroxine?(levothyroxine) ?25?mcg,?oral,?1?tablet?once?a?day ?Miralax?(polyethylene?glycol?3350) ?17?gram,?oral,?1?packet?once?a?day ?Protonix?(pantoprazole) ?40?mg,?oral,?1?tablet?once?a?day ?Renvela?(sevelamer?carbonate) ?800?mg,?oral,?2?tablet?three?times?a?day Ivana?A?Meño,?SCRIPT READER END OF DOCUMENT
--- OUTSIDE RECORDS SUMMARY | 2024-08-03 10:51 | XMS_ITS ---
Author Name Ivana Wilder Address [address] [place] [address] Phone [phone] Organization [facility] e, NA DOCUMENT DISCLAIMER Multiple document versions may exist, please be sure you review the latest version. The information in the [facility] Progress Note Document represents a providers documented clinical note containing certain health and medical information. It may not contain the complete medical history for the patient and should be independently verified. The represented time in the document is Eastern Time PROVIDER ROUNDING NOTE BASIC HD PROVIDER?ROUNDING?NOTE?BASIC?HD Clinic:?[address] [place] [address]?[facility] Visit?date:?05/04/2022?00:00?Modality/setting:?IHD Yobany?Pascual?-?Chart?#:?[id number] Method?of?Interaction:?Face?to?face Date?of?Interaction:?04/27/2024 ?-?Patient?is?stable ?-?Medications?and?labs?reviewed. Patient?issues?include: Late?entry,?Pt?denies?c/o?SOB?and?cramping?while?on dialysis.?Tolerating dialysis?without?difficulty.?Patient?education?on?fluid?management?between?tx's. WCTM. Prior?Treatment:?05/11/2024? Dialyzer:?Optiflux?250NRe? Dialysate:?2.0?K,?2.5 Ca,?1.0?Mg,?100?Dextrose?(G2251)? Prescribed?Time:?4:30? Actual?Time:?04:30? Avg?BFR:?460? Avg?DFR:?700? Wt?Gain?(kg):?3.40? EDW?(kg):?135.00? Home?Medications ?allopurinol?(allopurinol) 100?mg,?oral,?4?tablet?once?a?day ??apixaban?(apixaban) 5?mg,?oral,?1?tablet?every?twelve?hours ??atorvastatin?(atorvastatin) 40?mg,?oral,?1?tablet?once?a?day ??Coreg?(carvedilol) 6.25?mg,?oral,?1?tablet?twice?a?day ??cyanocobalamin?(vitamin?B-12)?(cyanocobalamin?(vitamin?b-12)) 500?mcg,?oral,?1?tablet?once?a?day ??escitalopram?oxalate?(escitalopram?oxalate) 10?mg,?oral,?1?tablet?once?a?day [for?depression] ??iron?(ferrous?sulfate) 325?mg?(65?mg?iron),?oral,?1?mg?once?a?day ??levothyroxine?(levothyroxine) 25?mcg,?oral,?1?tablet?once?a?day ??Protonix?(pantoprazole) 40?mg,?oral,?1?tablet?once?a?day ??Renvela?(sevelamer?carbonate) 800?mg,?oral,?3?tablet?three?times?a?day ??trazodone?(trazodone) 50?mg,?oral,?1?tablet Ivana?A?Meño,?SUPERINTENDENT COLLIERY END OF DOCUMENT
--- OUTSIDE RECORDS SUMMARY | 2024-08-03 10:51 | XMS_ITS ---
Author Name Adarsh Irwin Address [address] [place] [id number] Phone [phone] Organization [facility] e, NA DOCUMENT DISCLAIMER Multiple document versions may exist, please be sure you review the latest version. The information in the [facility] Progress Note Document represents a providers documented clinical note containing certain health and medical information. It may not contain the complete medical history for the patient and should be independently verified. The represented time in the document is Eastern Time PROVIDER ROUNDING NOTE COMP Provider?Rounding?Note?Comp?-?Yobany?Pascual?-?Chart?#: [id number] Method?of?Interaction:?Face?to?face Date?of?Interaction:?05/24/2023 Patient?is?stable ?-?Medications?and?labs?reviewed.? Patient?issues?include: slowly?improving.??-HD?mainly?for?UF,?likely?has?some&# 160;RRF.??-large?fluid?gains.??-phos?hi,?start?binders, ?steal?sx,?access?ligated.??-k?and?phos?high,?coun seled.??-doing?okay,?seen?may?5?and?12.??-05/01&#16 0;and?16,?a?fib,?to?see?ep,?stop?losartan.??-05/24, stable?tx?and?labs. Prior?Treatment:?05/22/2023? Dialyzer:?Optiflux?200NRe? Dialysate:?2.0?K,?2.5 Ca,?1.0?Mg,?100?Dextrose?(G2251)? Actual?Time:?04:28?Prescribed?Time:?4:30? Avg?BFR:?430?Avg?DFR:?780? Wt?Gain?(kg):?3.20?EDW?(kg):?138.00? post?Wt?(kg):? ADEQUACY ?spKt/V?eKdrt/V?OLC?(Del)?spKtv?1.40?04/24/23 ???1.29 ?04/24/23 ???1.89?05/22/23 ???1.49?03/20/23 ???1.38 ?03/20/23 ???1.63?05/20/23 ???1.46?03/06/23 ???1.40 ?03/06/23 ???1.85?05/17/23 ?URR?Potassium,?Serum?&#160 ;?Bicarbonate?Creatinine?%?mEq/L?mEq/L?&#16 0;?mg/dL ?70?04/24/23 ?? 5.7?05/08/23 ???23?
--- OUTSIDE RECORDS SUMMARY | 2024-08-03 10:51 | XMS_ITS ---
Author Name Ivana Wilder Address [address] [place] [address] Phone [phone] Organization [facility] e, NA DOCUMENT DISCLAIMER Multiple document versions may exist, please be sure you review the latest version. The information in the [facility] Progress Note Document represents a providers documented clinical note containing certain health and medical information. It may not contain the complete medical history for the patient and should be independently verified. The represented time in the document is Eastern Time PROVIDER ROUNDING NOTE BASIC HD PROVIDER?ROUNDING?NOTE?BASIC?HD Clinic:?[address] [place] [address]?[facility] Visit?date:?05/04/2022?00:00?Modality/setting:?IHD Yobany?Pascual?-?Chart?#:?[id number] Method?of?Interaction:?Face?to?face Date?of?Interaction:?04/06/2024 ?-?Patient?is?stable ?-?High?blood?pressure?noted. ?-?Medications?and?labs?reviewed. Patient?issues?include: Pt?denies?c/o?SOB?and?cramping?while?on?dialysis.?Tolerating?dialysis?without difficulty.?Patient?education?on?fluid?management?between?tx's. WCTM. Prior?Treatment:?04/06/2024? Dialyzer:?Optiflux?200NRe? Dialysate:?2.0?K,?2.5 Ca,?1.0?Mg,?100?Dextrose?(G2251)? Prescribed?Time:?4:30? Actual?Time:?04:30? Avg?BFR:?440? Avg?DFR:?800? Wt?Gain?(kg):?4.60? EDW?(kg):?135.00? Home?Medications ?allopurinol?(allopurinol) 100?mg,?oral,?4?tablet?once?a?day ??apixaban?(apixaban) 5?mg,?oral,?1?tablet?every?twelve?hours ??atorvastatin?(atorvastatin) 40?mg,?oral,?1?tablet?once?a?day ??Coreg?(carvedilol) 6.25?mg,?oral,?1?tablet?twice?a?day ??cyanocobalamin?(vitamin?B-12)?(cyanocobalamin?(vitamin?b-12)) 500?mcg,?oral,?1?tablet?once?a?day ??digoxin?(digoxin) 125?mcg?(0.125?mg),?oral,?1?tablet?three?times?a?week [take?on?-W-] ??escitalopram?oxalate?(escitalopram?oxalate) 10?mg,?oral,?1?tablet?once?a?day [for?depression] ??iron?(ferrous?sulfate) 325?mg?(65?mg?iron),?oral,?1?mg?once?a?day ??levothyroxine?(levothyroxine) 25?mcg,?oral,?1?tablet?once?a?day ??Miralax?(polyethylene?glycol?3350) 17?gram,?oral,?1?packet?once?a?day ??Protonix?(pantoprazole) 40?mg,?oral,?1?tablet?once?a?day ??Renvela?(sevelamer?carbonate) 800?mg,?oral,?2?tablet?three?times?a?day ??trazodone?(trazodone) 50?mg,?oral,?1?tablet Ivana?A?Meño,?TERRITORY ACCOUNT MANAGER END OF DOCUMENT
--- OUTSIDE RECORDS SUMMARY | 2024-08-03 10:51 | XMS_ITS ---
Author Name Ivana Wilder Address [address] [place] [address] Phone [phone] Organization [facility] e, NA DOCUMENT DISCLAIMER Multiple document versions may exist, please be sure you review the latest version. The information in the [facility] Progress Note Document represents a providers documented clinical note containing certain health and medical information. It may not contain the complete medical history for the patient and should be independently verified. The represented time in the document is Eastern Time PROVIDER ROUNDING NOTE BASIC HD PROVIDER?ROUNDING?NOTE?BASIC?HD Clinic:?[address] [place] [address]?[facility] Visit?date:?05/04/2022?00:00?Modality/setting:?IHD Yobany?Pascual?-?Chart?#:?[id number] Method?of?Interaction:?Face?to?face Date?of?Interaction:?11/13/2023 ?-?Patient?is?stable ?-?Medications?and?labs?reviewed. Patient?issues?include: Late?entry,?Pt?denies?c/o?SOB?and?cramping?while?on dialysis.?Tolerating dialysis?without?difficulty.?Patient?education?on?fluid?management?between?tx's. Not?meeting?EDW.?WCTM. Prior?Treatment:?11/15/2023? Dialyzer:?Optiflux?200NRe? Dialysate:?2.0?K,?2.5 Ca,?1.0?Mg,?100?Dextrose?(G2251)? Prescribed?Time:?4:30? Actual?Time:?04:30? Avg?BFR:?450? Avg?DFR:?700? Wt?Gain?(kg):?4.60? EDW?(kg):?136.00? Home?Medications ?allopurinol?(allopurinol) ?100?mg,?oral,?4?tablet?once?a?day ?apixaban?(apixaban) ?5?mg,?oral,?1?tablet?every?twelve?hours ?atorvastatin?(atorvastatin) ?40?mg,?oral,?1?tablet?once?a?day ?cyanocobalamin?(vitamin?B-12)?(cyanocobalamin?(vitamin?b-12)) ?500?mcg,?oral,?1?tablet?once?a?day ?digoxin?(digoxin) ?125?mcg?(0.125?mg),?oral,?1?tablet?three?times?a week ?[take?on?-W-] ?escitalopram?oxalate?(escitalopram?oxalate) ?10?mg,?oral,?1?tablet?once?a?day ?[for?depression] ?iron?(ferrous?sulfate) ?325?mg?(65?mg?iron),?oral,?1?mg?once?a?day ?levothyroxine?(levothyroxine) ?25?mcg,?oral,?1?tablet?once?a?day ?Miralax?(polyethylene?glycol?3350) ?17?gram,?oral,?1?packet?once?a?day ?Protonix?(pantoprazole) ?40?mg,?oral,?1?tablet?once?a?day ?Renvela?(sevelamer?carbonate) ?800?mg,?oral,?2?tablet?three?times?a?day Ivana?A?Meño,?MANAGER DESKTOP END OF DOCUMENT
--- OUTSIDE RECORDS SUMMARY | 2024-08-03 10:51 | XMS_ITS ---
Author Name Ivana Wilder Address [address] [place] [address] Phone [phone] Organization [facility] e, NA DOCUMENT DISCLAIMER Multiple document versions may exist, please be sure you review the latest version. The information in the [facility] Progress Note Document represents a providers documented clinical note containing certain health and medical information. It may not contain the complete medical history for the patient and should be independently verified. The represented time in the document is Eastern Time PROVIDER ROUNDING NOTE BASIC HD PROVIDER?ROUNDING?NOTE?BASIC?HD Clinic:?[address] [place] [address]?[facility] Visit?date:?05/04/2022?00:00?Modality/setting:?IHD Yobany?Pascual?-?Chart?#:?[id number] Method?of?Interaction:?Face?to?face Date?of?Interaction:?12/23/2023 ?-?Patient?is?stable ?-?Medications?and?labs?reviewed. Patient?issues?include: Late?entry,?Pt?denies?c/o?SOB?and?cramping?while?on dialysis.?Tolerating dialysis?without?difficulty.?Patient?education?on?fluid?management?between?tx's. Not?meeting?EDW.?WCTM. Prior?Treatment:?01/10/2024? Dialyzer:?Optiflux?200NRe? Dialysate:?2.0?K,?2.5 Ca,?1.0?Mg,?100?Dextrose?(G2251)? Prescribed?Time:?4:30? Actual?Time:?04:30? Avg?BFR:?450? Avg?DFR:?800? Wt?Gain?(kg):?2.90? EDW?(kg):?132.00? Home?Medications ?allopurinol?(allopurinol) 100?mg,?oral,?4?tablet?once?a?day ??apixaban?(apixaban) 5?mg,?oral,?1?tablet?every?twelve?hours ??atorvastatin?(atorvastatin) 40?mg,?oral,?1?tablet?once?a?day ??cyanocobalamin?(vitamin?B-12)?(cyanocobalamin?(vitamin?b-12)) 500?mcg,?oral,?1?tablet?once?a?day ??digoxin?(digoxin) 125?mcg?(0.125?mg),?oral,?1?tablet?three?times?a?week [take?on?-W-] ??escitalopram?oxalate?(escitalopram?oxalate) 10?mg,?oral,?1?tablet?once?a?day [for?depression] ??iron?(ferrous?sulfate) 325?mg?(65?mg?iron),?oral,?1?mg?once?a?day ??levothyroxine?(levothyroxine) 25?mcg,?oral,?1?tablet?once?a?day ??Miralax?(polyethylene?glycol?3350) 17?gram,?oral,?1?packet?once?a?day ??Protonix?(pantoprazole) 40?mg,?oral,?1?tablet?once?a?day ??Renvela?(sevelamer?carbonate) 800?mg,?oral,?2?tablet?three?times?a?day ??trazodone?(trazodone) 50?mg,?oral,?1?tablet Ivana?A?Meño,?SCREEN EXAMINER END OF DOCUMENT
--- OUTSIDE RECORDS SUMMARY | 2024-08-03 10:51 | XMS_ITS ---
Author Name Ivana Wilder Address [address] [place] [address] Phone [phone] Organization [facility] e, NA DOCUMENT DISCLAIMER Multiple document versions may exist, please be sure you review the latest version. The information in the [facility] Progress Note Document represents a providers documented clinical note containing certain health and medical information. It may not contain the complete medical history for the patient and should be independently verified. The represented time in the document is Eastern Time PROVIDER ROUNDING NOTE BASIC HD PROVIDER?ROUNDING?NOTE?BASIC?HD Clinic:?[address] [place] [address]?[facility] Visit?date:?05/04/2022?00:00?Modality/setting:?IHD Yobany?Pascual?-?Chart?#:?[id number] Method?of?Interaction:?Face?to?face Date?of?Interaction:?12/13/2023 ?-?Patient?is?stable ?-?Medications?and?labs?reviewed. Patient?issues?include: Late?entry,?Pt?denies?c/o?SOB?and?cramping?while?on dialysis.?Tolerating dialysis?without?difficulty.?Patient?education?on?fluid?management?between?tx's. Not?meeting?EDW.?WCTM. Prior?Treatment:?12/13/2023? Dialyzer:?Optiflux?200NRe? Dialysate:?2.0?K,?2.5 Ca,?1.0?Mg,?100?Dextrose?(G2251)? Prescribed?Time:?4:30? Actual?Time:?04:30? Avg?BFR:?450? Avg?DFR:?700? Wt?Gain?(kg):?5.20? EDW?(kg):?136.00? Home?Medications ?allopurinol?(allopurinol) 100?mg,?oral,?4?tablet?once?a?day ??apixaban?(apixaban) 5?mg,?oral,?1?tablet?every?twelve?hours ??atorvastatin?(atorvastatin) 40?mg,?oral,?1?tablet?once?a?day ??cyanocobalamin?(vitamin?B-12)?(cyanocobalamin?(vitamin?b-12)) 500?mcg,?oral,?1?tablet?once?a?day ??digoxin?(digoxin) 125?mcg?(0.125?mg),?oral,?1?tablet?three?times?a?week [take?on?-W-] ??escitalopram?oxalate?(escitalopram?oxalate) 10?mg,?oral,?1?tablet?once?a?day [for?depression] ??iron?(ferrous?sulfate) 325?mg?(65?mg?iron),?oral,?1?mg?once?a?day ??levothyroxine?(levothyroxine) 25?mcg,?oral,?1?tablet?once?a?day ??Miralax?(polyethylene?glycol?3350) 17?gram,?oral,?1?packet?once?a?day ??Protonix?(pantoprazole) 40?mg,?oral,?1?tablet?once?a?day ??Renvela?(sevelamer?carbonate) 800?mg,?oral,?2?tablet?three?times?a?day Ivana?A?Meño,?SONJA END OF DOCUMENT
--- OUTSIDE RECORDS SUMMARY | 2024-08-03 10:51 | XMS_ITS ---
Author Name Ivana Wilder Address [address] [place] [address] Phone [phone] Organization [facility] e, NA DOCUMENT DISCLAIMER Multiple document versions may exist, please be sure you review the latest version. The information in the [facility] Progress Note Document represents a providers documented clinical note containing certain health and medical information. It may not contain the complete medical history for the patient and should be independently verified. The represented time in the document is Eastern Time PROVIDER ROUNDING NOTE BASIC HD PROVIDER?ROUNDING?NOTE?BASIC?HD Clinic:?[address] [place] [address]?[facility] Visit?date:?05/04/2022?00:00?Modality/setting:?IHD Yobany?Pascual?-?Chart?#:?[id number] Method?of?Interaction:?Face?to?face Date?of?Interaction:?01/06/2024 ?-?Patient?is?stable ?-?Medications?and?labs?reviewed. Patient?issues?include: Late?entry,?Pt?denies?c/o?SOB?and?cramping?while?on dialysis.?Tolerating dialysis?without?difficulty.?Patient?education?on?fluid?management?between?tx's. Not?meeting?EDW.?WCTM. Prior?Treatment:?01/10/2024? Dialyzer:?Optiflux?200NRe? Dialysate:?2.0?K,?2.5 Ca,?1.0?Mg,?100?Dextrose?(G2251)? Prescribed?Time:?4:30? Actual?Time:?04:30? Avg?BFR:?450? Avg?DFR:?800? Wt?Gain?(kg):?2.90? EDW?(kg):?132.00? Home?Medications ?allopurinol?(allopurinol) 100?mg,?oral,?4?tablet?once?a?day ??apixaban?(apixaban) 5?mg,?oral,?1?tablet?every?twelve?hours ??atorvastatin?(atorvastatin) 40?mg,?oral,?1?tablet?once?a?day ??cyanocobalamin?(vitamin?B-12)?(cyanocobalamin?(vitamin?b-12)) 500?mcg,?oral,?1?tablet?once?a?day ??digoxin?(digoxin) 125?mcg?(0.125?mg),?oral,?1?tablet?three?times?a?week [take?on?-W-] ??escitalopram?oxalate?(escitalopram?oxalate) 10?mg,?oral,?1?tablet?once?a?day [for?depression] ??iron?(ferrous?sulfate) 325?mg?(65?mg?iron),?oral,?1?mg?once?a?day ??levothyroxine?(levothyroxine) 25?mcg,?oral,?1?tablet?once?a?day ??Miralax?(polyethylene?glycol?3350) 17?gram,?oral,?1?packet?once?a?day ??Protonix?(pantoprazole) 40?mg,?oral,?1?tablet?once?a?day ??Renvela?(sevelamer?carbonate) 800?mg,?oral,?2?tablet?three?times?a?day ??trazodone?(trazodone) 50?mg,?oral,?1?tablet Ivana?A?Meño,?REGIONAL TRANSFER LIAISON END OF DOCUMENT
--- OUTSIDE RECORDS SUMMARY | 2024-08-03 10:51 | XMS_ITS ---
Author Name Ivana Wilder Address [address] [place] [address] Phone [phone] Organization [facility] e, NA DOCUMENT DISCLAIMER Multiple document versions may exist, please be sure you review the latest version. The information in the [facility] Progress Note Document represents a providers documented clinical note containing certain health and medical information. It may not contain the complete medical history for the patient and should be independently verified. The represented time in the document is Eastern Time PROVIDER ROUNDING NOTE BASIC HD PROVIDER?ROUNDING?NOTE?BASIC?HD Clinic:?[address] [place] [address]?[facility] Visit?date:?05/04/2022?00:00?Modality/setting:?IHD Yobany?Pascual?-?Chart?#:?[id number] Method?of?Interaction:?Face?to?face Date?of?Interaction:?03/23/2024 ?-?Patient?is?stable ?-?High?blood?pressure?noted. ?-?Medications?and?labs?reviewed. Patient?issues?include: Late?entry,?Pt?denies?c/o?SOB?and?cramping?while?on dialysis.?Tolerating dialysis?without?difficulty.?Patient?education?on?fluid?management?between?tx's. WCTM. Prior?Treatment:?04/06/2024? Dialyzer:?Optiflux?200NRe? Dialysate:?2.0?K,?2.5 Ca,?1.0?Mg,?100?Dextrose?(G2251)? Prescribed?Time:?4:30? Actual?Time:?04:30? Avg?BFR:?440? Avg?DFR:?800? Wt?Gain?(kg):?4.60? EDW?(kg):?135.00? Home?Medications ?allopurinol?(allopurinol) 100?mg,?oral,?4?tablet?once?a?day ??apixaban?(apixaban) 5?mg,?oral,?1?tablet?every?twelve?hours ??atorvastatin?(atorvastatin) 40?mg,?oral,?1?tablet?once?a?day ??Coreg?(carvedilol) 6.25?mg,?oral,?1?tablet?twice?a?day ??cyanocobalamin?(vitamin?B-12)?(cyanocobalamin?(vitamin?b-12)) 500?mcg,?oral,?1?tablet?once?a?day ??digoxin?(digoxin) 125?mcg?(0.125?mg),?oral,?1?tablet?three?times?a?week [take?on?-W-] ??escitalopram?oxalate?(escitalopram?oxalate) 10?mg,?oral,?1?tablet?once?a?day [for?depression] ??iron?(ferrous?sulfate) 325?mg?(65?mg?iron),?oral,?1?mg?once?a?day ??levothyroxine?(levothyroxine) 25?mcg,?oral,?1?tablet?once?a?day ??Miralax?(polyethylene?glycol?3350) 17?gram,?oral,?1?packet?once?a?day ??Protonix?(pantoprazole) 40?mg,?oral,?1?tablet?once?a?day ??Renvela?(sevelamer?carbonate) 800?mg,?oral,?2?tablet?three?times?a?day ??trazodone?(trazodone) 50?mg,?oral,?1?tablet Ivana?A?Meño,?COLLECTION DEVELOPMENT LIBRARIAN END OF DOCUMENT
--- OUTSIDE RECORDS SUMMARY | 2024-08-03 10:51 | XMS_ITS ---
Author Name Ivana Wilder Address [address] [place] [address] Phone [phone] Organization [facility] e, NA DOCUMENT DISCLAIMER Multiple document versions may exist, please be sure you review the latest version. The information in the [facility] Progress Note Document represents a providers documented clinical note containing certain health and medical information. It may not contain the complete medical history for the patient and should be independently verified. The represented time in the document is Eastern Time PROVIDER ROUNDING NOTE BASIC HD PROVIDER?ROUNDING?NOTE?BASIC?HD Clinic:?[address] [place] [address]?[facility] Visit?date:?05/04/2022?00:00?Modality/setting:?IHD Yobany?Pascual?-?Chart?#:?[id number] Method?of?Interaction:?Face?to?face Date?of?Interaction:?03/11/2024 ?-?Patient?is?stable ?-?Medications?and?labs?reviewed. Patient?issues?include: Late?entry,?Pt?denies?c/o?SOB?and?cramping?while?on dialysis.?Tolerating dialysis?without?difficulty.?Patient?education?on?fluid?management?between?tx's. WCTM. Prior?Treatment:?03/16/2024? Dialyzer:?Optiflux?200NRe? Dialysate:?2.0?K,?2.5 Ca,?1.0?Mg,?100?Dextrose?(G2251)? Prescribed?Time:?4:30? Actual?Time:?04:30? Avg?BFR:?400? Avg?DFR:?650? Wt?Gain?(kg):?5.30? EDW?(kg):?135.00? Home?Medications ?allopurinol?(allopurinol) 100?mg,?oral,?4?tablet?once?a?day ??apixaban?(apixaban) 5?mg,?oral,?1?tablet?every?twelve?hours ??atorvastatin?(atorvastatin) 40?mg,?oral,?1?tablet?once?a?day ??Coreg?(carvedilol) 6.25?mg,?oral,?1?tablet?twice?a?day ??cyanocobalamin?(vitamin?B-12)?(cyanocobalamin?(vitamin?b-12)) 500?mcg,?oral,?1?tablet?once?a?day ??digoxin?(digoxin) 125?mcg?(0.125?mg),?oral,?1?tablet?three?times?a?week [take?on?M-W-] ??escitalopram?oxalate?(escitalopram?oxalate) 10?mg,?oral,?1?tablet?once?a?day [for?depression] ??iron?(ferrous?sulfate) 325?mg?(65?mg?iron),?oral,?1?mg?once?a?day ??levothyroxine?(levothyroxine) 25?mcg,?oral,?1?tablet?once?a?day ??Miralax?(polyethylene?glycol?3350) 17?gram,?oral,?1?packet?once?a?day ??Protonix?(pantoprazole) 40?mg,?oral,?1?tablet?once?a?day ??Renvela?(sevelamer?carbonate) 800?mg,?oral,?2?tablet?three?times?a?day ??trazodone?(trazodone) 50?mg,?oral,?1?tablet Ivana?A?Meño,?ELEMENT WINDING MACHINE TENDER END OF DOCUMENT
--- OUTSIDE RECORDS SUMMARY | 2024-08-03 10:51 | XMS_ITS ---
Author Name Ivana Wilder Address [address] [place] [address] Phone [phone] Organization [facility] e, NA DOCUMENT DISCLAIMER Multiple document versions may exist, please be sure you review the latest version. The information in the [facility] Progress Note Document represents a providers documented clinical note containing certain health and medical information. It may not contain the complete medical history for the patient and should be independently verified. The represented time in the document is Eastern Time PROVIDER ROUNDING NOTE BASIC HD PROVIDER?ROUNDING?NOTE?BASIC?HD Clinic:?[address] [place] [address]?[facility] Visit?date:?05/04/2022?00:00?Modality/setting:?IHD Yobany?Pascual?-?Chart?#:?[id number] Method?of?Interaction:?Face?to?face Date?of?Interaction:?05/08/2024 ?-?Patient?is?stable ?-?Medications?and?labs?reviewed. Patient?issues?include: Late?entry,?Pt?denies?c/o?SOB?and?cramping?while?on dialysis.?Tolerating dialysis?without?difficulty.?Patient?education?on?fluid?management?between?tx's. WCTM. Prior?Treatment:?05/11/2024? Dialyzer:?Optiflux?250NRe? Dialysate:?2.0?K,?2.5 Ca,?1.0?Mg,?100?Dextrose?(G2251)? Prescribed?Time:?4:30? Actual?Time:?04:30? Avg?BFR:?460? Avg?DFR:?700? Wt?Gain?(kg):?3.40? EDW?(kg):?135.00? Home?Medications ?allopurinol?(allopurinol) 100?mg,?oral,?4?tablet?once?a?day ??apixaban?(apixaban) 5?mg,?oral,?1?tablet?every?twelve?hours ??atorvastatin?(atorvastatin) 40?mg,?oral,?1?tablet?once?a?day ??Coreg?(carvedilol) 6.25?mg,?oral,?1?tablet?twice?a?day ??cyanocobalamin?(vitamin?B-12)?(cyanocobalamin?(vitamin?b-12)) 500?mcg,?oral,?1?tablet?once?a?day ??escitalopram?oxalate?(escitalopram?oxalate) 10?mg,?oral,?1?tablet?once?a?day [for?depression] ??iron?(ferrous?sulfate) 325?mg?(65?mg?iron),?oral,?1?mg?once?a?day ??levothyroxine?(levothyroxine) 25?mcg,?oral,?1?tablet?once?a?day ??Protonix?(pantoprazole) 40?mg,?oral,?1?tablet?once?a?day ??Renvela?(sevelamer?carbonate) 800?mg,?oral,?3?tablet?three?times?a?day ??trazodone?(trazodone) 50?mg,?oral,?1?tablet Iavna?A?Meño,?CATERING ASSISTANT END OF DOCUMENT
--- OUTSIDE RECORDS SUMMARY | 2024-08-03 10:51 | XMS_ITS ---
Author Name Adarsh Irwin Address [address] [place] [address] Phone [phone] Organization [facility] e, NA DOCUMENT DISCLAIMER Multiple document versions may exist, please be sure you review the latest version. The information in the [facility] Progress Note Document represents a providers documented clinical note containing certain health and medical information. It may not contain the complete medical history for the patient and should be independently verified. The represented time in the document is Eastern Time PROVIDER ROUNDING NOTE COMP Provider?Rounding?Note?Comp?-?Yobany?Pascual?-?Chart?#: [id number] Patient?was?seen?on:?12/28/2022 Was?Patient?seen?today?:?12/28/2022 Method?of?Interaction:?Face?to?face Date?of?Interaction:?12/28/2022 Patient?is?stable ?-?Medications?and?labs?reviewed.? Patient?issues?include: slowly?improving.??-HD?mainly?for?UF,?likely?has?some&# 160;RRF.??-large?fluid?gains.??-phos?hi,?start?binders, ?steal?sx,?access?ligated.??-k?and?phos?high,?counseled. Prior?Treatment:?12/26/2022? Dialyzer:?180NRe?Optiflux? Dialysate:?3.0?K,?2.5 Ca,?1.0?Mg,?100?Dextrose?(G3251)? Actual?Time:?04:30?Prescribed?Time:?4:30? Avg?BFR:?420?Avg?DFR:?770? Wt?Gain?(kg):?3.80?EDW?(kg):?138.50? post?Wt?(kg):? VITALS ?Date:?Temperature:?Pulse:?Respirations:?BP?(Sitting):?BP?(Standing):?Weight:? Volume?Management?Comments ADEQUACY ?spKt/V?eKdrt/V?OLC?([place])?spKtv?1.09?12/26/22 ???1.03 ?12/26/22 ???1.01?12/26/22 ???1.20?12/19/22 ???1.13 ?12/19/22 ???0.90?12/24/22 ???1.47?12/17/22 ???1.35 ?12/17/22 ???0.91?12/21/22 ?URR?Potassium,?Serum?&#160 ;?Bicarbonate?Creatinine?%?mEq/L?mEq/L?&#16 0;?mg/dL ?
--- OUTSIDE RECORDS SUMMARY | 2024-08-03 10:51 | XMS_ITS ---
Author Name Adarsh Irwin Address [address] [place] [address] Phone [phone] Organization [facility] e, NA DOCUMENT DISCLAIMER Multiple document versions may exist, please be sure you review the latest version. The information in the [facility] Progress Note Document represents a providers documented clinical note containing certain health and medical information. It may not contain the complete medical history for the patient and should be independently verified. The represented time in the document is Eastern Time PROVIDER ROUNDING NOTE COMP Provider?Rounding?Note?Comp?-?Yobany?Pascual?-?Chart?#: [id number] Method?of?Interaction:?Face?to?face Date?of?Interaction:?08/09/2023 Patient?is?stable ?-?Optimal?weight?addressed?with?patient?and?staff.? ?-?Medications?and?labs?reviewed.? Patient?issues?include: slowly?improving.??-HD?mainly?for?UF,?likely?has?some&# 160;RRF.??-large?fluid?gains.??-phos?hi,?start?binders, ?steal?sx,?access?ligated.??-k?and?phos?high,?coun seled.??-doing?okay,?seen?may?5?and?12.??-05/01&#16 0;and?16,?a?fib,?to?see?ep,?stop?losartan.??-05/24,& #160;stable?tx?and?labs.??-08/09,?stable?for?most?part. Prior?Treatment:?08/07/2023? Dialyzer:?Optiflux?200NRe? Dialysate:?2.0?K,?2.5 Ca,?1.0?Mg,?100?Dextrose?(G2251)? Actual?Time:?04:28?Prescribed?Time:?4:30? Avg?BFR:?450?Avg?DFR:?800? Wt?Gain?(kg):?3.70?EDW?(kg):?136.00? post?Wt?(kg):? ADEQUACY ?spKt/V?eKdrt/V?OLC?(Del)?spKtv?1.47?07/29/23 ???1.31 ?06/19/23 ???1.63?08/07/23 ???1.44?06/19/23 ???1.37 ?05/22/23 ???1.49?08/05/23 ???1.52?05/22/23 ???1.29 ?04/24/23 ???1.54?08/02/23 ?URR?Potassium,?Serum?&#160 ;?Bicarbonate?Creatinine?%?mEq/L?mEq/L?&#16 0;?mg/dL ?
--- OUTSIDE RECORDS SUMMARY | 2024-08-03 10:51 | XMS_ITS ---
Author Name Ivana Wilder Address [address] [place] [address] Phone [phone] Organization [facility] e, NA DOCUMENT DISCLAIMER Multiple document versions may exist, please be sure you review the latest version. The information in the [facility] Progress Note Document represents a providers documented clinical note containing certain health and medical information. It may not contain the complete medical history for the patient and should be independently verified. The represented time in the document is Eastern Time PROVIDER ROUNDING NOTE BASIC HD PROVIDER?ROUNDING?NOTE?BASIC?HD Clinic:?[address] [place] [address]?[facility] Visit?date:?05/04/2022?00:00?Modality/setting:?IHD Yobany?Pascual?-?Chart?#:?[id number] Method?of?Interaction:?Face?to?face Date?of?Interaction:?05/20/2024 ?-?Patient?is?stable ?-?High?blood?pressure?noted. ?-?Medications?and?labs?reviewed. Patient?issues?include: Late?entry,?Pt?denies?c/o?SOB?and?cramping?while?on dialysis.?Tolerating dialysis?without?difficulty.?Patient?education?on?fluid?management?between?tx's. WCTM. Prior?Treatment:?06/08/2024? Dialyzer:?Optiflux?250NRe? Dialysate:?2.0?K,?2.5 Ca,?1.0?Mg,?100?Dextrose?(G2251)? Prescribed?Time:?4:30? Actual?Time:?04:30? Avg?BFR:?440? Avg?DFR:?700? Wt?Gain?(kg):?3.60? EDW?(kg):?135.00? Home?Medications ?allopurinol?(allopurinol) 100?mg,?oral,?4?tablet?once?a?day ??apixaban?(apixaban) 5?mg,?oral,?1?tablet?every?twelve?hours ??atorvastatin?(atorvastatin) 40?mg,?oral,?1?tablet?once?a?day ??Coreg?(carvedilol) 6.25?mg,?oral,?1?tablet?twice?a?day ??cyanocobalamin?(vitamin?B-12)?(cyanocobalamin?(vitamin?b-12)) 500?mcg,?oral,?1?tablet?once?a?day ??escitalopram?oxalate?(escitalopram?oxalate) 10?mg,?oral,?1?tablet?once?a?day [for?depression] ??iron?(ferrous?sulfate) 325?mg?(65?mg?iron),?oral,?1?mg?once?a?day ??levothyroxine?(levothyroxine) 25?mcg,?oral,?1?tablet?once?a?day ??Protonix?(pantoprazole) 40?mg,?oral,?1?tablet?once?a?day ??Renvela?(sevelamer?carbonate) 800?mg,?oral,?3?tablet?three?times?a?day ??trazodone?(trazodone) 50?mg,?oral,?1?tablet Ivana?A?Meño,?OPTIMIZATION ANALYST END OF DOCUMENT
--- OUTSIDE RECORDS SUMMARY | 2024-08-03 10:51 | XMS_ITS ---
Author Name Ivana Wilder Address [address] [place] [address] Phone [phone] Organization [facility] e, NA DOCUMENT DISCLAIMER Multiple document versions may exist, please be sure you review the latest version. The information in the [facility] Progress Note Document represents a providers documented clinical note containing certain health and medical information. It may not contain the complete medical history for the patient and should be independently verified. The represented time in the document is Eastern Time PROVIDER ROUNDING NOTE BASIC HD PROVIDER?ROUNDING?NOTE?BASIC?HD Clinic:?[address] [place] [address]?[facility] Visit?date:?05/04/2022?00:00?Modality/setting:?IHD Yobany?Pascual?-?Chart?#:?[id number] Method?of?Interaction:?Face?to?face Date?of?Interaction:?03/04/2024 ?-?Patient?is?stable ?-?Medications?and?labs?reviewed. Patient?issues?include: Late?entry,?Pt?denies?c/o?SOB?and?cramping?while?on dialysis.?Tolerating dialysis?without?difficulty.?Patient?education?on?fluid?management?between?tx's. WCTM. Prior?Treatment:?03/16/2024? Dialyzer:?Optiflux?200NRe? Dialysate:?2.0?K,?2.5 Ca,?1.0?Mg,?100?Dextrose?(G2251)? Prescribed?Time:?4:30? Actual?Time:?04:30? Avg?BFR:?400? Avg?DFR:?650? Wt?Gain?(kg):?5.30? EDW?(kg):?135.00? Home?Medications ?allopurinol?(allopurinol) 100?mg,?oral,?4?tablet?once?a?day ??apixaban?(apixaban) 5?mg,?oral,?1?tablet?every?twelve?hours ??atorvastatin?(atorvastatin) 40?mg,?oral,?1?tablet?once?a?day ??Coreg?(carvedilol) 6.25?mg,?oral,?1?tablet?twice?a?day ??cyanocobalamin?(vitamin?B-12)?(cyanocobalamin?(vitamin?b-12)) 500?mcg,?oral,?1?tablet?once?a?day ??digoxin?(digoxin) 125?mcg?(0.125?mg),?oral,?1?tablet?three?times?a?week [take?on?M-W-] ??escitalopram?oxalate?(escitalopram?oxalate) 10?mg,?oral,?1?tablet?once?a?day [for?depression] ??iron?(ferrous?sulfate) 325?mg?(65?mg?iron),?oral,?1?mg?once?a?day ??levothyroxine?(levothyroxine) 25?mcg,?oral,?1?tablet?once?a?day ??Miralax?(polyethylene?glycol?3350) 17?gram,?oral,?1?packet?once?a?day ??Protonix?(pantoprazole) 40?mg,?oral,?1?tablet?once?a?day ??Renvela?(sevelamer?carbonate) 800?mg,?oral,?2?tablet?three?times?a?day ??trazodone?(trazodone) 50?mg,?oral,?1?tablet Ivana?A?Meño,?SEVERITY OF ILLNESS COORDINATOR END OF DOCUMENT
--- OUTSIDE RECORDS SUMMARY | 2024-08-03 10:51 | XMS_ITS ---
Author Name Rudy CASILLAS Esmer oneill Address Unknown Phone tel: Organization Unknown Address Unknown Phone tel: Care Team Providers Care Glass Frame Fitter Name Role Phone Jasmina Grant NP Primary [...] (Code: 8302-2 ) 71 ( [in_i] ) May 01, 2023 Weight (Code: 97051-5 ) 305.4 ( [lb_av] ) April 182022 BP (Systolic) (Code: 8480-6 ) 114 ( mm[Hg] ) Ju ne 2022 BP (Diastolic) (Code: 8462-4 ) 64 ( mm[Hg] ) J une 2022 Pulse (Code: 8867-4 ) 60 ( /min ) May 01 Oxygen Saturation (Code: 16002-2 ) 96 ( % ) May 01, 2023 Inhaled Oxygen Concentration (Code: 3150-0 ) 21 ( % ) May 01, 2023 BMI (Code: 00445-3 ) 42.6 ( kg/m2 ) May 01 Temperature (Code: 8310-5 ) 97.5 ( [degF] ) May 01, 2023 Respiration (Code: 9279-1 ) 20 ( /min ) May 01, 2023 HbA1c (Code: 4548-4 ) 5.9 ( % ) May 01 PROBLEMS Data in this section may be excluded or not available. FUNCTIONAL STATUS Functional Condition Date Status Feeding: Independent May 01, 2023 Active Bathing: Independent (or in shower) May 01
--- OUTSIDE RECORDS SUMMARY | 2024-08-03 10:51 | XMS_ITS ---
Author Name Kayla Liu NP Address Unknown Phone tel: Organization Unknown Address Unknown Phone tel: Care Team Providers Care Skin Washer Name Role Phone Kayla Liu NP Primary [...] [in_i] ) November 08, 2022 Weight (Code: 24594-9 ) 312 ( [lb_av] ) November 08, 2022 BP (Systolic) (Code: 8480-6 ) 122 ( mm[Hg] ) De cember 2021 BP (Diastolic) (Code: 8462-4 ) 64 ( mm[Hg] ) D ecember 2021 Pulse (Code: 8867-4 ) 78 ( /min ) October 192021 Oxygen Saturation (Code: 28955-6 ) 98 ( % ) November 08, 2022 BMI (Code: 49020-6 ) 43.5 ( kg/m2 ) October Temperature (Code: 8310-5 ) 97.3 ( [degF] ) Dece mber 2021 Respiration (Code: 9279-1 ) 18 ( /min ) Dece mber 2021 Blood Sugar (Code: 2339-0 ) 114 ( mg/dL ) Dece mber 2021 PROBLEMS Data in this section may be excluded or not available. Patient Care Teams * Care Skin Washer Role on Team Date Varady. Kayla Briggs
--- OUTSIDE RECORDS SUMMARY | 2024-08-03 10:51 | XMS_ITS ---
Author Name Rudy CASILLAS Esmer mai Address Unknown Phone tel: Organization Unknown Address Unknown Phone tel: Care Team Providers Care Senior Net Web Developer Name Role Phone Jasmina Grant NP Primary [...] [in_i] ) January 29, 2023 Weight (Code: 43328-9 ) 305.8 ( [lb_av] ) January 29, 2023 BP (Systolic) (Code: 8480-6 ) 110 ( mm[Hg] ) [facility] 2022 BP (Diastolic) (Code: 8462-4 ) 58 ( mm[Hg] ) [facility] 2022 Pulse (Code: 8867-4 ) 56 ( /min ) January 29, 2023 Oxygen Saturation (Code: 76448-8 ) 92 ( % ) January 29, 2023 Inhaled Oxygen Concentration (Code: 3150-0 ) 21 ( % ) January 29, 2023 BMI (Code: 94415-0 ) 42.6 ( kg/m2 ) January 29 Temperature (Code: 8310-5 ) 97.3 ( [degF] ) [facility] 2022 Respiration (Code: 9279-1 ) 34 ( /min ) [facility] 2022 PROBLEMS Data in this section may be excluded or not available. FUNCTIONAL STATUS Functional Condition Date Status Feeding: Independent January 29, 2023 Active Bathing: Independent (or in shower) January 29 Active Grooming: In
--- OUTSIDE RECORDS SUMMARY | 2024-08-03 10:51 | XMS_ITS ---
Author Name Rudy CASILLAS Esmer oneill Address Unknown Phone tel: Organization Unknown Address Unknown Phone tel: Care Team Providers Care Manufacturing Shift Supervisor Name Role Phone Jasmina Grant NP Primary [...] [in_i] ) May 01, 2023 Weight (Code: 68937-5 ) 305.4 ( [lb_av] ) April 182022 BP (Systolic) (Code: 8480-6 ) 114 ( mm[Hg] ) Ju ne 2022 BP (Diastolic) (Code: 8462-4 ) 64 ( mm[Hg] ) J une 2022 Pulse (Code: 8867-4 ) 60 ( /min ) May 01 Oxygen Saturation (Code: 28179-5 ) 96 ( % ) May 01, 2023 Inhaled Oxygen Concentration (Code: 3150-0 ) 21 ( % ) May 01, 2023 BMI (Code: 83223-5 ) 42.6 ( kg/m2 ) May 01 [...]
--- OUTSIDE RECORDS SUMMARY | 2024-08-03 10:51 | XMS_ITS ---
Author Name Adarsh Irwin Address [address] [place] [address] Phone [phone] Organization [facility] e, NA DOCUMENT DISCLAIMER Multiple document versions may exist, please be sure you review the latest version. The information in the [facility] Progress Note Document represents a providers documented clinical note containing certain health and medical information. It may not contain the complete medical history for the patient and should be independently verified. The represented time in the document is Eastern Time PROVIDER ROUNDING NOTE COMP Provider?Rounding?Note?Comp?-?Yobany?Pascual?-?Chart?#: [id number] Patient?was?seen?on:?03/29/2023 Was?Patient?seen?today?:?03/29/2023 Method?of?Interaction:?Face?to?face Date?of?Interaction:?03/29/2023 Patient?is?stable ?-?Medications?and?labs?reviewed.? Patient?issues?include: slowly?improving.??-HD?mainly?for?UF,?likely?has?some&# 160;RRF.??-large?fluid?gains.??-phos?hi,?start?binders, ?steal?sx,?access?ligated.??-k?and?phos?high,?coun seled.??-doing?okay,?seen?may?5?and?12. Prior?Treatment:?03/27/2023? Dialyzer:?Optiflux?200NRe? Dialysate:?2.0?K,?2.5 Ca,?1.0?Mg,?100?Dextrose?(G2251)? Actual?Time:?04:23?Prescribed?Time:?4:30? Avg?BFR:?500?Avg?DFR:?790? Wt?Gain?(kg):?3.40?EDW?(kg):?138.50? post?Wt?(kg):? VITALS ?Date:?Temperature:?Pulse:?Respirations:?BP?(Sitting):?BP?(Standing):?Weight:? Volume?Management?Comments ADEQUACY ?spKt/V?eKdrt/V?OLC?(Del)?spKtv?1.49?03/20/23 ???1.38 ?03/20/23 ???1.47?03/27/23 ???1.46?03/06/23 ???1.40 ?03/06/23 ???1.51?03/25/23 ???1.30?02/20/23 ???1.37 ?01/16/23 ???1.45?03/22/23 ?URR?Potassium,?Serum?&#160 ;?Bicarbonate?Creatinine?%?mEq/L?mEq/L?&#16 0;?
[2024-08-03] MEDS: HYDROmorphone HCL INJ (*CRX) 1 MG/ML SYR IV PUSH ×4 (11:33→20:29)
--- NOTE | 2024-08-03 11:38 | P.PNIM_ITS ---
Progress Note: A&P Assessment and Plan (1) Bacteremia: Code(s): R78.81 - Bacteremia Status: Acute Assessment and Plan: * Blood cultures times for Staphylococcus epidermidis * Vancomycin IV pharmacy to dose * Leukocytosis of 20.7 POA * Will need to monitor patient's renal function closely * Follow-up blood cultures pending * Some concern for infection at dialysis catheter also has implanted impulse cardiac device * CXR clear * Echocardiogram to rule out endocarditis * Continuous cardiac monitored * Nephrology consulted * may need consult to cardiology 08/02/24 * oxacillin resistant staph prelim * WBC 13 * Follow-up blood cultures in 48 hours 08/03/24: * echocardiogram unable to rule in or out endocarditis * cardiology consulted for CONCEPCIÓN * NPO after midnight * will need to discuss Nephrology may need to remove dialysis catheter * follow-up cultures ordered for tomorrow * will need long-term IV antibiotics at least 6 weeks however can likely do it during his dialysis (2) ESRD on hemodialysis: Code(s): N18.6 - End stage renal disease; Z99.2 - Dependence on renal dialysis Status: Acute Assessment and Plan: * Nephrology consulted * Dialysis MWF * monitor electrolytes daily * Renal diet * Avoid nephrotoxic drugs * Need to monitor due to current vancomycin pharmacy to dose (3) Fall: Code(s): W19.XXXA - Unspecified fall, initial encounter Status: Acute Assessment and Plan: * Ground level fall * 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 * PT/OT (4) Acute exacerbation of chronic low back pain: Code(s): M54.50 - Low back pain, unspecified; G89.29 - Other chronic pain Status: Acute Assessment and Plan: * Resume home pain medication * Discontinued oral steroids * Lidocaine patch to lumbar area * Scheduled to follow-up with Neurosurgery outpatient * May need MRI due to current infection 08/02/24: * steroids x1 * pain medication * MRI pending 08/03/24 * unable to do MRI due to impulse device * continue with pain control * PT OT (5) Anemia of chronic disease: Code(s): D63.8 - Anemia in other chronic diseases classified elsewhere Status: Acute Assessment and Plan: * Secondary to ESRD * Hgb stable * CBC daily (6) Hyperkalemia: Code(s): E87.5 - Hyperkalemia Status: Acute Assessment and Plan: * K+ 5.2 POA * Patient not schedule for dialysis for 2 more days * Gave 1 dose of Lokelma * Follow-up CMP in the a.m. * On continuous cardiac monitoring 08/02/24 * K 4.8 today after Lokelma * will monitor plan for dialysis tomorrow Plan Code status: Full code per patient DVT prophylaxis: Eliquis Stress ulcer prophylaxis: MARII PT/OT notes: PT/OT Pending Disposition: Patient was admitted to the medical unit for bacteremia will continue with IV vancomycin
--- NOTE | 2024-08-03 11:38 | PM.IMPN ---
Progress Note: A&P Assessment and Plan (1) Bacteremia: Code(s): R78.81 - Bacteremia Status: Acute Assessment and Plan: Blood cultures times for Staphylococcus epidermidis Vancomycin IV pharmacy to dose Leukocytosis of 20.7 POA Will need to monitor patient's renal function closely Follow-up blood cultures pending Some concern for infection at dialysis catheter also has implanted impulse cardiac device CXR clear Echocardiogram to rule out endocarditis Continuous cardiac monitored Nephrology consulted may need consult to cardiology 08/02/24 oxacillin resistant staph prelim WBC 13 Follow-up blood cultures in 48 hours 08/03/24: echocardiogram unable to rule in or out endocarditis cardiology consulted for CONCEPCIÓN NPO after midnight will need to discuss Nephrology may need to remove dialysis catheter follow-up cultures ordered for tomorrow will need long-term IV antibiotics at least 6 weeks however can likely do it during his dialysis (2) ESRD on hemodialysis: Code(s): N18.6 - End stage renal disease; Z99.2 - Dependence on renal dialysis Status: Acute Assessment and Plan: Nephrology consulted Dialysis MWF monitor electrolytes daily Renal diet Avoid nephrotoxic drugs Need to monitor due to current vancomycin pharmacy to dose (3) Fall: Code(s): W19.XXXA - Unspecified fall, initial encounter Status: Acute Assessment and Plan: Ground level fall 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s Lidocaine patch to lumbar area Scheduled to follow-up with Neurosurgery outpatient May need MRI due to current infection 08/02/24: steroids x1 pain medication MRI pending 08/03/24 unable to do MRI due to impulse device continue with pain control PT OT (5) Anemia of chronic disease: Code(s): D63.8 - Anemia in other chronic diseases classified elsewhere Status: Acute Assessment and Plan: Secondary to ESRD Hgb stable CBC daily (6) Hyperkalemia: Code(s): E87.5 - Hyperkalemia Status: Acute Assessment and Plan: K+ 5.2 POA Patient not schedule for dialysis for 2 more days Gave 1 dose of Lokelma Follow-up CMP in the a.m. On continuous cardiac monitoring 08/02/24 K 4.8 today after Jennifer will monitor plan for dialysis tomorrow Plan Code status: Full code per patient DVT prophylaxis: Eliquis Stress ulcer prophylaxis: NA PT/OT notes: PT/OT Pending Disposition: Patient was admitted to the medical unit for bacteremia will continue with IV vancomycin MRSA. follow-up cultures pending will need CONCEPCIÓN to rule out endocarditis. Plan will be for discharge back to home when medically stable. will likely be able to get his long-term IV antibiotic during his dialysis outpatient. Time Spent With Patient Time with patient: 15 - 25 minutes Subjective Date/time seen: 08/03/24 11:38 Interval history: Admission: Patient is a 68-year-old male who presented to the emergency department with complaints of fall. Patient was called earlier today from [facility] provider regarding his positive blood cultures after he had been discharged to home following a recent admission due to lower back strain. Patient was requested to return to the hospital for further evaluation and treatment for bacteremia. Patient had been directly admitted to the medical floor however when he was walking in he attempted to sit down in wheelchair he became lightheaded and fell hitting his head, small laceration noted to forehead. Patient was then taken to the ER for immediate evaluation. Patient previous blood cultu
[2024-08-03] MEDS: HEPARIN SODIUM 1,000 UNITS/ML VIAL 6000 UNITS IV PUSH (13:11)
[2024-08-03] MEDS: HYDROcodone/acetaminophen (*CRX) 10-325 MG TABLET 1 TAB PO (14:03)
[2024-08-03] MEDS: methocarbamoL 750 MG TABLET PO ×3 (14:05→20:28)
[2024-08-03] MEDS: PANTOPRAZOLE 40 MG TABLET PO (14:05)
[2024-08-03] MEDS: SEVELAMER CARBONATE 800 MG TABLET PO ×2 (14:05→17:30)
[2024-08-03] MEDS: ISOSORBIDE MONONITRATE 60 MG TAB.ER.24H PO (14:06)
[2024-08-03] MEDS: allopurinoL 300 MG TABLET PO (14:06)
[2024-08-03] MEDS: ATORVASTATIN 40 MG TABLET PO (14:06)
[2024-08-03] MEDS: ESCITALOPRAM OXALATE 10 MG TABLET PO (14:06)
[2024-08-03] MEDS: APIXABAN 5 MG TABLET PO ×2 (14:06→17:30)
[2024-08-03] MEDS: LIDOCAINE 5% PATCH 1 PATCH TRANSDERM (14:09)
--- NOTE | 2024-08-03 14:37 | PC.NURSE ---
All nursing documention on todays date from 0700 to present has been completed by Haylee BENÍTEZ.
[2024-08-03 16:49] LABS: Glucose Point of Care 197 mg/dl (65-105)
[2024-08-03] MEDS: INSULIN HUMAN ISOPHAN/REGULAR 70/30 (*BKC) 100 UNITS/ML 30 UNITS SUB-Q (17:31)
[2024-08-03 19:56] LABS: Glucose Point of Care 207 mg/dl (65-105)
[2024-08-03] MEDS: traZODone HCL 50 MG TABLET PO (20:28)
[2024-08-03] MEDS: VANCOMYCIN 1,000 MG/NS 250 ML 1,000 MG/250 ML BAG 250 MG IVPB (20:30)
--- NOTE | 2024-08-03 20:41 | PM.EVENT ---
Event Note Event Note Event Note: RN called me that the patient was crying out in severe pain at his left hip in over the left ribs. He apparently had a fall while he was down the emergency department and has a small bruise on the left hip. He is also complaining of severe back pain which has been his complaints since admission. Left hip/pelvis x-ray and rib x-rays have been ordered. Chart was briefly reviewed. He is currently on vancomycin for staphylococcus epidermidis bacteremia, presumably related to dialysis catheter. Given his worsening back pain an MRI would be prudent however he has some sort of stimulator which precludes him from getting an MRI at this facility. He lists an allergy to contrast dye but may be able to be pretreated depending on his allergy. Unclear if suspect or bone scintigraphy or SPECT would be of benefit here. Defer to daytime hospitalist.
[2024-08-03] MEDS: HYDROcodone/acetaminophen (*CRX) 5-325 MG TABLET 1 TAB PO (22:15)
[2024-08-04] VITALS (29 sets, daily range): BP systolic 102–167; BP diastolic 32–75; PULSE 47–70; RESP 15–22; TEMP 36.2–37.1; O2SAT 87–100
[2024-08-04] MEDS: HYDROmorphone HCL INJ (*CRX) 1 MG/ML SYR IV PUSH ×2 (02:17→13:32)
[2024-08-04] MEDS: HYDROcodone/acetaminophen (*CRX) 10-325 MG TABLET 1 TAB PO ×3 (05:12→16:34)
[2024-08-04] MEDS: LEVOTHYROXINE SODIUM 25 MCG TABLET PO (05:12)
[2024-08-04 06:40] LABS: Basophils Percent Auto 0.1 % (0.2-1.2); Eosinophils Absolute Auto 0.1 K/mm3 (0-0.3); Eosinophils Percent Auto 0.4 % (0-4.4); Hematocrit 32.8 % (42.0-52.0); Hemoglobin 10.5 g/dL (14.0-18.0); Immature Granulocyte Absolute 0.31 K/mm3 (0.00-0.031); Lymphocytes Absolute Auto 1.24 K/mm3 (0.9-3.2); Lymphocytes Percent Auto 7.8 % (18.3-44.2); Mean Corpuscular Hemoglobin 34.4 pg (26-34); Mean Corpuscular Volume 107.5 fl (80-100); Mean Platelet Volume 11.9 fl (7.4-10.4); Monocytes Absolute Auto 1.1 K/mm3 (0.1-0.6); Monocytes Percent Auto 6.7 % (2.6-8.5); Neutrophils Absolute Auto 13.1 K/mm3 (1.3-6.7); Platelet Count Result 159 k/mm3 (150-375); Red Blood Count 3.05 M/mm3 (4.6-6.20); Red Cell Distribution Width 15.5 % (11.5-14.5); White Blood Count 15.8 K/mm3 (4.5-10.0)
[2024-08-04 07:07] LABS: Anisocytosis 1+; Macrocytosis 1+ (NORMAL); Platelet Estimate Adequate (Adequate); Schistocytes None Seen
[2024-08-04 07:13] LABS: Alanine Aminotransferase 9 U/L (6-50); Alkaline Phosphatase 70 U/L (38-126); Anion Gap 9 mmol/L (4-12); Aspartate Amino Transferase 11 U/L (17-59); Bilirubin,Total 0.9 mg/dL (0.2-1.3); Blood Urea Nitrogen 69 mg/dL (9-20); Calcium 7.6 mg/dL (8.4-10.2); Carbon Dioxide 32 mmol/L (22-30); Chloride 94 mmol/L (98-107); Estimated CRCL calculation 12 ml/min; Estimated Glomerular Filt Rate 8; Glucose 102 mg/dL (65-110); Magnesium 1.9 mg/dL (1.6-2.3); Potassium 4.4 mmol/L (3.4-5.0); Sodium 135 mmol/L (137-145)
[2024-08-04 07:29] LABS: Glucose Point of Care 106 mg/dl (65-105)
--- NOTE | 2024-08-04 08:00 | ECHO_ITS ---
Patient Info Name: Yobany Garner Age: 68 years : 1955 Gender: Male Ht: 71 in Wt: 305 lbs BSA: 2.70 m2 Technical Quality: Good Exam Date: 08/04/2024 8:24 AM Exam Location: Echo Lab Patient Status: Inpatient Admit Date: 08/01/2024 Staff Ordering Physician: Ascencion Monroy DO House Mother: Jazzy Harrell RDCS Attending Provider: Katie Landaverde APRN Referring Physician: Porfirio BURT; Exam Type: CA echo transesophageal Study Info Indications - BACTEREMIA R/O ENDOCARDITIS Complete two-dimensional, color flow and Doppler transesophageal study is performed. Procedure Details Risks/benefits/alternative to CONCEPCIÓN discuss with patient annd he gave informed consent. He is monitored electrocardiographically, vitals and pulse ox. He was in normal rhythm, BP 120/70, HR 70 bpm and pulse >95%. Cetacaine spray x2 to posterior oropharynx. Fentanyl 25 mcg and Versed 2 mg IV given for conscious sedation. CONCEPCIÓN probe advanced without incident into esophagus. Multiple images obtained. Agitated saline administered x 1. CONCEPCIÓN probe withdrawn and no bleed on CONCEPCIÓN probe tip. Patient tolerated procedure well with no complications. Summary 1. Transesophageal echocardiogram. 2. Left ventricular chamber dimension is normal. 3. There is mild concentric increased left ventricular wall thickness. 4. Left ventricular systolic function is normal with an ejection fraction of 60-65%. 5. The left ventricular diastolic function is indeterminate as it was not assessed. 6. Linear artifact in right ventricle suggestive of catheter(s), pacemaker lead(s), or ICD lead(s), without vegetation. 7. Left atrial chamber dimension is moderately enlarged. 8. Linear artifact in the right atrium suggestive of catheter(s), pacemaker lead(s), or ICD lead(s) without vegetation. 9. There is mild aortic valve sclerosis. 10. The mitral valve has mildly calcified annulus. 11. There is mild mitral valve regurgitation. 12. There is trace tricuspid valve regurgitation. Left Ventricle Left ventricular systolic function is normal with an ejection fraction of 60-65%. The left ventricular diastolic function is indeterminate as it was not assessed. Transesophageal echocardiogram. Left ventricular chamber dimension is normal. There is mild concentric increased left ventricular wall thickness. Right Ventricle Linear artifact in right ventricle suggestive of catheter(s), pacemaker lead(s), or ICD lead(s), without vegetation. Right ventricular chamber dimension is normal. Right ventricular systolic function is normal. Left Atria Left atrial chamber dimension is moderately enlarged. Right Atria Linear artifact in the right atrium suggestive of catheter(s), pacemaker lead(s), or ICD lead(s) without vegetation. Right atrial chamber dimension is normal. Atrial Septum Agitated saline injection opacified right side cardiac chambers without shunt to left side cardiac chambers. Intact interatrial septum visualized by 2D, color flow and agitated saline imaging. Atrial Appendage There is no mass visualized in the left atrial appendage. Aortic Valve The aortic valve is trileaflet. There is mild aortic valve sclerosis. There is no aortic valve stenosis. There is no aortic valve regurgitation. No aortic valve vegetation visualized. Pulmonic Valve There is no pulmonic regurgitation. No pulmonic valve vegetation visualized. Mitral Valve The mitral valve has mildly calcified annulus. There is no mitral valve stenosis. There is mild mitral valve regurgitation. No mitral valve vegetation visualized. Tricuspid Valve There is trace tricuspid chari
--- NOTE | 2024-08-04 09:16 | PM.PNCARD ---
Progress Note: A&P Assessment and Plan (1) Bacteremia: Code(s): R78.81 - Bacteremia Status: Acute Assessment and Plan: Discuss CONCEPCIÓN to r/o endocarditis and he is agreeable. 08/04/24 CONCEPCIÓN did not show any endocarditis. Will sign off. 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 (2) CAD (coronary artery disease), autologous vein bypass graft: Code(s): I25.810 - Atherosclerosis of coronary artery bypass graft(s) without angina pectoris Status: Acute Assessment and Plan: Stable. (3) Hypertension: Code(s): I10 - Essential (primary) hypertension Status: Chronic Assessment and Plan: Stable. (4) ESRD on hemodialysis: Code(s): N18.6 - End stage renal disease; Z99.2 - Dependence on renal dialysis Status: Acute Assessment and Plan: On Hemodialysis. Subjective Date/time seen: 08/04/24 09:16 Interval history: Denies chest pain or sob. Exam Const: General: cooperative, healthy appearing and comfortable Resp: Auscultation: clear to auscultation bilaterally, no crackles, no rales, no rhonchi and no wheezes Cardio: Rate: regular rate Rhythm: regular rhythm Heart sounds: no murmurs Peripheral pulses: dorsalis pedis present GI: GI Palp: No abdominal tenderness and Yes Soft to palpation Neuro: General: oriented to person, oriented to place and oriented to time Extrem: Right lower extremity: no edema Left lower extremity: no edema Objective Data Vital Signs Vital Signs: Vital Signs - 24 hr 08/03/24 10:00 08/03/24 10:15 08/03/24 09:30 Temperature Pulse Rate 54 L 53 L 54 L Respiratory Rate Blood Pressure 151/59 H 154/50 H 140/48 L Pulse Oximetry Oxygen Delivery Oxygen Flow Rate 08/03/24 09:45 08/03/24 10:30 08/03/24 10:45 Temperature Pulse Rate 55 L 53 L 53 L Respiratory Rate Blood Pressure 134/39 L 142/38 H 140/57 L Pulse Oximetry Oxygen Delivery Oxygen Flow Rate 08/03/24 11:30 08/03/24 11:45 08/03/24 13:01 Temperature 98.1 F Pulse Rate 54 L 51 L 53 L Respiratory Rate 16 Blood Pressure 126/66 135/54 L 147/89 H Pulse Oximetry Oxygen Delivery Oxygen Flow Rate 08/03/24 11:00 08/03/24 11:15 08/03/24 12:00 Temperature Pulse Rate 65 54 L 53 L Respiratory Rate Blood Pressure 136/34 L 139/47 L 139/50 L Pulse Oximetry Oxygen Delivery Oxygen Flow Rate 08/03/24 12:15 08/03/24 12:30 08/03/24 12:45 Temperature Pulse Rate 52 L 52 L 52 L Respiratory Rate Blood Pressure 143/58 H 146/62 H 143/67 H Pulse Oximetry Oxygen Delivery Oxygen Flow Rate 08/03/24 12:56 08/03/24 14:00 08/03/24 12:00 Temperature 97.2 F L Pulse Rate 53 L 91 88 Respiratory Rate 16 Blood Pressure 136/54 L 120/44 L Pulse Oximetry 94 Oxygen Delivery Oxygen Flow Rate 08/03/24 16:00 08/03/24 21:27 08/03/24 20:00 Temperature 98.0 F Pulse Rate 91 66 Respiratory Rate 19 Blood Pressure 109/45 L Pulse Oximetry 97 Oxygen Delivery Room Air Oxygen Flow Rate 08/03/24 20:00 08/04/24 00:00 08/04/24 04:00 Temperature Pulse Rate 62 55 L 66 Respiratory Rate Blood Pressure Pulse Oximetry Oxygen Delivery Oxygen Flow Rate 08/04/24 05:48 08/04/24 08:25 08/04/24 08:30 Temperature 97.1 F L Pulse Rate 63 57 L 66 Respiratory Rate 20 20 15 Blood Pressure 118/43 L 143/67 H 129/62 Pulse Oximetry 95 98 87 L Oxygen Delivery Nasal Cannula Nasal Cannula Oxygen Flow Rate 2 2 08/04/24 08:35 08/04/24 08:40 08/04/24 08:55 Temperature Pulse Rate 64 57 L 58 L Respiratory Rate 19 20 18 Blood Pressure 124/54 L 115/53 L 107/58 L Pulse Oximetry 94 94 97 Oxygen Delivery Nasal Cannula Nasal Cannula Room Air Oxygen Flow Rate 5 3 Intake/Output Intake/Output: Intake & Output 08/01/24 08/02/24 08/03/24 08/04/24 23:59 23:59 23:59 23:59 Intake Total 1220 2070 2390 500 Output Total 4 3004 0
[2024-08-04] MEDS: ISOSORBIDE MONONITRATE 60 MG TAB.ER.24H PO (10:23)
[2024-08-04] MEDS: methocarbamoL 750 MG TABLET PO ×3 (10:23→21:50)
[2024-08-04] MEDS: LIDOCAINE 5% PATCH 1 PATCH TRANSDERM (10:23)
[2024-08-04] MEDS: SEVELAMER CARBONATE 800 MG TABLET PO ×2 (10:23→16:34)
[2024-08-04] MEDS: APIXABAN 5 MG TABLET PO (10:24)
[2024-08-04] MEDS: ESCITALOPRAM OXALATE 10 MG TABLET PO (10:24)
[2024-08-04] MEDS: PANTOPRAZOLE 40 MG TABLET PO (10:24)
[2024-08-04] MEDS: ATORVASTATIN 40 MG TABLET PO (10:24)
[2024-08-04] MEDS: allopurinoL 300 MG TABLET PO (10:24)
[2024-08-04 11:24] LABS: Glucose Point of Care 122 mg/dl (65-105)
[2024-08-04] MEDS: SODIUM CHLORIDE 0.9% IV 1,000 ML 999 ML IV CONT (11:30)
[2024-08-04] MEDS: diazePAM INJ (*CRX) 10 MG/2 ML SYRINGE 5 MG IV PUSH (11:56)
--- NOTE | 2024-08-04 12:39 | PCOTNOTE ---
Attempted to see pt for OT treatment this PM. Per RN, Pt is currently out of room for dialysis.
--- NOTE | 2024-08-04 12:46 | PM.PNNEP ---
Progress Note: A&P Assessment and Plan (1) End stage renal disease: Code(s): N18.6 - End stage renal disease Status: Chronic Assessment and Plan: HD yesterday and plan HD today (see #2) continue outpatient schedule of Sat/Sat/Fridays follow electrolytes, volume status, and clearance known to require 4.5 hour treatments to achieve adequate Kt/V and clearance (2) Bacteremia: Code(s): R78.81 - Bacteremia Status: Acute Assessment and Plan: persistently positive blood culture noted with Staph epidermis on antibiotic therapy potential sources of infection included tunneled HD catheter and/or pacemaker his back pain brings up the possibility of an epidural abscess or discitis as well -- however, unable to do MRI CONCEPCIÓN negative for endocarditis plan HD today and consult Surgery for removal of HD catheter may need temporary HD catheter placement later this week for ongoing dialytic support if blood culture remain positive may need to consider pacemaker removal as well if bacteremia does not clear.... (3) Hyperkalemia: Code(s): E87.5 - Hyperkalemia Status: Acute Assessment and Plan: due to ESRD adjust dialysis bath to compensate lokelma PRN follow K+ levels (4) Low back pain: Code(s): M54.50 - Low back pain, unspecified Status: Acute Assessment and Plan: acute on chronic issues CT of lumbar spine findings noted on last admission -- no acute findings unable to do MRI due to pacemaker (and hence cannot r/o spinal abscess or discitis) continue pain control PT/OT as tolerated (5) Hypertension: Code(s): I10 - Essential (primary) hypertension Status: Chronic Assessment and Plan: despite history, reasonable control with minimal medications suspect pain medication indirectly helping as well follow trend of hemodynamics (6) Anemia: Code(s): D64.9 - Anemia, unspecified Status: Chronic Assessment and Plan: due to ESRD H/H at goal AYALA with HD as needed follow H/H (7) Diabetes: Code(s): E11.9 - Type 2 diabetes mellitus without complications Status: Chronic Assessment and Plan: follow accu-cheks glycemic control per hospitalists Discussed case with Katie Landaverde APRN as well as the patient regarding dialysis today and HD catheter removal and possible need for temporary HD catheter depending pending results. Will continue to follow. Subjective Date/time seen: 08/04/24 12:46 Interval history: Follow-up for end stage renal disease on hemodialysis. Tolerated dialysis treatment yesterday without any issues or problems; CONCEPCIÓN done earlier today without evidence of endocarditis; persistent positive blood cultures noted; major complaint at the time of my visit is with regard to severe back pain and inability to get comfortable; tolerating dialysis treatment currently (seen on HD at 12: 35PM). Exam Narrative: General: elderly but WD/WN Caucsian male in NAD Heart: normal S1 and S2; no rub Lungs: clear to auscultation Abdomen: soft, nontender, nondistended, positive bowel sounds Extremities: no cyanosis or clubbing; no edema Skin: warm and intact Objective Data Vital Signs Vital Signs: Vital Signs Temp Pulse Resp BP Pulse Ox O2 Del Method O2 Flow Rate 08/04/24 12:30 58 L 131/51 L 08/04/24 12:08 98.4 F 55 L 22 H 102/32 L 94 08/04/24 12:16 59 L 119/45 L 08/04/24 08:55 58 L 18 107/58 L 97 Room Air 08/04/24 08:40 57 L 20 115/53 L 94 Nasal Cannula 3 08/04/24 08:35 64 19 124/54 L 94 Nasal Cannula 5 08/04/24 08:30 66 15 129/62 87 L Nasal Cannula 2 08/04/24 08:25 57 L 20 143/67 H 98 Nasal Cannula 2 08/04/24 05:48 97.1 F L 63 20 118/43 L 95 08/04/24 04:00 66 08/04/24 00:00 55 L 08/03/24 20:00 62 08/03/24 20:00 Room Air 08/03/24 21:27 98.0 F 66 1
--- NOTE | 2024-08-04 12:46 | P.PNNP_ITS ---
Progress Note: A&P Assessment and Plan (1) End stage renal disease: Code(s): N18.6 - End stage renal disease Status: Chronic Assessment and Plan: * HD yesterday and plan HD today (see #2) * continue outpatient schedule of Sat/Sat/Fridays * follow electrolytes, volume status, and clearance * known to require 4.5 hour treatments to achieve adequate Kt/V and clearance (2) Bacteremia: Code(s): R78.81 - Bacteremia Status: Acute Assessment and Plan: * persistently positive blood culture noted with Staph epidermis * on antibiotic therapy * potential sources of infection included tunneled HD catheter and/or pacemaker * his back pain brings up the possibility of an epidural abscess or discitis as well -- however, unable to do MRI * CONCEPCIÓN negative for endocarditis * plan HD today and consult Surgery for removal of HD catheter * may need temporary HD catheter placement later this week for ongoing dialytic support if blood culture remain positive * may need to consider pacemaker removal as well if bacteremia does not clear.... (3) Hyperkalemia: Code(s): E87.5 - Hyperkalemia Status: Acute Assessment and Plan: * due to ESRD * adjust dialysis bath to compensate * lokelma PRN * follow K+ levels (4) Low back pain: Code(s): M54.50 - Low back pain, unspecified Status: Acute Assessment and Plan: * acute on chronic issues * CT of lumbar spine findings noted on last admission -- no acute findings * unable to do MRI due to pacemaker (and hence cannot r/o spinal abscess or discitis) * continue pain control * PT/OT as tolerated (5) Hypertension: Code(s): I10 - Essential (primary) hypertension Status: Chronic Assessment and Plan: * despite history, reasonable control with minimal medications * suspect pain medication indirectly helping as well * follow trend of hemodynamics (6) Anemia: Code(s): D64.9 - Anemia, unspecified Status: Chronic Assessment and Plan: * due to ESRD * H/H at goal * AYALA with HD as needed * follow H/H (7) Diabetes: Code(s): E11.9 - Type 2 diabetes mellitus without complications Status: Chronic Assessment and Plan: * follow accu-cheks * glycemic control per hospitalists Discussed case with Katie Landaverde APRN as well as the patient regarding dialysis today and HD catheter removal and possible need for temporary HD catheter depending pending results. Will continue to follow. Subjective Date/time seen: 08/04/24 12:46 Interval history: Follow-up for end stage renal disease on hemodialysis. Tolerated dialysis treatment yesterday without any issues or problems; CONCEPCIÓN done earlier today without evidence of endocarditis; persistent positive blood cultures noted; major complaint at the time of my visit is with regard to severe back pain and inability to get comfortable; tolerating dialysis treatment currently (seen on HD at 12: 35PM). Exam Narrative: General: elderly but WD/WN Caucsian male in NAD Heart: normal S1 and S2; no rub Lungs: clear to auscultation Abdomen: soft, nontender, nondistended, positive bowel sounds Extremities: no cyanosis or clubbing; no edema Skin: warm and intact Objective Data Vital Signs Vital Signs: Vital Signs Temp Pulse Resp BP Pulse Ox O2 Del Method O2 Flow Rate
[2024-08-04] MEDS: EPOETIN ALFA-EPBX 4,000 UNITS/ML VIAL 4000 UNITS IV PUSH (12:47)
[2024-08-04 13:28] LABS: Vancomycin Random 18.4 ug/mL (10-20)
--- NOTE | 2024-08-04 14:17 | PM.CNGS ---
Assessment and Plan Assessment and plan (1) Bacteremia: Code(s): R78.81 - Bacteremia Status: Acute Assessment and Plan: I have reviewed the patient's chart and discussed current treatment with patient. He has persistent bacteremia and infectious sources include tunneled dialysis catheter, pacemaker, or other implantable devices. He has no signs of infection at the pacemaker, but leads certainly could be involved with biofilm and chronic infection. The dialysis catheter seems most likely to be the source since this is accessed frequently and has an external component to it. He is currently on full anticoagulation with Eliquis. It would be safest to hold the Eliquis for 2 days prior to proceeding with removal of the tunneled dialysis catheter to prevent any massive bleeding from the removal process. Will hold Eliquis starting today and plan for procedure either or Saturday. I discussed removal of the tunneled dialysis catheter. Patient does not have many other options for dialysis access which may make placing a new tunneled dialysis catheter very difficult. Could attempt replacement of a right internal jugular tunnel dialysis catheter through a new incision and new tract after a couple days but if this is unsuccessful then he will likely need to be referred to a vascular surgeon for dialysis access. 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 Dialysis catheter could be removed after 48 hours of Eliquis on hold. History of Present Illness Consult details Consult date: 08/04/24 Reason for consult: other (bacteremia) Requesting physician: Power Mancia MD Narrative: This is a 68-year-old man who I am asked to see for bacteremia and possible infected hemodialysis catheter. Patient has a right sided tunneled hemodialysis catheter in place. He states that this has been in place for several years. He has had multiple attempts at AV fistula placement that had been unsuccessful and has continued to need to use the tunneled dialysis catheter for dialysis access. He denies any significant redness or pain in this region. He states that the dialysis nurses every once a while will notice a scant amount of drainage. The patient also has a pacemaker in place. He underwent varun yesterday which showed no definite signs of endocarditis. Patient is mostly complaining of a lot of back pain and leg pain. He is on long-term anticoagulation with Eliquis. Review of Systems Review of Systems: All systems reviewed & are unremarkable except as noted in HPI and below Constitutional: Constitutional: Denies chills and Denies fever(s) Cardiovascular: Cardiovascular: Denies chest pain and Denies dyspnea Respiratory: Respiratory: Denies dyspnea Gastrointestinal: Gastrointestinal: Reports as per HPI [facility] Past Medical History Medical History (Updated 08/04/24 @ 14:28 by Qamar Rivers DO) CAD (coronary artery disease) CHF (congestive heart failure) Chronic back pain COPD (chronic obstructive pulmonary disease) Depression Diabetes ESRD on hemodialysis Gout Hyperlipidemia Hypertension Hypothyroidism JASE (obstructive sleep apnea) Sciatica Surgical History Surgical History (Updated 08/01/24 @ 16:07 by Power Mancia MD) S/P CABG (coronary artery bypass graft) S/P lumbar discectomy Status post insertion of dialysis catheter Family History Family History Mother Hypertension Cancer Diabetes stacia
--- NOTE | 2024-08-04 14:59 | P.PNIM_ITS ---
Progress Note: A&P Assessment and Plan (1) Bacteremia: Code(s): R78.81 - Bacteremia Status: Acute Assessment and Plan: * Blood cultures times for Staphylococcus epidermidis * Vancomycin IV pharmacy to dose * Leukocytosis of 20.7 POA * Will need to monitor patient's renal function closely * Follow-up blood cultures pending * Some concern for infection at dialysis catheter also has implanted impulse cardiac device * CXR clear * Echocardiogram to rule out endocarditis * Continuous cardiac monitored * Nephrology consulted * may need consult to cardiology 08/02/24 * oxacillin resistant staph prelim * WBC 13 * Follow-up blood cultures in 48 hours 08/03/24: * echocardiogram unable to rule in or out endocarditis * cardiology consulted for JANI * NPO after midnight * will need to discuss Nephrology may need to remove dialysis catheter * follow-up cultures ordered for tomorrow * will need long-term IV antibiotics at least 6 weeks however can likely do it during his dialysis 08/04/2024: * Jani did not show any endocarditis * Follow-up blood cultures x2 * Plan will be to dialyze daily and hold dialysis catheter * Will need temporary dialysis catheter placed preferably a few days after removal and given antibiotics * If blood cultures do not clear there is a likelihood patient will need his impulse device removed as well * There are concerns for discitis or epidural abscess unable to perform a lumbar MR due to impulse devices * Initiated potential transfer through [facility] requested Johan due to his radio officer practicing there (2) ESRD on hemodialysis: Code(s): N18.6 - End stage renal disease; Z99.2 - Dependence on renal dialysis Status: Acute Assessment and Plan: * Nephrology consulted * Dialysis MWF * monitor electrolytes daily * Renal diet * Avoid nephrotoxic drugs * Need to monitor due to current vancomycin pharmacy to dose 08/04/2024: * Dialysis daily * pull catheter line * Eliquis on hold * ABX x 2 days after removal * then repeat cultures * will then need a temporary line (3) Fall: Code(s): W19.XXXA - Unspecified fall, initial encounter Status: Acute Assessment and Plan: * Ground level fall * 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 * PT/OT (4) Acute exacerbation of chronic low back pain: Code(s): M54.50 - Low back pain, unspecified; G89.29 - Other chronic pain Status: Acute Assessment and Plan: * Resume home pain medication * Discontinued oral steroids * Lidocaine patch to lumbar area * Scheduled to follow-up with Neurosurgery outpatient * May need MRI due to current infection 08/02/24: * steroids x1 * pain medication * MRI pending 08/03/24 * unable to do MRI due to impulse device * continue with pain control * PT OT 08/04/24: * some concern for discitis or epidural abscess * transfer initiated * Added Valium for spasms * Pain management * Discussed case with neuro surgery currently patient is not a candidate for surgical intervention (5) Anemia of chronic disease: Code(s): D63.8 - Anemia in other chronic disease
--- NOTE | 2024-08-04 14:59 | PM.IMPN ---
Progress Note: A&P Assessment and Plan (1) Bacteremia: Code(s): R78.81 - Bacteremia Status: Acute Assessment and Plan: Blood cultures times for Staphylococcus epidermidis Vancomycin IV pharmacy to dose Leukocytosis of 20.7 POA Will need to monitor patient's renal function closely Follow-up blood cultures pending Some concern for infection at dialysis catheter also has implanted impulse cardiac device CXR clear Echocardiogram to rule out endocarditis Continuous cardiac monitored Nephrology consulted may need consult to cardiology 08/02/24 oxacillin resistant staph prelim WBC 13 Follow-up blood cultures in 48 hours 08/03/24: echocardiogram unable to rule in or out endocarditis cardiology consulted for JANI NPO after midnight will need to discuss Nephrology may need to remove dialysis catheter follow-up cultures ordered for tomorrow will need long-term IV antibiotics at least 6 weeks however can likely do it during his dialysis 08/04/2024: Jani did not show any endocarditis Follow-up blood cultures x2 Plan will be to dialyze daily and hold dialysis catheter Will need temporary dialysis catheter placed preferably a few days after removal and given antibiotics If blood cultures do not clear there is a likelihood patient will need his impulse device removed as well There are concerns for discitis or epidural abscess unable to perform a lumbar MR due to impulse devices Initiated potential transfer through [facility] requested Johan due to 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 (2) ESRD on hemodialysis: Code(s): N18.6 - End stage renal disease; Z99.2 - Dependence on renal dialysis Status: Acute Assessment and Plan: Nephrology consulted Dialysis MWF monitor electrolytes daily Renal diet Avoid nephrotoxic drugs Need to monitor due to current vancomycin pharmacy to dose 08/04/2024: Dialysis daily pull catheter line Eliquis on hold ABX x 2 days after removal then repeat cultures will then need a temporary line (3) Fall: Code(s): W19.XXXA - Unspecified fall, initial encounter Status: Acute Assessment and Plan: Ground level fall 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s Lidocaine patch to lumbar area Scheduled to follow-up with Neurosurgery outpatient May need MRI due to current infection 08/02/24: steroids x1 pain medication MRI pending 08/03/24 unable to do MRI due to impulse device continue with pain control PT OT 08/04/24: some concern for discitis or epidural abscess transfer initiated Added Valium for spasms Pain management Discussed case with neuro surgery currently patient is not a candidate for surgical intervention (5) Anemia of chronic disease: Code(s): D63.8 - Anemia in other chronic diseases classified elsewhere Status: Acute Assessment and Plan: Secondary to ESRD Hgb stable CBC daily (6) Hyperkalemia: Code(s): E87.5 - Hyperkalemia Status: Acute Assessment and Plan: K+ 5.2 POA Patient not schedule for dialysis for 2 more days Gave 1 dose of Lokelma Follow-up CMP in the a.m. On continuous cardiac monitoring 08/02/24 K 4.8 today after Lokelma will monitor plan for dialysis tomorrow Plan Code status: Full code per patient DVT prophylaxis: Eliquis Stress ulcer prophylaxis: NA PT/OT notes: PT/OT Pending Disposition: Patient was admitted to the medical unit for bacteremia will continue with IV vancomycin MRSA. follow-up cultures pending no endocarditis but continues with severe back pain. Will need dialysis catheter removed and temporar
[2024-08-04 16:34] LABS: Glucose Point of Care 118 mg/dl (65-105)
[2024-08-04] MEDS: diazePAM (*CRX) 2.5 MG TABLET PO ×2 (16:34→21:50)
[2024-08-04] MEDS: INSULIN HUMAN ISOPHAN/REGULAR 70/30 (*BKC) 100 UNITS/ML 30 UNITS SUB-Q (18:06)
[2024-08-04] MEDS: VANCOMYCIN 1,000 MG/NS 250 ML 1,000 MG/250 ML BAG 250 MG IVPB (18:07)
[2024-08-04 21:10] LABS: Glucose Point of Care 133 mg/dl (65-105)
[2024-08-04] MEDS: HYDROcodone/acetaminophen (*CRX) 5-325 MG TABLET 1 TAB PO (21:49)
[2024-08-04] MEDS: traZODone HCL 50 MG TABLET PO (21:50)
[2024-08-05] VITALS (9 sets, daily range): BP systolic 115–144; BP diastolic 51–78; PULSE 57–68; RESP 18–22; TEMP 36.7–37; O2SAT 95–98
[2024-08-05] MEDS: HYDROmorphone HCL INJ (*CRX) 1 MG/ML SYR IV PUSH (03:00)
[2024-08-05] MEDS: diazePAM (*CRX) 2.5 MG TABLET PO (06:00)
[2024-08-05] MEDS: LEVOTHYROXINE SODIUM 25 MCG TABLET PO (06:00)
[2024-08-05] MEDS: HYDROcodone/acetaminophen (*CRX) 10-325 MG TABLET 1 TAB PO ×2 (06:01→12:03)
[2024-08-05 07:00] LABS: Basophils Percent Auto 0.1 % (0.2-1.2); Eosinophils Absolute Auto 0.1 K/mm3 (0-0.3); Eosinophils Percent Auto 0.6 % (0-4.4); Hematocrit 34.8 % (42.0-52.0); Hemoglobin 11.1 g/dL (14.0-18.0); Immature Granulocyte Absolute 0.27 K/mm3 (0.00-0.031); Immature Granulocyte Percent A 1.8 % (0-0.5); Lymphocytes Absolute Auto 0.92 K/mm3 (0.9-3.2); Mean Corpuscular HGB Conc 31.9 g/dl (32-36); Mean Corpuscular Hemoglobin 35.2 pg (26-34); Mean Corpuscular Volume 110.5 fl (80-100); Monocytes Absolute Auto 1.2 K/mm3 (0.1-0.6); Monocytes Percent Auto 7.5 % (2.6-8.5); Neutrophils Absolute Auto 12.9 K/mm3 (1.3-6.7); Platelet Count Result 165 k/mm3 (150-375); Red Blood Count 3.15 M/mm3 (4.6-6.20); Red Cell Distribution Width 15.6 % (11.5-14.5); White Blood Count 15.3 K/mm3 (4.5-10.0)
[2024-08-05 07:18] LABS: Alanine Aminotransferase 9 U/L (6-50); Albumin Level 3.1 g/dL (3.5-5.1); Alkaline Phosphatase 80 U/L (38-126); Anion Gap 10 mmol/L (4-12); Aspartate Amino Transferase 12 U/L (17-59); Bilirubin,Total 0.8 mg/dL (0.2-1.3); Blood Urea Nitrogen 41 mg/dL (9-20); Calcium 8.3 mg/dL (8.4-10.2); Carbon Dioxide 26 mmol/L (22-30); Chloride 98 mmol/L (98-107); Estimated CRCL calculation 16 ml/min; Estimated Glomerular Filt Rate 11; Glucose 99 mg/dL (65-110); Potassium 4.4 mmol/L (3.4-5.0); Sodium 134 mmol/L (137-145)
[2024-08-05 07:40] LABS: Glucose Point of Care 102 mg/dl (65-105)
--- NOTE | 2024-08-05 07:40 | P.PNIM_ITS ---
Progress Note: A&P Assessment and Plan (1) Bacteremia: Code(s): R78.81 - Bacteremia Status: Acute Assessment and Plan: * Blood cultures times for Staphylococcus epidermidis * Vancomycin IV pharmacy to dose * Leukocytosis of 20.7 POA * Will need to monitor patient's renal function closely * Follow-up blood cultures pending * Some concern for infection at dialysis catheter also has implanted impulse cardiac device * CXR clear * Echocardiogram to rule out endocarditis * Continuous cardiac monitored * Nephrology consulted * may need consult to cardiology 08/02/24 * oxacillin resistant staph prelim * WBC 13 * Follow-up blood cultures in 48 hours 08/03/24: * echocardiogram unable to rule in or out endocarditis * cardiology consulted for JANI * NPO after midnight * will need to discuss Nephrology may need to remove dialysis catheter * follow-up cultures ordered for tomorrow * will need long-term IV antibiotics at least 6 weeks however can likely do it during his dialysis 08/04/2024: * Jani did not show any endocarditis * Follow-up blood cultures x2 * Plan will be to dialyze daily and hold dialysis catheter * Will need temporary dialysis catheter placed preferably a few days after removal and given antibiotics * If blood cultures do not clear there is a likelihood patient will need his impulse device removed as well * There are concerns for discitis or epidural abscess unable to perform a lumbar MR due to impulse devices * Initiated potential transfer through [facility] requested Johan due to 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 regulatory technician practicing 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 08/05: * Blood culture repeats with NGTD * Awaiting HD catheter to be removed either or Saturday * Needs temporary HD cath eventually * Awaiting transfer to [facility] accepted under Dr Carter (2) ESRD on hemodialysis: Code(s): N18.6 - End stage renal disease; Z99.2 - Dependence on renal dialysis Status: Acute Assessment and Plan: * Nephrology consulted * Dialysis MWF * monitor electrolytes daily * Renal diet * Avoid nephrotoxic drugs * Need to monitor due to current vancomycin pharmacy to dose 08/04/2024: * Dialysis daily * pull catheter line * Eliquis on hold * ABX x 2 days after removal * then repeat cultures * will then need a temporary line 08/05: * HD today * Holding Eliquis (3) Fall: Code(s): W19.XXXA - Unspecified fall, initial encounter Status: Acute Assessment and Plan: * Ground level fall * 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 * PT/OT (4) Acute exacerbation of chronic low back pain: Code(s): M54.50 - Low back pain, unspecified; G89.29 - Other chronic pain Status: Acute Assessment and Plan: * Resume home pain medication * Discontinued oral steroids * Lidocaine patch to lumbar area * Scheduled to follow-up with Neurosurgery outpatient * May need MRI due to current infection 08/02/24: * steroids x1 * pain medication * MRI pending 08/03/24 * unable to do MRI due to impulse device * continue with pain control * PT OT 08/04/24: * some concern for discitis or epidural abscess * transfer initiated * Added Valium for spasms * Pain management * Discussed case with marco
--- NOTE | 2024-08-05 07:40 | PM.IMPN ---
Progress Note: A&P Assessment and Plan (1) Bacteremia: Code(s): R78.81 - Bacteremia Status: Acute Assessment and Plan: Blood cultures times for Staphylococcus epidermidis Vancomycin IV pharmacy to dose Leukocytosis of 20.7 POA Will need to monitor patient's renal function closely Follow-up blood cultures pending Some concern for infection at dialysis catheter also has implanted impulse cardiac device CXR clear Echocardiogram to rule out endocarditis Continuous cardiac monitored Nephrology consulted may need consult to cardiology 08/02/24 oxacillin resistant staph prelim WBC 13 Follow-up blood cultures in 48 hours 08/03/24: echocardiogram unable to rule in or out endocarditis cardiology consulted for JANI NPO after midnight will need to discuss Nephrology may need to remove dialysis catheter follow-up cultures ordered for tomorrow will need long-term IV antibiotics at least 6 weeks however can likely do it during his dialysis 08/04/2024: Jani did not show any endocarditis Follow-up blood cultures x2 Plan will be to dialyze daily and hold dialysis catheter Will need temporary dialysis catheter placed preferably a few days after removal and given antibiotics If blood cultures do not clear there is a likelihood patient will need his impulse device removed as well There are concerns for discitis or epidural abscess unable to perform a lumbar MR due to impulse devices Initiated potential transfer through [facility] requested Johan due to his research support specialist practicing there 08/05: Blood culture repeats with NGTD Awaiting HD catheter to be removed either or Saturday Needs temporary HD cath eventually Awaiting transfer to [facility] accepted under Dr Carter (2) ESRD on hemodialysis: Code(s): N18.6 - End stage renal disease; Z99.2 - Dependence on renal dialysis Status: Acute Assessment and Plan: Nephrology consulted Dialysis MWF monitor electrolytes daily Renal diet Avoid nephrotoxic drugs Need to monitor due to current vancomycin pharmacy to dose 08/04/2024: Dialysis daily pull catheter line Eliquis on hold ABX x 2 days after removal then repeat cultures will then need a temporary line 08/05: HD today Holding Eliquis (3) Fall: Code(s): W19.XXXA - Unspecified fall, initial encounter Status: Acute Assessment and Plan: Ground level fall 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s Lidocaine patch to lumbar area Scheduled to follow-up with Neurosurgery outpatient May need MRI due to current infection 08/02/24: steroids x1 pain medication MRI pending 08/03/24 unable to do MRI due to impulse device continue with pain control PT OT 08/04/24: some concern for discitis or epidural abscess transfer initiated Added Valium for spasms Pain management Discussed case with neuro surgery currently patient is not a candidate for surgical intervention 08/05: Increased Valium to 5 mg TID scheduled Added scheduled Tylenol with PRN oxycodone 5-10 mg every 4 hours (5) Anemia of chronic disease: Code(s): D63.8 - Anemia in other chronic diseases classified elsewhere Status: Acute Assessment and Plan: Secondary to ESRD Hgb stable CBC daily Receiving Epogen (6) Hyperkalemia: Code(s): E87.5 - Hyperkalemia Status: Acute Assessment and Plan: K+ 5.2 POA Patient not schedule for dialysis for 2 more days Gave 1 dose of Lokelma Follow-up CMP in the a.m. On continuous cardiac monitoring 08/02/24 K 4.8 today after Lokelma will monitor plan for dialysis tomorrow Pl
[2024-08-05 07:55] LABS: Hypochromasia 1+; Macrocytosis 1+ (NORMAL); Platelet Estimate Adequate (Adequate); Schistocytes None Seen
[2024-08-05 08:02] LABS: Vancomycin Random 18.4 ug/mL (10-20)
[2024-08-05] MEDS: ISOSORBIDE MONONITRATE 60 MG TAB.ER.24H PO (08:49)
[2024-08-05] MEDS: ESCITALOPRAM OXALATE 10 MG TABLET PO (08:49)
[2024-08-05] MEDS: PANTOPRAZOLE 40 MG TABLET PO (08:49)
[2024-08-05] MEDS: allopurinoL 300 MG TABLET PO (08:49)
[2024-08-05] MEDS: SEVELAMER CARBONATE 800 MG TABLET PO ×3 (08:50→16:55)
[2024-08-05] MEDS: methocarbamoL 750 MG TABLET PO ×4 (08:50→21:06)
[2024-08-05] MEDS: ATORVASTATIN 40 MG TABLET PO (08:50)
[2024-08-05] MEDS: LIDOCAINE 5% PATCH 1 PATCH TRANSDERM (08:50)
[2024-08-05] MEDS: INSULIN HUMAN ISOPHAN/REGULAR 70/30 (*BKC) 100 UNITS/ML 30 UNITS SUB-Q (08:52)
[2024-08-05 11:46] LABS: Glucose Point of Care 111 mg/dl (65-105)
--- NOTE | 2024-08-05 12:14 | P.PNNP_ITS ---
Progress Note: A&P Assessment and Plan (1) End stage renal disease: Code(s): N18.6 - End stage renal disease Status: Chronic Assessment and Plan: * HD yesterday * continue dialysis 3x/week * follow electrolytes, volume status, and clearance * known to require 4.5 hour treatments to achieve adequate Kt/V and clearance (2) Bacteremia: Code(s): R78.81 - Bacteremia Status: Acute Assessment and Plan: * persistently positive blood cultures noted with Staph epidermis * HOWEVER, blood cultures from 07/28, 07/30, and 08/01 were all done BEFORE IV antibiotics were initiated * blood cultures done on 08/04 were done AFTER IV antibiotics were initiated * given this information, will follow 08/04 blood culture results to see if infection clears... * on antibiotic therapy * potential sources of infection included tunneled HD catheter and/or pacemaker * his back pain brings up the possibility of an epidural abscess or discitis as well -- however, unable to do MRI * CONCEPCIÓN negative for endocarditis * Surgery consulted for removal of HD catheter * HOWEVER, if 08/04 blood cultures remain negative, may not need HD catheter removal (in an attempt to salvage HD catheter) * I will attempt to inform Dr. Rivers of the above issues/information * continue current therapy (3) Hyperkalemia: Code(s): E87.5 - Hyperkalemia Status: Acute Assessment and Plan: * due to ESRD * adjust dialysis bath to compensate * lokelma PRN * follow K+ levels (4) Low back pain: Code(s): M54.50 - Low back pain, unspecified Status: Acute Assessment and Plan: * acute on chronic issues * CT of lumbar spine findings noted on last admission -- no acute findings * unable to do MRI due to pacemaker (and hence cannot r/o spinal abscess or discitis) * continue pain control * PT/OT as tolerated (5) Hypertension: Code(s): I10 - Essential (primary) hypertension Status: Chronic Assessment and Plan: * despite history, reasonable control with minimal medications * suspect pain medication indirectly helping as well * follow trend of hemodynamics (6) Anemia: Code(s): D64.9 - Anemia, unspecified Status: Chronic Assessment and Plan: * due to ESRD * H/H at goal * AYALA with HD as needed * follow H/H (7) Diabetes: Code(s): E11.9 - Type 2 diabetes mellitus without complications Status: Chronic Assessment and Plan: * follow accu-cheks * glycemic control per hospitalists Discussed case with Celina Torres APRN. Will continue to follow. Subjective Date/time seen: 08/05/24 12:14 Interval history: Follow-up for end stage renal disease on hemodialysis. Tolerated dialysis treatment yesterday without any issues or problems; CONCEPCIÓN done yesterday with results noted; unfortunately, he continues to have lumbar/back pain in association with BLE paraesthesias despite all interventions to date; sleepy/sedated a the time of my visit; HD catheter removal on hold since he was on Eliquis. Exam Narrative: General: elderly but WD/WN male in NAD Heart: normal S1 and S2; no rub Lungs: clear anteriorly; decreased at bases Abdomen: soft, nontender, nondistended, positive bowel sounds Extremities: no cyanosis or clubbing; no edema Skin: no rash Objective Data Vital Signs Vital Signs:
--- NOTE | 2024-08-05 12:14 | PM.PNNEP ---
Progress Note: A&P Assessment and Plan (1) End stage renal disease: Code(s): N18.6 - End stage renal disease Status: Chronic Assessment and Plan: HD yesterday continue dialysis 3x/week follow electrolytes, volume status, and clearance known to require 4.5 hour treatments to achieve adequate Kt/V and clearance (2) Bacteremia: Code(s): R78.81 - Bacteremia Status: Acute Assessment and Plan: persistently positive blood cultures noted with Staph epidermis HOWEVER, blood cultures from 07/28, 07/30, and 08/01 were all done BEFORE IV antibiotics were initiated blood cultures done on 08/04 were done AFTER IV antibiotics were initiated given this information, will follow 08/04 blood culture results to see if infection clears... on antibiotic therapy potential sources of infection included tunneled HD catheter and/or pacemaker his back pain brings up the possibility of an epidural abscess or discitis as well -- however, unable to do MRI CONCEPCIÓN negative for endocarditis Surgery consulted for removal of HD catheter HOWEVER, if 08/04 blood cultures remain negative, may not need HD catheter removal (in an attempt to salvage HD catheter) I will attempt to inform Dr. Rivers of the above issues/information continue current therapy (3) Hyperkalemia: Code(s): E87.5 - Hyperkalemia Status: Acute Assessment and Plan: due to ESRD adjust dialysis bath to compensate lokelma PRN follow K+ levels (4) Low back pain: Code(s): M54.50 - Low back pain, unspecified Status: Acute Assessment and Plan: acute on chronic issues CT of lumbar spine findings noted on last admission -- no acute findings unable to do MRI due to pacemaker (and hence cannot r/o spinal abscess or discitis) continue pain control PT/OT as tolerated (5) Hypertension: Code(s): I10 - Essential (primary) hypertension Status: Chronic Assessment and Plan: despite history, reasonable control with minimal medications suspect pain medication indirectly helping as well follow trend of hemodynamics (6) Anemia: Code(s): D64.9 - Anemia, unspecified Status: Chronic Assessment and Plan: due to ESRD H/H at goal AYALA with HD as needed follow H/H (7) Diabetes: Code(s): E11.9 - Type 2 diabetes mellitus without complications Status: Chronic Assessment and Plan: follow accu-cheks glycemic control per hospitalists Discussed case with Celina Torres APRN. Will continue to follow. Subjective Date/time seen: 08/05/24 12:14 Interval history: Follow-up for end stage renal disease on hemodialysis. Tolerated dialysis treatment yesterday without any issues or problems; CONCEPCIÓN done yesterday with results noted; unfortunately, he continues to have lumbar/back pain in association with BLE paraesthesias despite all interventions to date; sleepy/sedated a the time of my visit; HD catheter removal on hold since he was on Eliquis. Exam Narrative: General: elderly but WD/WN male in NAD Heart: normal S1 and S2; no rub Lungs: clear anteriorly; decreased at bases Abdomen: soft, nontender, nondistended, positive bowel sounds Extremities: no cyanosis or clubbing; no edema Skin: no rash Objective Data Vital Signs Vital Signs: Vital Signs Temp Pulse Resp BP Pulse Ox O2 Del Method 08/05/24 12:10 98.6 F 59 L 18 115/78 97 08/05/24 08:00 Room Air 08/05/24 08:00 57 L 08/05/24 05:44 98.1 F 68 22 H 142/51 H 98 08/05/24 04:00 58 L 08/05/24 00:00 62 08/04/24 20:00 70 08/04/24 20:00 Room Air 08/04/24 21:24 98.7 F 64 20 111/45 L 94 08/04/24 16:00 64 08/04/24 16:00 98.1 F 62 20 161/75 H 96 08/04/24 15:48 61 167/75 H 08/04/24 15:30 47 L 105/59 L Intake/Output Intake/Output: Intake & Output 08/02/24 08/03/24 08/04/24 0
[2024-08-05] MEDS: ACETAMINOPHEN 325 MG TABLET 650 MG PO ×2 (14:03→16:56)
[2024-08-05] MEDS: diazePAM (*CRX) 5 MG TABLET PO ×2 (14:04→21:06)
[2024-08-05 16:47] LABS: Glucose Point of Care 111 mg/dl (65-105)
--- NOTE | 2024-08-05 20:32 | PC.NURSE ---
report called to RN at [facility]. All questions answered.
[2024-08-05] MEDS: oxyCODONE HCL (*CRX) 5 MG TAB IR 10 MG PO (21:05)
[2024-08-06 05:29] LABS: Glucose Point of Care 131 mg/dl (65-105)
--- OUTSIDE RECORDS SUMMARY | 2024-08-07 10:20 | XMS_ITS ---
Author Name Jasvir Haque NP Address Unknown Phone tel: Organization Unknown Address Unknown Phone tel: Care Team Providers Care Firing Pin Gauger Name Role Phone Jasvir Haque NP Primary Care Provider tel: Pam Haas Primary Care Provider tel: ALLERGIES, ADVERSE REACTIONS [...] not available. Patient Care Teams * Care Firing Pin Gauger Role on Team Date Kueper. Jasvir Orozco
--- NOTE | 2024-08-07 13:33 | P.TS_ITS ---
Transfer Discharge Sum: Prov Provider Date of admission: 08/01/24 11:46 Primary care physician: Rudolph Fenton, MD Admitting clinician: Viral Suazo MD Consults: 08/01/24 Consult to Physician Routine Comment: for 08.01 @ 1230--/ Consulting Provider: Power Mancia physically impaired teacher/MD group to consult: Nephrology Reason for consultation: ESRD/Dialysis Has provider been notified: Yes 08/03/24 Consult to Physician Routine Comment: spoke to office @[phone] (,[place]) Consulting Provider: Ascencion Monroy physically impaired teacher/ group to consult: Cardiology Reason for consultation: bacteremia/JANI/R/O endocarditis/ Has provider been notified: Yes 08/04/24 Consult to Physician Routine Comment: Consulting Provider: Qamar Rivers physically impaired teacher/MD group to consult: removal of HD catheter after dialysis today (08/04) with possible temporary HD catheter on Saturday (persistent bacteremia) Reason for consultation: removal of HD catheter after dialysis today (08/04) w/ possible temp HD cath Has provider been notified: Yes DS: Admitting Diagnosis Discharge Date 08/06/24 Admitting Diagnosis bacteremia DS: Discharge Diagnosis Discharge Diagnosis (1) Bacteremia: Code(s): R78.81 - Bacteremia Status: Acute Assessment and Plan: * Blood cultures times for Staphylococcus epidermidis * Vancomycin IV pharmacy to dose * Leukocytosis of 20.7 POA * Will need to monitor patient's renal function closely * Follow-up blood cultures pending * Some concern for infection at dialysis catheter also has implanted impulse cardiac device * CXR clear * Echocardiogram to rule out endocarditis * Continuous cardiac monitored * Nephrology consulted * may need consult to cardiology 08/02/24 * oxacillin resistant staph prelim * WBC 13 * Follow-up blood cultures in 48 hours 08/03/24: * echocardiogram unable to rule in or out endocarditis * cardiology consulted for JAIN * NPO after midnight * will need to discuss Nephrology may need to remove dialysis catheter * follow-up cultures ordered for tomorrow * will need long-term IV antibiotics at least 6 weeks however can likely do it during his dialysis 08/04/2024: * Jani did not show any endocarditis * Follow-up blood cultures x2 * Plan will be to dialyze daily and hold dialysis catheter * Will need temporary dialysis catheter placed preferably a few days after removal and given antibiotics * If blood cultures do not clear there is a likelihood patient will need his impulse device removed as well * There are concerns for discitis or epidural abscess unable to perform a lumbar MR due to impulse devices * Initiated potential transfer through [facility] requested Johan due to his veterinary practitioner practicing there 08/05: * Blood culture repeats with NGTD * Awaiting HD catheter to be removed either or Saturday * Needs temporary HD cath eventually * Awaiting transfer to [facility] accepted under Dr Carter (2) ESRD on hemodialysis: Code(s): N18.6 - End stage renal disease; Z99.2 - Dependence on renal dialysis Status: Acute Assessment and Plan: * Nephrology consulted * Dialysis MWF * monitor electrolytes daily * Renal diet * Avoid nephrotoxic drugs * Need to monitor due to current vancomycin pharmacy to dose
--- NOTE | 2024-08-07 13:33 | PM.TDS ---
Transfer Discharge Sum: Prov Provider Date of admission: 08/01/24 11:46 Primary care physician: Rudolph Fenton, MD Admitting clinician: Viral Suazo MD Consults: 08/01/24 Consult to Physician Routine Comment: for 08.01 @ 0670--/ Consulting Provider: Power Mancia yardage caller/MD group to consult: Nephrology Reason for consultation: ESRD/Dialysis Has provider been notified: Yes 08/03/24 Consult to Physician Routine Comment: spoke to office @[phone] (,[place]) Consulting Provider: Ascencion Monroy yardage caller/ group to consult: Cardiology Reason for consultation: bacteremia/JANI/R/O endocarditis/ Has provider been notified: Yes 08/04/24 Consult to Physician Routine Comment: Consulting Provider: Qamar Rivers yardage caller/MD group to consult: removal of HD catheter after dialysis today (08/04) with possible temporary HD catheter on Saturday (persistent bacteremia) Reason for consultation: removal of HD catheter after dialysis today (08/04) w/ possible temp HD cath Has provider been notified: Yes DS: Admitting Diagnosis Discharge Date 08/06/24 Admitting Diagnosis bacteremia DS: Discharge Diagnosis Discharge Diagnosis (1) Bacteremia: Code(s): R78.81 - Bacteremia Status: Acute Assessment and Plan: Blood cultures times for Staphylococcus epidermidis Vancomycin IV pharmacy to dose Leukocytosis of 20.7 POA Will need to monitor patient's renal function closely Follow-up blood cultures pending Some concern for infection at dialysis catheter also has implanted impulse cardiac device CXR clear Echocardiogram to rule out endocarditis Continuous cardiac monitored Nephrology consulted may need consult to cardiology 08/02/24 oxacillin resistant staph prelim WBC 13 Follow-up blood cultures in 48 hours 08/03/24: echocardiogram unable to rule in or out endocarditis cardiology consulted for JANI NPO after midnight will need to discuss Nephrology may need to remove dialysis catheter follow-up cultures ordered for tomorrow will need long-term IV antibiotics at least 6 weeks however can likely do it during his dialysis 08/04/2024: Jani did not show any endocarditis Follow-up blood cultures x2 Plan will be to dialyze daily and hold dialysis catheter Will need temporary dialysis catheter placed preferably a few days after removal and given antibiotics If blood cultures do not clear there is a likelihood patient will need his impulse device removed as well There are concerns for discitis or epidural abscess unable to perform a lumbar MR due to impulse devices Initiated potential transfer through [facility] requested 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 08/05: Blood culture repeats with NGTD Awaiting HD catheter to be removed either or Saturday Needs temporary HD cath eventually Awaiting transfer to [facility] accepted under Dr Carter (2) ESRD on hemodialysis: Code(s): N18.6 - End stage renal disease; Z99.2 - Dependence on renal dialysis Status: Acute Assessment and Plan: Nephrology consulted Dialysis MWF monitor electrolytes daily Renal diet Avoid nephrotoxic drugs Need to monitor due to current vancomycin pharmacy to dose 08/04/2024: Dialysis daily pull catheter line Eliquis on hold ABX x 2 days after removal then repeat cultures will then need a temporary line 08/05: HD today Holding Eliquis (3) Fall: Code(s): W19.XXXA - Unspecified fall, initial encounter Status: Acute Assessment and Plan: Ground level fall 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
== END 2024-08-06 00:32 | disposition short-term general hospital (02) | DRG 314 ==
LOC: ANHED 11:51 → ANH3MEDSUR 12:41
PROVIDERS: Internal Medicine Cardiovascular Disease; Nurse Practitioner Family; Admitting Provider Internal Medicine; Emergency Provider Emergency Medicine; PCP Internal Medicine; Visit Provider Nurse Practitioner Acute Care
PROC: B24BZZ4 Ultrasonography of Heart with Aorta, Transesophageal (ICD-10-PCS; CPT 93312; principal; 2024-08-04 08:00)
DX: T82.7XXA Infection and inflammatory reaction due to other cardiac and vascular devices, implants and grafts, initial encounter (principal); N18.6 End stage renal disease; R78.81 Bacteremia; I13.2 Hypertensive heart and chronic kidney disease with heart failure and with stage 5 chronic kidney disease, or end stage renal disease; I25.810 Atherosclerosis of coronary artery bypass graft(s) without angina pectoris; B95.7 Other staphylococcus as the cause of diseases classified elsewhere; S01.81XA Laceration without foreign body of other part of head, initial encounter; W19.XXXA Unspecified fall, initial encounter; D63.1 Anemia in chronic kidney disease; E87.5 Hyperkalemia; E11.22 Type 2 diabetes mellitus with diabetic chronic kidney disease; E78.5 Hyperlipidemia, unspecified; E03.9 Hypothyroidism, unspecified; G47.33 Obstructive sleep apnea (adult) (pediatric); G89.29 Other chronic pain; I50.9 Heart failure, unspecified; J44.9 Chronic obstructive pulmonary disease, unspecified; M54.9 Dorsalgia, unspecified; Z99.2 Dependence on renal dialysis; Z87.891 Personal history of nicotine dependence; Z95.0 Presence of cardiac pacemaker; Z95.1 Presence of aortocoronary bypass graft; Z95.5 Presence of coronary angioplasty implant and graft; Z86.73 Personal history of transient ischemic attack (TIA), and cerebral infarction without residual deficits; Z79.01 Long term (current) use of anticoagulants; Z28.21 Immunization not carried out because of patient refusal
CPT/HCPCS: 12011; 36415; 70450; 71045; 71100; 73502; 80053; 80069; 80202; 82948; 83735; 84100; 85025; 85610; 85730; 87040; 87077; 87181; 93005; 93312; 93320; 93325; 96374; 96375; 97162; 97165; 97530; 99285; A9270; C8929; G0257; J1100; J1170; J1644; J1815; J2250; J3010; J3360; J3370; J7030; J7040; Q5105; Q9957